=== PATIENT | male | born 1945 | race Caucasian/White ===

== ENCOUNTER 2020-09-01 10:14 | Inpatient (IN) | payer MEDICARE, OTHER, SELFPAY ==
[2020-09-01] VITALS (18 sets, daily range): BP systolic 103–155; BP diastolic 61–85; PULSE 65–103; RESP 16–32; TEMP 36.4–37; O2SAT 80–98; BMI 31.2
--- NOTE | 2020-09-01 10:26 | XR_ITS ---
WS: [id number] XR chest 1V portable [id number] REASON FOR EXAM: sob FINDINGS: In comparison to previous examination of 03/08/2019, the patient has a large mass density projected ov er the right hilum. There are diffuse interstitial and patchy alveolar infiltrative changes throughou t both lungs. No definite pleural fluid. Degenerative changes in the thoracic spine and previous right shoulder injury. XR/XR chest 1V portable [id number] IMPRESSION: Probable right central lung mass which is developed since the previous examinat ion of 03/08/2019. Unlikely that this represents consolidated lung overlapping t he right hilum. Diffuse infiltrative process throughout both lungs which is most compatible wit h acute/subacute pneumonitis. This is a patient that may benefit from a contras t-enhanced CT scan of the chest since there appear to be 2 processes occurring.
--- NOTE | 2020-09-01 10:26 | ECG_ITS ---
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 Measurements Intervals [place] Rate: 74 P: 18 TN: 195 QRS: -63 QRSD: 193 T: -6 QT: 434 QTc: 482 Interpretive Statements SINUS RHYTHM RIGHT BUNDLE BRANCH BLOCK LEFT ANTERIOR FASCICULAR BLOCK [QRS AXIS <= -45, QR IN I, RS IN II] MODERATE VOLTAGE CRITERIA FOR LVH, CONSIDER NORMAL VARIANT POSSIBLE SEPTAL MYOCARDIAL INFARCTION [30 ms Q WAVE IN V1/V2], PROBABLY OLD Compared to ECG 03/09/2019 02:44:39 Right bundle-branch block now present Left anterior fascicular block now present Myocardial infarct finding now present First degree AV block no longer present Intraventricular conduction delay no longer present T-wave abnormality no longer present Electronically Signed On 09-01-2020 21:22:57 OPERATIONAL ASSISTANT by Gissel Hussein M.D. [id number]
[2020-09-01] MEDS: albuterol 8 gm MDI 2 PUFF INHALATION (10:30)
--- NOTE | 2020-09-01 10:31 | W.ED.SOB ---
HPI - SOB/Dyspnea General: Chief Complaint: COVID symptoms Stated Complaint: SOB Time Seen by Provider: 09/01/20 10:21 Source: patient Mode of arrival: ambulatory Limitations: no limitations History of Present Illness: HPI Narrative: 75-year-old male states he has a history of COPD and has been a longtime smoker. He states that he has had increasing shortness of breath over the last 1 to 2 weeks with getting much worse over the last 2 days. He had increased wheezing as well. He has had a cough and denies any fever. Patient here is 82% on room air. He states he is not on oxygen at home. Denies any worsening or improving factors. Associated symptoms: Deny abdominal pain, chest pain, fever(s), nausea or vomiting Review of Systems Const: Denies: fever(s), chills, body aches or change in appetite Eyes: Denies: blurry vision or eye discomfort ENMT: Denies: throat pain or dental pain Card: Denies: chest pain Resp: Reports: dyspnea and wheezing GI: Denies: abdominal pain, nausea, vomiting or diarrhea : Denies: dysuria Musc: Denies: neck pain or back pain Skin/Breast: Denies: rash Neuro: Denies: headache(s) Psych: Denies: depression Luciano/Lymph: Denies: easy bruising All/Imm: Denies: urticaria Physical Exam Const: COMMON NORMALS: no acute distress, patient oriented x3 and healthy appearing HENMT: COMMON NORMALS: normocephalic and atraumatic HEAD & SCALP: normocephalic and atraumatic Eye: COMMON NORMALS: Equal, round and reactive pupils present and EOMs intact bilaterally PUPIL: Yes Equal, round and reactive pupils present Neck/C-Spine: COMMON NORMALS: full ROM and supple Chest: COMMONS NORMALS: normal inspection of the chest and normal palpation of entire chest wall Resp: COMMON NORMALS: No retractions and No use of accessory muscles EFFORT & INSPECTION: Yes tachypneic AUSCULTATION: wheezes and diminished lung sounds Cardio: COMMON NORMALS: regular rate, regular rhythm and No murmurs present (Cardio) RATE: regular rate RHYTHM: regular rhythm GI: COMMON NORMALS: Normal to inspection, nondistended, normoactive bowel sounds present, Soft to palpation, non-tender and no masses PALPATION: Yes Soft to palpation Extremity: COMMON NORMALS: normal to inspection and full ROM Neuro: COMMON NORMALS: patient oriented x3, moves all extremities and no focal motor deficits Psych: COMMON NORMALS: mental status grossly normal, Normal thought process present and cooperative THOUGHT PROCESS: Normal thought process present Skin: COMMON NORMALS: no rashes or lesions noted and no wounds GENERAL SKIN EXAM: no rashes or lesions noted Course Vital Signs: Vital signs: Vital Signs Temperature 97.6 F 09/01/20 10:21 Pulse Rate 65 09/01/20 12:00 Respiratory Rate 19 H 09/01/20 12:00 Blood Pressure 131/68 09/01/20 12:00 Pulse Oximetry 91 09/01/20 12:00 MDM - SOB/Dyspnea MDM Narrative: Medical decision making narrative: Preston presents here with bilateral pneumonia likely Covid. His rapid Covid here is negative I believe he likely does have Covid and we will send off a PCR. Patient started IV antibiotics as well. X-ray appeared to have a mass I spoke to hospitalist and will admit. Patient still under contact precautions. Lab Data: Labs: Lab Results 09/01/20 09/01/20 09/01/20 Range/Units 10:35 11:00 11:00 WBC Cancelled Corrected WBC Cancelled RBC Cancelled Hgb Cancelled Hct Cancelled MCV Cancelled MCH Cancelled MCHC Cancelled RDW Cancelled Plt Count Cancelled MPV Cancelled Gran % Cancelled Neut % (Auto) Cancelled Lymph % (Auto) Cancelled [place] % (Auto) Cancelled Eos % (Auto) Cancelled Baso % (Auto) Cancelled Neut # (Auto) Cancelled Lymph # (Auto) Cancelled [place] # (Auto) Cancelled Eos # (Auto) Cancelled Baso # (Auto) Cancelled Absolute Gran (aut o) Cancelled Nucleated RBC % (a uto) Cancelled Nucleated RBCs # Cancelled PT Cancelled INR Cancelled Specimen Type Arterial Sample Site Radial, left ABG pH 7.47 H (7.35-7.45) ABG pCO2 42.8 (35-45) mmHg ABG pO2 67.1 L (80.0-100.0) mmH g ABG HCO3 30.9 H (22-26) mmol/L ABG Base Excess 6.3 H (-2.0-2.0) mmol/ L Jose Test Pos Hematocrit 44.1 (42-52) % Hgb O2 Saturation 92.4 L (95-100) % Carboxyhemoglobin 1.3 (0.4-20.1) %THgb Methemoglobin 0.8 (0.4-1.5) % Total Hemoglobin 14.4 (14-18) g/dL O2 Delivery Device Nc O2 Liters/Min 2.0 % FiO2 28.0 % App[employer] Real [employer] ID Amh Sodium (136-145) mmol/L Potassium (3.5-5.1) mmol/L Chloride (98-107) mmol/L Carbon Dioxide (22-29) mmol/L Anion Gap (5-19) BUN (8-23) mg/dL Creatinine (0.7-1.2) mg/dL GFR Calculation Glucose (65-115) mg/dL Calculated Osmolal ity (285-295) mOsm/k g Lactate (0.5-2.2) mmol/L Calcium (8.5-10.5) mg/dL Total Bilirubin (0.15-1.2) mg/dL AST (0-40) U/L ALT (0-41) U/L Alkaline Phosphata se (40-130) IU/L NT-Pro-B Natriuret Pep (0-450) pg/mL Total Protein (6.6-8.7) g/dL Albumin (3.5-5.2) g/dL Globulin (1.3-4.6) g/dL SARS-CoV-2 Ag (Rap id) (Negative) 09/01/20 09/01/20 09/01/20 Range/Units 11:00 11:00 11:28 WBC 10.0 Corrected WBC RBC 5.09 Hgb 14.1 Hct 44.2 MCV 86.8 MCH 27.7 L MCHC 31.9 RDW 13.5 Plt Count 301 MPV 9.5 Gran % Neut % (Auto) 76.7 Lymph % (Auto) 12.3 [place] % (Auto) 8.7 Eos % (Auto) 1.3 Baso % (Auto) 0.7 Neut # (Auto) 7.63 Lymph # (Auto) 1.2 [place] # (Auto) 0.9 Eos # (Auto) 0.1 Baso # (Auto) 0.1 Absolute Gran (aut o) Nucleated RBC % (a uto) 0 Nucleated RBCs # 0.0 PT INR Specimen Type Sample Site ABG pH (7.35-7.45) ABG pCO2 (35-45) mmHg ABG pO2 (80.0-100.0) mmH g ABG HCO3 (22-26) mmol/L ABG Base Excess (-2.0-2.0) mmol/ L Jose Test Hematocrit (42-52) % Hgb O2 Saturation (95-100) % Carboxyhemoglobin (0.4-20.1) %THgb Methemoglobin (0.4-1.5) % Total Hemoglobin (14-18) g/dL O2 Delivery Device O2 Liters/Min % FiO2 % [employer] ID Sodium 146 H (136-145) mmol/L Potassium 3.4 L (3.5-5.1) mmol/L Chloride 108 H (98-107) mmol/L Carbon Dioxide 31 H (22-29) mmol/L Anion Gap 10.4 (5-19) BUN 15 (8-23) mg/dL Creatinine 1.0 (0.7-1.2) mg/dL GFR Calculation Not Reportable Glucose 65 (65-115) mg/dL Calculated Osmolal ity 301 H (285-295) mOsm/k g Lactate 1.3 (0.5-2.2) mmol/L Calcium 10.1 (8.5-10.5) mg/dL Total Bilirubin 0.5 (0.15-1.2) mg/dL AST 31 (0-40) U/L ALT 26 (0-41) U/L Alkaline Phosphata se 108 (40-130) IU/L NT-Pro-B Natriuret Pep 315 (0-450) pg/mL Total Protein 7.3 (6.6-8.7) g/dL Albumin 3.1 L (3.5-5.2) g/dL Globulin 4.2 (1.3-4.6) g/dL SARS-CoV-2 Ag (Rap id) (Negative) 09/01/20 09/01/20 Range/Units 11:28 11:30 WBC Corrected WBC RBC Hgb Hct MCV MCH MCHC RDW Plt Count MPV Gran % Neut % (Auto) Lymph % (Auto) [place] % (Auto) Eos % (Auto) Baso % (Auto) Neut # (Auto) Lymph # (Auto) [place] # (Auto) Eos # (Auto) Baso # (Auto) Absolute Gran (aut o) Nucleated RBC % (a uto) Nucleated RBCs # PT 14.90 INR 1.13 Specimen Type Sample Site ABG pH (7.35-7.45) ABG pCO2 (35-45) mmHg ABG pO2 (80.0-100.0) mmH g ABG HCO3 (22-26) mmol/L ABG Base Excess (-2.0-2.0) mmol/ L Jose Test Hematocrit (42-52) % Hgb O2 Saturation (95-100) % Carboxyhemoglobin (0.4-20.1) %THgb Methemoglobin (0.4-1.5) % Total Hemoglobin (14-18) g/dL O2 Delivery Device O2 Liters/Min % FiO2 % [employer] ID Sodium (136-145) mmol/L Potassium (3.5-5.1) mmol/L Chloride (98-107) mmol/L Carbon Dioxide (22-29) mmol/L Anion Gap (5-19) BUN (8-23) mg/dL Creatinine (0.7-1.2) mg/dL GFR Calculation Glucose (65-115) mg/dL Calculated Osmolal ity (285-295) mOsm/k g Lactate (0.5-2.2) mmol/L Calcium (8.5-10.5) mg/dL Total Bilirubin (0.15-1.2) mg/dL AST (0-40) U/L ALT (0-41) U/L Alkaline Phosphata se (40-130) IU/L NT-Pro-B Natriuret Pep (0-450) pg/mL Total Protein (6.6-8.7) g/dL Albumin (3.5-5.2) g/dL Globulin (1.3-4.6) g/dL SARS-CoV-2 Ag (Rap id) Negative (Negative) Imaging Data^: CXR: Radiologist's impression: [address] [address] XRay Report Signed Patient: Preston Knowles Unit #: [id number] : 1945 Age/Sex: 75 / M ADM Date: 09/01/20 Loc: ER Room/Bed: Attending Dr: Ordering Provider/Ordering MD: Brent Dalton MD Date of Service: 09/01/20 Procedure(s): XR chest 1V portable [id number] Accession Number(s): [id number] Report Number: [id number] WS: [id number] XR chest 1V portable [id number] REASON FOR EXAM: sob FINDINGS: In comparison to previous examination of 03/08/2019, the patient has a large mass density projected over the right hilum. There are diffuse interstitial and patchy alveolar infiltrative changes throughout both lungs. No definite pleural fluid. Degenerative changes in the thoracic spine and previous right shoulder injury. XR/XR chest 1V portable [id number] IMPRESSION: Probable right central lung mass which is developed since the previous examination of 03/08/2019. Unlikely that this represents consolidated lung overlapping the right hilum. Diffuse infiltrative process throughout both lungs which is most compatible with acute/subacute pneumonitis. This is a patient that may benefit from a contrast-enhanced CT scan of the chest since there appear to be [address] Chest: Radiologist's impression: [place] [address] CT Scan Report Signed Patient: Preston Knowles Unit #: [id number] : 1945 Age/Sex: 75 / M ADM Date: 09/01/20 Loc: ER Room/Bed: Attending Dr: Ordering Provider/Ordering MD: Brent Dalton MD Date of Service: 09/01/20 Procedure(s): CT angio chest PE protcl [id number] Accession Number(s): [id number] Report Number: [id number] WS: [id number] CT CHEST ANGIOGRAPHY WITH REFORMATS HISTORY: cp TECHNIQUE: Contiguous axial images are obtained through the chest during arterial injection of intravenous contrast. Images are reconstructed to evaluate the pulmonary arteries. MIP imaging also reviewed. All CT scans at [facility] use at least one of these dose optimization techniques: automated exposure control; mA and/or kV adjustment per patient size (includes targeted exams where dose is matched to clinical indication); or iterative reconstruction. CONTRAST: Omnipaque 350; 95 mL IV. DLP: 561.82 mGy.cm COMPARISON: None available. Adequate opacification of the pulmonary arteries. Through the segmental branches no pulmonary embolism. No RIGHT heart strain. No pericardial pleural effusions. Thoracic aorta is normal size with mild atherosclerosis. Extensive bilateral patchy areas of consolidation and groundglass in a peripheral and basilar distribution which can be seen with Covid 19. No adenopathy. Visualized upper abdominal structures are negative. Mild anterior wedging of T4. CT/CT angio chest PE protcl [id number] IMPRESSION: 1. No pulmonary embolism. 2. Extensive bilateral consolidations and groundglass attenuation. Typical distribution for Covid 19. Critical Care Time Critical Care Time: Critical Care Time: Yes Total Critical Care Time: 36 Attestation: This case had a high probability of a clinically significant, sudden, or life threatening deterioration of this patient's condition which required my full and direct attention, intervention and personal management. 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
[2020-09-01 10:47] LABS: ABG PCO2 42.8 mmHg (35-45); ABG PH Result 7.47 (7.35-7.45); Arterial Blood Gas Hematocrit 44.1 % (42-52); Base Excess ABG 6.3 mmol/L (-2.0-2.0); Blood Gas Allen Test Pos; Blood Gas Operator Identificat AMH; Blood Gas Sample Site Radial, left; Blood Gas Sample Type Arterial; Carboxyhemoglobin 1.3 %THgb (0.4-20.1); HCO3 ABG 30.9 mmol/L (22-26); HGB O2 Sat 92.4 % (95-100); Methemoglobin 0.8 % (0.4-1.5); Oxygen Device NC; PO2 ABG 67.1 mmHg (80.0-100.0); Total Hemoglobin 14.4 g/dL (14-18)
--- NOTE | 2020-09-01 10:58 | CT_ITS ---
WS: [id number] CT CHEST ANGIOGRAPHY WITH REFORMATS HISTORY: cp TECHNIQUE: Contiguous axial images are obtained through the chest during arterial injection of intrav enous contrast. Images are reconstructed to evaluate the pulmonary arteries. MIP imaging also reviewe d. All CT scans at [facility] use at least one of these dose optimization techniques: aut omated exposure control; mA and/or kV adjustment per patient size (includes targeted exams where dose is matched to clinical indication); or iterative reconstruction. CONTRAST: Omnipaque 350; 95 mL IV. DLP: 561.82 mGy.cm COMPARISON: None available. Adequate opacification of the pulmonary arteries. Through the segmental branches no pulmonary embolis m. No RIGHT heart strain. No pericardial pleural effusions. Thoracic aorta is normal size with mild a therosclerosis. Extensive bilateral patchy areas of consolidation and groundglass in a peripheral and basilar distrib ution which can be seen with Covid 19. No adenopathy. Visualized upper abdominal structures are negative. Mild anterior wedging of T4. CT/CT angio chest PE protcl [id number] IMPRESSION: 1. No pulmonary embolism. 2. Extensive bilateral consolidations and groundglass attenuation. Typical dis tribution for Covid 19.
--- NOTE | 2020-09-01 11:14 | PC.NURSE ---
Pt COVID status After triage/assessment, while informing patient the orders of a rapid COVID swab, patient then said he tested positive 1 week ago at a free clinic. Patient was asked 3x by 3 different staff, each time patient denied being tested.
[2020-09-01 11:44] LABS: Basophils # 0.1 10^3/uL (0.0-0.1); Basophils % 0.7 %; Eosinophils # 0.1 10^3/uL (0.0-0.8); Eosinophils % 1.3 %; Hematocrit 44.2 % (42.0-52.0); Hemoglobin 14.1 g/dL (11.7-16.6); Lymphocytes # 1.2 10^3/uL (0.8-4.8); Lymphocytes % 12.3 %; Mean Corpuscular HGB Conc 31.9 g/dL (30.0-36.0); Mean Corpuscular Hemoglobin 27.7 pg (28.0-34.0); Mean Corpuscular Volume 86.8 fL (80-94); Mean Platelet Volume 9.5 fL (7.4-10.4); Monocytes # 0.9 10^3/uL (0.2-0.9); Monocytes % 8.7 %; Neutrophils # 7.63 10^3/uL (1.8-7.7); Neutrophils % 76.7 %; Nucleated Red Blood Cells % 0 %; Platelet Count 301 10^3/cmm (130-400); Red Blood Count 5.09 10^6/uL (4.1-5.3); Red Cell Distribution Width 13.5 % (12.1-15.1)
[2020-09-01 11:49] LABS: INR 1.13 (0.8-1.2)
[2020-09-01 11:49] LABS: Alanine Aminotransferase 26 U/L (0-41); Albumin Level 3.1 g/dL (3.5-5.2); Alkaline Phosphatase 108 IU/L (40-130); Aspartate Amino Transferase 31 U/L (0-40); Blood Urea Nitrogen 15 mg/dL (8-23); Calcium 10.1 mg/dL (8.5-10.5); Carbon Dioxide 31 mmol/L (22-29); Chloride 108 mmol/L (98-107); Globulin 4.2 g/dL (1.3-4.6); Glucose 65 mg/dL (65-115); NT Pro B Type Natriuretic Pept 315 pg/mL (0-450); Osmolality Calculated 301 mOsm/kg (285-295); Sodium 146 mmol/L (136-145); Total Bilirubin 0.5 mg/dL (0.15-1.2); Total Protein 7.3 g/dL (6.6-8.7)
[2020-09-01 11:50] LABS: Anion Gap 10.4 (5-19); Potassium 3.4 mmol/L (3.5-5.1)
[2020-09-01 11:59] LABS: Lactate (Lactic Acid level) 1.3 mmol/L (0.5-2.2)
[2020-09-01 12:03] LABS: SARS Covid-2 Antigen Negative (Negative)
[2020-09-01] MEDS: iohexol 350 mg/mL 100 mL Btl IV (12:37)
[2020-09-01] MEDS: cefTRIAXone 1,000 MG in sodium chloride 0.9% (plus) 50 ML 100 MG IV (12:42)
[2020-09-01] MEDS: azithromycin 500 MG in sodium chloride 0.9% 250 ML 250 MG IV (12:42)
--- NOTE | 2020-09-01 14:36 | P.HP_ITS ---
Providers/Chief Complaint Primary Care Provider: Jero Juárez MD Chief Complaint: SOB History of Present Illness Preston Knowles is a 75 year old male presents to emergency department with gradually worsening shortness of breath over the last couple of weeks. Reports dry cough but denies fever or chills. Reports that he has good appetite and oral intake. He does not use oxygen at home and was saturating in the low 80s when he presented. Reports that approximately 1 week ago he had been tested and was positive for COVID-19. CT scan of the chest showed evidence of typical COVID-19 infiltrates. Patient otherwise denied any complaints including chest pain or abdominal pain. 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) Card: Denies: chest pain, edema or lightheadedness Resp: Reports: dyspnea; Denies: productive cough GI: Denies: abdominal pain, nausea, vomiting, dysphagia, diarrhea, co nstipation, hematochezia or melena Musc: Denies: joint pain or joint swelling Skin/Breast: Denies: rash or erythema Neuro: Reports: headache(s) (Frontal off-and-on for the last week); Denies: weakness in extremities Psych: Denies: depression Endo: Denies: excessive sweating Luciano/Lymph: Denies: easy bleeding or tender lymph nodes All/Imm: Denies: throat swelling Medications/Allergies Home Medications Medication Instructions Recorded Confirmed Last Taken Type Unable to Assess 09/01/20 09/01/20 Unknown History Allergies Allergy/AdvReac Type Severity Reaction Status Date / Time shellfish derived Allergy ADR-Gastrointestinal Verified 09/01/20 10:33 Upset PFSH Acute PFSH: Medical History (Updated 09/01/20 @ 14:44 by Tarun Cheng MD) COPD (chronic obstructive pulmonary disease) Diabetes mellitus type 2 in obese Surgical History (Updated 09/01/20 @ 14:44 by Tarun Cheng MD) H/O shoulder surgery Previous back surgery Family History (Updated 09/01/20 @ 14:48 by Tarun Cheng MD) Mother , Old age, at 94 No problems noted. Father , Old age in mid 80s No problems noted. Social History (Updated 09/01/20 @ 14:49 by Tarun Cheng MD) Smoking and tobacco status: former smoker Alcohol intake: former Substance/Drug Use: never Marital status: Vitals/I&O/Wt Last Vital Signs Temp 97.6 F 09/01/20 10:21 Pulse 65 09/01/20 12:00 Resp 19 H 09/01/20 12:00 BP 131/68 09/01/20 12:00 Pulse Ox 91 09/01/20 12:00 08/31/20 09/01/20 09/01/20 22:59 06:59 14:59 Intake Total 54.167 / 54.167 Balance 54.167 / 54.167 Weight last 48 hrs Weight 113.398 kg Physical Exam Const: COMMON NORMALS: no acute distress, patient oriented x3 and alert HENMT: COMMON NORMALS: normocephalic and atraumatic HEAD & SCALP: normocephalic and atraumatic OTHER: Mucous membranes dry Eye: COMMON NORMALS: EOMs intact bilaterally, conjunctivae normal and no scleral icterus CONJUNCTIVA: Yes conjunctivae normal Neck/C-Spine: COMMON NORMALS: no lymphadenopathy and no meningeal signs Lymph: LYMPHATIC: no lymphadenopathy noted Chest: COMMONS NORMALS: normal palpation of entire chest wall Resp: COMMON NORMALS: No use of accessory muscles AUSCULTATION: clear to auscultation bilaterally OTHER: Bilateral rails. Cardio: COMMON NORMALS: regular rate, regular rhythm and No murmurs present (Cardio) RATE: regular rate RHYTHM: regular rhythm OTHER: No lower extremity edema GI: COMMON NORMALS: Soft to palpation and non-tender PALPATION: Yes Soft to palpation RECTAL EXAM: Yes deferred : COMMON NORMALS: Yes no CVA tenderness BLADDER/KIDNEY EXAM: Yes no CVA tenderness Back/Pelvis: COMMON NORMALS: no CVA tenderness and thoracic and lumbar spine normal to inspection Extremity: COMMON NORMALS: normal to inspection and capillary refill normal Neuro: COMMON NORMALS: patient oriented x3 and no focal motor deficits SENSORIUM/ORIENTATION: Yes alert MENINGEAL SIGNS: Yes no meningeal signs Psych: COMMON NORMALS: mental status grossly normal, Normal thought process present and cooperative THOUGHT PROCESS: Normal thought process present Skin: COMMON NORMALS: no rashes or lesions noted GENERAL SKIN EXAM: no rashes or lesions noted Data : 09/01/20 11:28 09/01/20 11:00 Micro: Microbiology 09/01/20 11:27 Blood Culture - Preliminary Blood SPECIMEN COLLECTED 09/01/20 11:26 Blood Culture - Preliminary Blood SPECIMEN COLLECTED A&P Assessment and plan (1) Acute respiratory failure with hypoxia: Status: Acute (2) Pneumonia due to COVID-19 virus: Status: Acute (3) COPD (chronic obstructive pulmonary disease): Status: Acute (4) Diabetes mellitus type 2 in obese: Status: Acute (5) Hypokalemia: Status: Acute (6) Dehydration with hypernatremia: Status: Acute (7) Obesity (BMI 30.0-34.9): Status: Acute Additional A&P Information PLAN: Gentle IV hydration with half normal saline and potassium. Replete potassium and check magnesium. Start patient on dexamethasone and remdesivir. Reconcile medications. Patient could not recall medications he is taking. Sliding scale insulin for now. Protonix for GI protection. Attestations Medical Necessity Statement*: Patient with acute hypoxic respite failure due to COVID-19 pneumonia requires close inpatient monitoring and treatment. I expect patient will require more than 2 midnights. 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
--- NOTE | 2020-09-01 15:21 | PC.NURSE ---
Attempted to call report at 1500, was immediately placed on hold, waited 8 mins before calling back, rang for 2 mins with no answer, called south side line, nurse answered and placed on hold for 13+ mins
[2020-09-01] MEDS: remdesivir 200 MG in sodium chloride 0.9% (100 ml) 100 ML 100 MG IV (16:02)
[2020-09-01] MEDS: dexamethasone 4 mg/mL INJ 6 MG IVP (16:11)
[2020-09-01] MEDS: potassium chloride ER 20 mEq Tablet 40 MEQ PO (16:11)
[2020-09-01] MEDS: enoxaparin 40 mg/0.4 mL Syringe SUBCUT (16:11)
[2020-09-01] MEDS: sodium chlor 0.45% +KCl 20 mEq 20 MEQ/1,000 ML BAG 75 MEQ IV (16:11)
--- NOTE | 2020-09-01 16:35 | PC.PHAR ---
PATIENT WAS UNABLE TO VERIFY MEDICATIONS, [facility] WITH NO RESPONSE. [facility] AT 1530 WITH MEDICATION LIST. UPDATED MED LIST [facility] LIST FROM [facility].
[2020-09-01 16:54] LABS: Glucose Point of Care 251 mg/dL (70-110)
[2020-09-01 17:25] LABS: Magnesium 2.1 mg/dL (1.7-2.3)
[2020-09-01 18:16] LABS: Add Urine Microscopic? YES; Bilirubin Urine Neg (Negative); Blood Urine Neg (Negative); Glucose Urine UA 4+ (Normal); Ketones Urine Negative (Negative); Leukocyte Esterase Urine Negative (Negative); Nitrate Urine Negative (Negative); Protein Urine Trace (Negative); Urine Appearance Clear (CLEAR); Urine Color Yellow (Yellow); Urobilinogen Urine 1 mg/dL (Negative); pH Urine 5 (5-7)
[2020-09-01 18:25] LABS: Add Urine Culture? No; Bacteria Urine TRACE /hpf; Hyaline Casts Urine 0-4 /lpf; RBC Urine 0-4 /hpf (0-2); Squamous Epithelial Cell Urine 0-4 /hpf (0-5)
[2020-09-01 20:22] LABS: Glucose Point of Care 340 mg/dL (70-110)
[2020-09-02] VITALS (9 sets, daily range): BP systolic 115–161; BP diastolic 66–78; PULSE 52–61; RESP 17–19; TEMP 36.4–36.9; O2SAT 91–94
[2020-09-02 05:45] LABS: Basophils % 0.3 %; Hematocrit 40.6 % (42.0-52.0); Hemoglobin 12.7 g/dL (11.7-16.6); Lymphocytes % 10.6 %; Mean Corpuscular HGB Conc 31.3 g/dL (30.0-36.0); Mean Corpuscular Hemoglobin 27.8 pg (28.0-34.0); Mean Corpuscular Volume 88.8 fL (80-94); Mean Platelet Volume 9.5 fL (7.4-10.4); Monocytes # 0.7 10^3/uL (0.2-0.9); Monocytes % 7.1 %; Neutrophils # 7.81 10^3/uL (1.8-7.7); Neutrophils % 81.6 %; Nucleated Red Blood Cells % 0 %; Platelet Count 259 10^3/cmm (130-400); Red Blood Count 4.57 10^6/uL (4.1-5.3); Red Cell Distribution Width 13.7 % (12.1-15.1); White Blood Count 9.6 10^3/uL (4.0-10.0)
[2020-09-02 05:56] LABS: Alanine Aminotransferase 18 U/L (0-41); Albumin Level 2.8 g/dL (3.5-5.2); Alkaline Phosphatase 91 IU/L (40-130); Anion Gap 14.3 (5-19); Aspartate Amino Transferase 18 U/L (0-40); Blood Urea Nitrogen 27 mg/dL (8-23); Calcium 9.8 mg/dL (8.5-10.5); Carbon Dioxide 25 mmol/L (22-29); Chloride 107 mmol/L (98-107); Globulin 3.7 g/dL (1.3-4.6); Glucose 203 mg/dL (65-115); Magnesium 2.2 mg/dL (1.7-2.3); Osmolality Calculated 305 mOsm/kg (285-295); Phosphorus 4.1 mg/dL (2.5-4.5); Potassium 4.3 mmol/L (3.5-5.1); Sodium 142 mmol/L (136-145); Total Bilirubin 0.3 mg/dL (0.15-1.2); Total Protein 6.5 g/dL (6.6-8.7)
[2020-09-02 06:02] LABS: NT Pro B Type Natriuretic Pept 350 pg/mL (0-450)
[2020-09-02] MEDS: sodium chlor 0.45% +KCl 20 mEq 20 MEQ/1,000 ML BAG 75 MEQ IV (06:07)
[2020-09-02 06:17] LABS: Estmated Average Glucose 200; Hemoglobin A1C 8.6 % (4.0-6.0)
[2020-09-02 06:38] LABS: Glucose Point of Care 210 mg/dL (70-110)
[2020-09-02] MEDS: pantoprazole DR 40 mg Tablet PO (08:28)
[2020-09-02 11:49] LABS: Glucose Point of Care 310 mg/dL (70-110)
--- NOTE | 2020-09-02 13:37 | PM.PN ---
Subjective Subjective: Interval history: Patient reports feeling slightly better. Continues to have nonproductive cough. Denies chest pain or abdominal pain. Vitals/I&O/Wt Last Vital Signs Temp 98.4 F 09/02/20 12:00 Pulse 56 L 09/02/20 12:00 Resp 18 09/02/20 12:00 BP 119/69 09/02/20 12:00 Pulse Ox 91 09/02/20 12:00 09/01/20 09/02/20 09/02/20 22:59 06:59 14:59 Intake Total 645.833 / 562.470 3987 / 1800.000 480 / 480 Output Total 150 / 150 200 / 200 Balance 645.833 / 700.000 950 / 1650.000 280 / 280 Weight last 48 hrs Weight 113.398 kg Physical Exam Const: COMMON NORMALS: no acute distress and patient oriented x3 Resp: COMMON NORMALS: normal respiratory effort OTHER: Bilateral rails. Cardio: COMMON NORMALS: regular rate, regular rhythm and S2 normal heart sound present RATE: regular rate RHYTHM: regular rhythm HEART SOUNDS: S2 normal heart sound present OTHER: No lower extremity edema GI: COMMON NORMALS: Normal to inspection, nondistended, normoactive bowel sounds present, Soft to palpation and non-tender PALPATION: Yes Soft to palpation Neuro: COMMON NORMALS: patient oriented x3 and no focal motor deficits Data : 09/02/20 05:19 09/02/20 05:19 Micro: Microbiology 09/01/20 11:27 Blood Culture - Preliminary Blood NEGATIVE TO DATE 09/01/20 11:26 Blood Culture - Preliminary Blood NEGATIVE TO DATE A&P Assessment and plan (1) Acute respiratory failure with hypoxia: Status: Acute (2) Pneumonia due to COVID-19 virus: Status: Acute (3) COPD (chronic obstructive pulmonary disease): Not in exacerbation Status: Acute (4) Diabetes mellitus type 2 in obese: Status: Acute (5) Hypokalemia: Status: Acute (6) Dehydration with hypernatremia: Status: Acute (7) Obesity (BMI 30.0-34.9): Status: Acute Additional A&P Information PLAN: DC IV fluids. Continue dexamethasone and remdesivir. Encouraged oral intake. Restart home medications but Lantus only at 40 units at bedtime and continue sliding scale insulin. Physical therapy. Hold diuretics for now and reassess once patient's oral intake improves. Attestations Medical Necessity Statement*: Patient with acute respiratory failure and pneumonia requires close inpatient monitoring and treatment. 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
--- NOTE | 2020-09-02 13:43 | PC.RESP ---
Pulmonary Rehab information sent to patient.
[2020-09-02] MEDS: dexamethasone 4 mg/mL INJ 6 MG IVP (14:35)
[2020-09-02] MEDS: enoxaparin 40 mg/0.4 mL Syringe SUBCUT (14:35)
[2020-09-02 16:47] LABS: Glucose Point of Care 304 mg/dL (70-110)
[2020-09-02] MEDS: remdesivir 100 MG in sodium chloride 0.9% (100 ml) 100 ML IV (17:27)
[2020-09-02] MEDS: gemfibrozil 600 mg Tablet PO (17:27)
[2020-09-02] MEDS: insulin glargine 100 units/1 mL 40 UNIT SUBCUT (20:16)
[2020-09-02 20:26] LABS: Glucose Point of Care 356 mg/dL (70-110)
[2020-09-03] VITALS (8 sets, daily range): BP systolic 125–146; BP diastolic 52–81; PULSE 56–70; RESP 16–19; TEMP 36.4–36.7; O2SAT 90–94
[2020-09-03 06:22] LABS: Basophils # 0.1 10^3/uL (0.0-0.1); Basophils % 0.7 %; Eosinophils # 0.1 10^3/uL (0.0-0.8); Eosinophils % 0.7 %; Hemoglobin 12.4 g/dL (11.7-16.6); Lymphocytes # 1.3 10^3/uL (0.8-4.8); Lymphocytes % 13.8 %; Mean Corpuscular Hemoglobin 27.7 pg (28.0-34.0); Mean Corpuscular Volume 89.5 fL (80-94); Mean Platelet Volume 10.1 fL (7.4-10.4); Monocytes # 0.6 10^3/uL (0.2-0.9); Neutrophils # 7.57 10^3/uL (1.8-7.7); Neutrophils % 78.3 %; Nucleated Red Blood Cells % 0 %; Platelet Count 226 10^3/cmm (130-400); Red Blood Count 4.47 10^6/uL (4.1-5.3); Red Cell Distribution Width 13.7 % (12.1-15.1); White Blood Count 9.7 10^3/uL (4.0-10.0)
[2020-09-03 06:46] LABS: Glucose Point of Care 248 mg/dL (70-110)
[2020-09-03 06:52] LABS: Alanine Aminotransferase 22 U/L (0-41); Albumin Level 2.6 g/dL (3.5-5.2); Alkaline Phosphatase 89 IU/L (40-130); Anion Gap 12.5 (5-19); Aspartate Amino Transferase 25 U/L (0-40); Blood Urea Nitrogen 30 mg/dL (8-23); Calcium 9.5 mg/dL (8.5-10.5); Carbon Dioxide 26 mmol/L (22-29); Chloride 106 mmol/L (98-107); Globulin 3.8 g/dL (1.3-4.6); Glucose 304 mg/dL (65-115); Magnesium 2.1 mg/dL (1.7-2.3); Osmolality Calculated 308 mOsm/kg (285-295); Potassium 4.5 mmol/L (3.5-5.1); Sodium 140 mmol/L (136-145); Total Bilirubin 0.3 mg/dL (0.15-1.2); Total Protein 6.4 g/dL (6.6-8.7)
[2020-09-03] MEDS: tamsulosin 0.4 mg Capsule PO (08:34)
[2020-09-03] MEDS: gemfibrozil 600 mg Tablet PO ×2 (08:34→17:58)
[2020-09-03] MEDS: pantoprazole DR 40 mg Tablet PO (08:34)
[2020-09-03 10:50] LABS: Glucose Point of Care 298 mg/dL (70-110)
--- NOTE | 2020-09-03 12:07 | P.PN_ITS ---
Subjective Subjective: Interval history: Patient reports feeling slightly better but desaturates once oxygen is removed. Requires 2 L of oxygen to saturate in the low 90s. Reports that his appetite and oral intake much improved. Overall reports feeling weak. Vitals/I&O/Wt Last Vital Signs Temp 98.1 F 09/03/20 08:00 Pulse 58 L 09/03/20 09:41 Resp 16 09/03/20 08:00 BP 146/67 09/03/20 08:00 Pulse Ox 92 09/03/20 09:41 09/02/20 09/03/20 09/03/20 22:59 06:59 14:59 Intake Total 520 / 1000 360 / 360 Output Total 700 / 900 650 / 1550 Balance -180 / 100 -650 / -550 360 / 360 Physical Exam Const: COMMON NORMALS: no acute distress and patient oriented x3 Resp: COMMON NORMALS: normal respiratory effort OTHER: Minimal bibasilar Rales. Overall decreased air movement. Cardio: COMMON NORMALS: regular rate, regular rhythm and S2 normal heart sound present RATE: regular rate RHYTHM: regular rhythm HEART SOUNDS: S2 normal heart sound present OTHER: No lower extremity edema GI: COMMON NORMALS: Normal to inspection, nondistended, normoactive bowel sounds present, Soft to palpation and non-tender PALPATION: Yes Soft to palpation Neuro: COMMON NORMALS: patient oriented x3 and no focal motor deficits Data : 09/03/20 06:11 09/03/20 06:11 Micro: Microbiology 09/01/20 11:27 Blood Culture - Preliminary Blood NEGATIVE TO DATE 09/01/20 11:26 Blood Culture - Preliminary Blood NEGATIVE TO DATE A&P Assessment and plan (1) Acute respiratory failure with hypoxia: Status: Acute (2) Pneumonia due to COVID-19 virus: Status: Acute (3) COPD (chronic obstructive pulmonary disease): Not in exacerbation Status: Acute (4) Diabetes mellitus type 2 in obese: Status: Acute (5) Hypokalemia: Status: Acute (6) Dehydration with hypernatremia: Status: Acute (7) Obesity (BMI 30.0-34.9): Status: Acute Additional A&P Information PLAN: Restart patient's Lasix and otherwise continue current monitoring and treatment. Encouraged oral intake. Physical therapy. Attestations Medical Necessity Statement*: Patient with COVID-19 pneumonia and acute hypoxic respiratory failure requires close inpatient monitoring and treatment until deemed safe for discharge. Coding Level of Care Code Acute Computer Discovery Teacher for g Fwd Diagnoses Acute respiratory failure with hypoxia J96.01 Pneumonia due to COVID-19 virus U07.1; J12.89 COPD (chronic obstructive pulmonary disease) J44.9 Diabetes mellitus type 2 in obese E11.69; E66.9 Hypokalemia E87.6 Dehydration with hypernatremia E87.0 Obesity (BMI 30.0-34.9) E66.9
[2020-09-03] MEDS: FUROsemide 40 mg Tablet PO (12:26)
[2020-09-03] MEDS: enoxaparin 40 mg/0.4 mL Syringe SUBCUT (15:37)
[2020-09-03] MEDS: dexamethasone 4 mg/mL INJ 6 MG IVP (15:37)
[2020-09-03 16:48] LABS: Glucose Point of Care 275 mg/dL (70-110)
[2020-09-03] MEDS: guaiFENesin 600 mg Tablet PO (17:58)
[2020-09-03] MEDS: remdesivir 100 MG in sodium chloride 0.9% (100 ml) 100 ML IV (17:59)
[2020-09-03 20:31] LABS: Glucose Point of Care 432 mg/dL (70-110)
[2020-09-03] MEDS: insulin glargine 100 units/1 mL 40 UNIT SUBCUT (21:56)
[2020-09-04] VITALS (7 sets, daily range): BP systolic 107–140; BP diastolic 65–78; PULSE 52–82; RESP 16–19; TEMP 35.7–37.1; O2SAT 90–96
[2020-09-04 05:36] LABS: Alanine Aminotransferase 22 U/L (0-41); Alkaline Phosphatase 88 IU/L (40-130); Anion Gap 13.4 (5-19); Aspartate Amino Transferase 22 U/L (0-40); Blood Urea Nitrogen 28 mg/dL (8-23); Calcium 9.3 mg/dL (8.5-10.5); Carbon Dioxide 27 mmol/L (22-29); Chloride 100 mmol/L (98-107); Globulin 3.6 g/dL (1.3-4.6); Glucose 256 mg/dL (65-115); Magnesium 2.1 mg/dL (1.7-2.3); Osmolality Calculated 296 mOsm/kg (285-295); Potassium 4.4 mmol/L (3.5-5.1); Sodium 136 mmol/L (136-145); Total Bilirubin 0.3 mg/dL (0.15-1.2); Total Protein 6.6 g/dL (6.6-8.7)
[2020-09-04 07:01] LABS: Glucose Point of Care 223 mg/dL (70-110)
[2020-09-04 07:01] LABS: Glucose Point of Care 369 mg/dL (70-110)
[2020-09-04] MEDS: guaiFENesin 600 mg Tablet PO ×2 (08:15→17:44)
[2020-09-04] MEDS: tamsulosin 0.4 mg Capsule PO ×2 (08:16→17:44)
[2020-09-04] MEDS: FUROsemide 40 mg Tablet PO (08:16)
[2020-09-04] MEDS: gemfibrozil 600 mg Tablet PO ×2 (08:16→17:44)
[2020-09-04] MEDS: pantoprazole DR 40 mg Tablet PO (08:16)
[2020-09-04 08:21] LABS: Basophils % 0.3 %; Eosinophils # 0.1 10^3/uL (0.0-0.8); Eosinophils % 0.8 %; Hematocrit 45.1 % (42.0-52.0); Hemoglobin 13.8 g/dL (11.7-16.6); Lymphocytes # 1.3 10^3/uL (0.8-4.8); Lymphocytes % 17.5 %; Mean Corpuscular HGB Conc 30.6 g/dL (30.0-36.0); Mean Corpuscular Hemoglobin 27.7 pg (28.0-34.0); Mean Corpuscular Volume 90.4 fL (80-94); Mean Platelet Volume 9.4 fL (7.4-10.4); Monocytes # 0.6 10^3/uL (0.2-0.9); Monocytes % 7.8 %; Neutrophils # 5.56 10^3/uL (1.8-7.7); Neutrophils % 73.1 %; Nucleated Red Blood Cells % 0 %; Platelet Count 280 10^3/cmm (130-400); Red Blood Count 4.99 10^6/uL (4.1-5.3); Red Cell Distribution Width 13.6 % (12.1-15.1); White Blood Count 7.6 10^3/uL (4.0-10.0)
--- NOTE | 2020-09-04 10:52 | P.PN_ITS ---
Subjective Subjective: Interval history: Patient reports further improving. He requires 3 L this morning to saturate in the low 90s. Reports that he has trouble initiating urination for some time. Reports that he is dry cough is getting better. His energy level is improving and oral intake. Vitals/I&O/Wt Last Vital Signs Temp 97.9 F 09/04/20 08:00 Pulse 52 L 09/04/20 09:00 Resp 17 09/04/20 08:00 BP 139/76 09/04/20 08:00 Pulse Ox 90 09/04/20 09:00 09/03/20 09/04/20 09/04/20 22:59 06:59 14:59 Intake Total 340 / 1180 480 / 480 Output Total 1200 / 1200 600 / 1800 300 / 300 Balance -860 / -20 -600 / -620 180 / 180 Physical Exam Const: COMMON NORMALS: no acute distress and patient oriented x3 Resp: COMMON NORMALS: normal respiratory effort OTHER: Minimal bibasilar Rales. Cardio: COMMON NORMALS: regular rate, regular rhythm and S2 normal heart sound present RATE: regular rate RHYTHM: regular rhythm HEART SOUNDS: S2 normal heart sound present OTHER: No lower extremity edema GI: COMMON NORMALS: Normal to inspection, nondistended, normoactive bowel sounds present, Soft to palpation and non-tender PALPATION: Yes Soft to palpation Neuro: COMMON NORMALS: patient oriented x3 and no focal motor deficits Data : 09/04/20 07:45 09/04/20 05:05 A&P Assessment and plan (1) Acute respiratory failure with hypoxia: Status: Acute (2) Pneumonia due to COVID-19 virus: Status: Acute (3) COPD (chronic obstructive pulmonary disease): Not in exacerbation Status: Acute (4) Diabetes mellitus type 2 in obese: Status: Acute (5) Hypokalemia: Status: Acute (6) Dehydration with hypernatremia: Improved. Status: Acute (7) Obesity (BMI 30.0-34.9): Status: Acute (8) Benign prostatic hyperplasia: Status: Acute Additional A&P Information PLAN: We will increase Flomax to twice daily. Patient will require outpatient follow- up with urology. Continue dexamethasone and remdesivir. Continue physical therapy. Attestations Medical Necessity Statement*: Patient with hypoxic respiratory failure due to COVID-19 requires close inpatient monitoring and treatment until deemed safe for discharge. Time Spent in Patient Care: 16 - 35 minutes Coding Level of Care Code Acute Funeral Planning Counselor for Chg Fwd Diagnoses Acute respiratory failure with hypoxia J96.01 Pneumonia due to COVID-19 virus U07.1; J12.89 COPD (chronic obstructive pulmonary disease) J44.9 Diabetes mellitus type 2 in obese E11.69; E66.9 Hypokalemia E87.6 Dehydration with hypernatremia E87.0 Obesity (BMI 30.0-34.9) E66.9 Benign prostatic hyperplasia N40.0
[2020-09-04 10:54] LABS: Glucose Point of Care 292 mg/dL (70-110)
[2020-09-04] MEDS: enoxaparin 40 mg/0.4 mL Syringe SUBCUT (15:22)
[2020-09-04] MEDS: dexamethasone 4 mg/mL INJ 6 MG IVP (15:22)
[2020-09-04 17:18] LABS: Glucose Point of Care 237 mg/dL (70-110)
[2020-09-04] MEDS: remdesivir 100 MG in sodium chloride 0.9% (100 ml) 100 ML IV (17:44)
--- NOTE | 2020-09-04 19:00 | PC.NURSE ---
Report to Inga MILLER.
[2020-09-04 20:29] LABS: Glucose Point of Care 370 mg/dL (70-110)
[2020-09-04] MEDS: insulin glargine 100 units/1 mL 40 UNIT SUBCUT (21:29)
[2020-09-05] VITALS (8 sets, daily range): BP systolic 114–129; BP diastolic 69–74; PULSE 50–80; RESP 17–19; TEMP 35.8–36.8; O2SAT 87–94
[2020-09-05 03:16] LABS: Coronavirus Lab Test PTC Positive
[2020-09-05 06:38] LABS: Glucose Point of Care 214 mg/dL (70-110)
[2020-09-05] MEDS: pantoprazole DR 40 mg Tablet PO (08:26)
[2020-09-05] MEDS: tamsulosin 0.4 mg Capsule PO (08:26)
[2020-09-05] MEDS: guaiFENesin 600 mg Tablet PO (08:26)
[2020-09-05] MEDS: gemfibrozil 600 mg Tablet PO (08:26)
[2020-09-05] MEDS: FUROsemide 40 mg Tablet PO (08:27)
[2020-09-05 11:02] LABS: Glucose Point of Care 308 mg/dL (70-110)
--- NOTE | 2020-09-05 11:51 | XR_ITS ---
WS: [id number] XR chest 1V portable [id number] REASON FOR EXAM: Pneumonia FINDINGS: In comparison to 09/01/2020 there has been significant clearing of the infiltrative processes in both the right and left lung. Moderate residual remains. Suspicion for right central lung mass shown to be extensive lung consolidation in the hilar, perihila r region by CT scan 09/01/2020. This abnormality has shown significant resolution. There may be small bilateral pleural effusions. XR/XR chest 1V portable [id number] IMPRESSION: Resolving infiltrates bilaterally. Possible small bilateral pleural effusions.
--- NOTE | 2020-09-05 13:31 | P.DS_ITS ---
Discharge Providers Date of Admission: 09/01/20 12:42 Date of Discharge: September 05, 2020 Attending Provider at Admission: Tarun Cheng MD Attending Provider at Discharge: Tarun Cheng MD Primary Care Provider: Jero Juárez MD Diagnoses at Discharge Discharge Diagnosis (1) Acute respiratory failure with hypoxia: Status: Acute (2) Pneumonia due to COVID-19 virus: Status: Acute (3) COPD (chronic obstructive pulmonary disease): Status: Acute (4) Diabetes mellitus type 2 in obese: Status: Acute (5) Hypokalemia: Status: Acute (6) Dehydration with hypernatremia: Status: Acute (7) Obesity (BMI 30.0-34.9): Status: Acute (8) Benign prostatic hyperplasia: Status: Acute Reason for Visit Reason for Visit: SOB Hospital Course Hospital Course Patient presented with shortness of breath and diagnosed with COVID-19 pneumonia. Patient was treated with remdesivir and dexamethasone and gradually improved and this morning reports feeling much better and strong enough to be dismissed home. He does not want to consider alf facility placement and he thinks he will do well with home health. He continues to cough but now it is more dry. Overall patient showed much improvement. His chest x-ray showing resolving infiltrates. His oral intake is much improved. I will continue patient's home medications with addition of dexamethasone for 5 more days and Protonix for GI protection. Patient will receive his last remdesivir dose today earlier than scheduled after which he can go home once oxygen and home health arranged. He is now requiring 3 L of oxygen to saturate in the low 90s. He is vitals are stable. Patient reports that he has been having trouble initiating urination therefore Flomax was increased to twice daily. Patient will discuss with Dr. Juárez if his urinary symptoms do not improve further evaluation with urology should be considered. Since patient's oral intake is back to normal I will continue his home dose of insulin. Physical Exam Const: COMMON NORMALS: no acute distress and patient oriented x3 Resp: COMMON NORMALS: normal respiratory effort OTHER: Very minimal bibasilar Rales Cardio: COMMON NORMALS: regular rate, regular rhythm and S2 normal heart sound present RATE: regular rate RHYTHM: regular rhythm HEART SOUNDS: S2 normal heart sound present OTHER: No lower extremity edema GI: COMMON NORMALS: Normal to inspection, nondistended, normoactive bowel sounds present, Soft to palpation and non-tender PALPATION: Yes Soft to palpation Neuro: COMMON NORMALS: patient oriented x3 and no focal motor deficits Discharge Data Data Completed and Pending: Completed Studies During Hospitalization Category Date Time Status CT angio chest PE protcl [id number] Urge nt Cat Scan 09/01/20 10:58 Completed XR chest 1V ashleigh ble [id number] Routine Exams 09/05/20 11:51 Completed XR chest 1V ashleigh ble [id number] Urgent Exams 09/01/20 10:26 Completed Pending at discharge Category Date Time Status Blood Culture Sta t Lab 09/01/20 11:27 Results Labs from last 24 hours 09/05/20 09/05/20 09/04/20 10:51 06:34 20:24 POC Glucose 308 214 370 Nasal/Oral COVID-1 9 PCR 09/04/20 09/01/20 16:58 12:50 POC Glucose 237 Nasal/Oral COVID-1 9 PCR Positive Vitals: Last Vital Signs Temp 98.2 F 09/05/20 12:00 Pulse 80 09/05/20 12:00 Resp 18 09/05/20 12:00 BP 117/70 09/05/20 12:00 Pulse Ox 90 09/05/20 12:00 Discharge Plan Discharge Patient Disposition: Home Health Service Condition: Stable Prescriptions: New pantoprazole 40 mg Tablet,Delayed Release (Dr/Ec) 40 mg PO DAILY Qty: 30 RF: 0 dexamethasone [Decadron] 6 mg tablet 6 mg PO DAILY Qty: 5 RF: 0 Continued Lantus Solostar U-100 Insulin 100 unit/mL (3 mL) Insulin Pen 85 unit SUBCUT BID RF: 0 Lasix 40 mg Tablet 40 mg PO DAILY RF: 0 gemfibrozil 600 mg Tablet 600 mg PO BID RF: 0 hydrochlorothiazide 12.5 mg Tablet 12.5 mg PO DAILY RF: 0 Vitamin D3 50 mcg (2,000 unit) Capsule 50 mcg PO DAILY RF: 0 Multivitamin-Minerals Capsule 1 cap PO DAILY RF: 0 insulin aspart U-100 100 unit/mL (3 mL) Insulin Pen 30 unit SUBCUT TID RF: 0 Fish Oil 500 mg Capsule 1,000 mg PO BID RF: 0 Changed tamsulosin 0.4 mg Capsule 0.4 mg PO BID Qty: 60 RF: 0 Discharge Orders: Discharge Order (Routine); Ordered 09/05/20 Ordered By: Tarun Cheng Other Ambulatory Orders: DME: Oxygen (Order) Location: None Selected Ordered By: Tarun Cheng Referrals: [facility] [Outside] [facility] Home Care ([facility]) [Outside] Jero Juárez MD [Primary Care Provider] - 4-7 days Discharge Diet: Usual diet Discharge Activity: Increase activity as tolerated Activity Restrictions/Additional Instructions: Please call your doctor or present to emergency department if your condition worsens or you develop diarrhea, Lightheadedness, fatigue or see blood in your stool or black stool. Please keep your blood pressure and heart rate log 3 times daily to present to primary care physician next visit for medication adjustment. Please discuss with Dr. Juárez to consider arranging urology follow-up if your urination does not improve with increase of Flomax to twice daily. Discharge Attestations Time Spent in Discharge Care*: greater than 30 min Quality Metrics Clinical Quality Measures During this hospital stay, did patient experience: None Coding Level of Care Code Acute Acute Care Surgeon for [facility] Fwd Diagnoses Acute respiratory failure with hypoxia J96.01 Pneumonia due to COVID-19 virus U07.1; J12.89 COPD (chronic obstructive pulmonary disease) J44.9 Diabetes mellitus type 2 in obese E11.69; E66.9 Hypokalemia E87.6 Dehydration with hypernatremia E87.0 Obesity (BMI 30.0-34.9) E66.9 Benign prostatic hyperplasia N40.0
[2020-09-05] MEDS: remdesivir 100 MG in sodium chloride 0.9% (100 ml) 100 ML IV (14:59)
[2020-09-05] MEDS: enoxaparin 40 mg/0.4 mL Syringe SUBCUT (14:59)
[2020-09-05] MEDS: dexamethasone 4 mg/mL INJ 6 MG IVP (14:59)
[2020-09-05 16:40] LABS: Glucose Point of Care 257 mg/dL (70-110)
--- NOTE | 2020-09-08 16:37 | PC.SOCIAL ---
Follow up completed post discharge. Patient indicates he is still weak. He continues to have shortness of breath but has not worsened since return home. He is on 2L O2. He continues to have a dry cough. Discussed deep breathing exercises. Discussed adding activity as able and to take more breaks to improve strength. He is taking the two new medications. He was unaware that the Flomax was changed to twice a day. He wants me to send the med list to [place] so they can fill this. We discussed to start taking twice a day for now. We reviewed appt with Dr Valdes at 8am 09/12/2020 and advised him to call tomorrow to verify how the telehealth visit is conducted. We discussed wearing mask if out in public, maintaining social distancing of 6 feet, washing hands 20 seconds at a time, and disinfecting highly utilized surfaces regularly. He verbalized understanding. He indicates care while in hospital was excellent . Voiced no questions or concerns.
== END 2020-09-05 17:21 | disposition home health service (06) | DRG 177 ==
LOC: ER 13:16 → MEDSURG 14:57
PROVIDERS: Admitting Provider Internal Medicine; Emergency Provider Emergency Medicine; PCP Family Medicine; Visit Provider Internal Medicine
DX: U07.1 COVID-19 (principal); J12.89 Other viral pneumonia; J96.01 Acute respiratory failure with hypoxia; E87.0 Hyperosmolality and hypernatremia; J44.9 Chronic obstructive pulmonary disease, unspecified; E11.9 Type 2 diabetes mellitus without complications; Z87.891 Personal history of nicotine dependence; E87.6 Hypokalemia; E86.0 Dehydration; E66.9 Obesity, unspecified; Z68.31 Body mass index [BMI] 31.0-31.9, adult; N40.0 Benign prostatic hyperplasia without lower urinary tract symptoms; Z79.4 Long term (current) use of insulin
CPT/HCPCS: 12345; 36415; 36416; 36600; 71045; 71275; 80053; 81001; 82805; 82962; 83036; 83605; 83735; 83880; 84100; 85025; 85610; 87040; 87426; 87635; 93005; 94640; 96372; 96375; 99283; J0456; J0696; J1100; J1650; J1815 ×2; J2930; J3535; J7050; Q9967

== ENCOUNTER 2023-04-15 08:22 | Inpatient (IN) | payer OTHER, SELFPAY ==
[2023-04-15] VITALS (7 sets, daily range): BP systolic 122–171; BP diastolic 56–84; PULSE 72–76; RESP 17–24; TEMP 36.8–37; O2SAT 90–97; BMI 34.9
--- NOTE | 2023-04-15 08:29 | ECG_ITS ---
[facility] Test Date: 2023-04-15 Pat Name: Preston Knowles Department: Room: Gender: Male Photographer Portrait: : 1945 Requested By: Giovany Roman Order Number: [id number] Judy MD: Gissel Hussein M.D. Measurements Intervals [place] Rate: 72 P: 23 ID: [id number] QRS: -54 QRSD: 173 T: 17 QT: 432 QTc: 474 Interpretive Statements SINUS RHYTHM WITH FIRST DEGREE AV BLOCK RIGHT BUNDLE BRANCH BLOCK [120+ ms QRS DURATION, UPRIGHT V1, 40+ ms S IN I/aVL/V4/V5/V6] LEFT ANTERIOR FASCICULAR BLOCK [QRS AXIS <= -45, QR IN I, RS IN II] POSSIBLE LEFT VENTRICULAR HYPERTROPHY [VOLTAGE CRITERIA PLUS LAE OR QRS WIDENING] POSSIBLE SEPTAL MYOCARDIAL INFARCTION , OF INDETERMINATE AGE [30 ms Q WAVE IN V1/V2] Compared to ECG 09/01/2020 10:49:29 First degree AV block now present Myocardial infarct finding still present Electronically Signed On 04-15-2023 21:10:52 CDT by Gisesl Hussein M.D. [email or web address] Solutionsnorth mississippi medical centerProChon Biotechuniversity hospitals beach[facility].[employer]/store/NU/[email or web address]/[id number] raymon
--- NOTE | 2023-04-15 08:33 | XRR_ITS ---
PROCEDURE INFORMATION: Exam: XR Right Ribs with PA Chest Exam date and time: 04/15/2023 8:41 AM Age: 77 years old Clinical indication: Injury or trauma; Fall; Rib area; Blunt trauma (contusions or hematomas); Additional info: Fall - needs ap cxr too TECHNIQUE: Imaging protocol: Radiologic exam of the right ribs with PA chest. Views: 3 views COMPARISON: 1. CR XR chest 2V* [id number] 09/26/2020 12:07 PM 2. CR XR chest 1V portable [id number] 09/05/2020 12:56 PM 3. CR XR chest 1V portable [id number] 09/01/2020 10:27 AM FINDINGS: Lungs: Asymmetric right upper lung patchy opacification. Minimal linear atelectasis versus scarring of the left lower lung. Pleural spaces: Unremarkable. No pleural effusion. No pneumothorax. Heart/Mediastinum: Stable. No cardiomegaly. Bones/joints: Mildly displaced posterolateral left 7th rib fracture. Mildly displaced lateral right 7th rib fracture. Degenerative changes along the spine and acromioclavicular joints. XR/XR ribs RT mn 3V w CXR1V [id number] IMPRESSION: 1. Mildly displaced bilateral 7th rib fractures. 2. Asymmetric right upper lung patchy opacification is nonspecific but may represent contusion in the setting of trauma.
--- NOTE | 2023-04-15 08:38 | ED_ITS ---
HPI - Weakness General: Chief complaint: Weakness Stated complaint: fall, rib pain Time Seen by Provider: 04/15/23 08:25 Source: patient Mode of arrival: ambulatory History of Present Illness: 77-year-old male presents emergency room complaining of rib pain. Patient fell last night. He slid out of his chair he is got some bruising on the right ribs and on his back. He is diabetic he is unsure what his blood sugar was. He s tates he did strike his head and he has a small abrasion on the right upper forehead but he denies loss of consciousness. He has bilateral chronic lower extremity edema. He states he just cannot get up and stand and walk he usually uses a cane at home when asked him specifically why he cannot walk if it is a balance issue or a strength issue he states he just feels like he does not have the strength to stand and walk. He is chronically on 2 L by nasal cannula and he is maintained that. He denies any chest pain. No history of previous coronary artery disease or stroke. Complaint: generalized weakness Onset (ago): day(s) Duration: constant Location: generalized Relieving factors: none Exacerbating factors: none Associated symptoms: Denies chest pain, chills, confusion, melena, decreased appetite, diaphoresis, dysuria, easy bruising, fever(s), headache(s), myalgias, nausea, rash, short of breath, syncope or vomiting Review of Systems Const: Reports: fatigue and malaise; Denies: fever(s), chills or diaphoresis ENMT: Denies: throat pain, ear or mastoid pain, nasal discharge or nasal congestion Card: Denies: chest pain, palpitations, irregular heart rhythm or syncope Resp: Denies: dyspnea, productive cough or non-productive cough GI: Denies: abdominal pain, nausea, vomiting or melena : Denies: dysuria, urinary frequency or urinary urgency Musc: Denies: neck pain or back pain Skin/Breast: Denies: rash or pruritus Neuro: Denies: headache(s) or confusion Luciano/Lymph: Denies: easy bruising PFS ED PFSH: Medical History Bifascicular block CKD stage 3 due to type 2 diabetes mellitus COPD (chronic obstructive pulmonary disease) Diabetes mellitus type 2 in obese Dyspnea on exertion HTN (hypertension) Surgical History H/O shoulder surgery Previous back surgery Family History Mother , Old age, at 94 No problems noted. Father , Old age in mid 80s No problems noted. Social History Smoking and tobacco status: former smoker Alcohol intake: former Substance/Drug Use: never Marital status: Physical Exam Const: GENERAL APPEARANCE: cooperative and comfortable ORIENTATION/CONSCIOUSNESS: Yes awake, Yes oriented to person, Yes oriented to place and Yes oriented to time HENMT: COMMON NORMALS: normocephalic, atraumatic and hearing grossly normal bilaterally HEAD & SCALP: normocephalic and atraumatic Resp: COMMON NORMALS: normal respiratory effort, No retractions, No use of accessory muscles and clear to auscultation bilaterally AUSCULTATION: clear to auscultation bilaterally Cardio: COMMON NORMALS: regular rate, regular rhythm and No murmurs present (Cardio) RATE: regular rate RHYTHM: regular rhythm GI: COMMON NORMALS: Soft to palpation and No hepatosplenomegaly present AUSCULTATION: Yes normoactive bowel sounds PALPATION: Yes Soft to palpation, No Tenderness to palpation present (GI), No Guarding due to palpation present (GI) and Yes No hepatosplenomegaly present Extremity: OTHER: Chronic venous stasis edema with skin changes and plaque-like rash. Involves the lower two thirds of the lower extremities. There is no significant edema and for the fact there is actually a fair amount of skin laxity at this time. No redness no erythema no drainage. Left foot diabetic ulcer wiht semipurulent base, no active drainage. Neuro: SENSORIUM/ORIENTATION: Yes oriented to person, Yes oriented to place and Yes oriented to time Course Vital Signs: Vital signs: Vital Signs Temperature 97.5 F L 04/17/23 14:02 Pulse Rate 63 04/17/23 14:02 Respiratory Rate 19 H 04/17/23 14:02 Blood Pressure 149/65 04/17/23 14:02 Pulse Oximetry 96 04/17/23 14:02 Oxygen Delivery Me thod Nasal Cannula 04/17/23 11:50 Oxygen Flow Rate 3 04/17/23 07:58 MDM - Weakness Medical Decision Making Labs and imaging reviewed. Patient unable to ambulate or even sit up at the bedside. He did have a syncopal episode prior to arrival. We will admit disc ussed with hospitalist. Further evaluation and monitoring of diabetic foot ulcer. Also noted to have seventh rib fractures bilaterally pain control as needed. Medical Records I reviewed the patient's medical records. Lab Data I reviewed the patient's lab results. 04/17/23 07:40 04/17/23 07:40 Radiology Impressions Ribs X-Ray 04/15/23 08:33 IMPRESSION: 1. Mildly displaced bilateral 7th rib fractures. 2. Asymmetric right upper lung patchy opacification is nonspecific but may represent contusion in the setting of trauma. Head CT 04/15/23 10:02 IMPRESSION: 1. No evidence of intracranial hemorrhage or mass effect. 2. Mild small vessel changes. Moderate parenchymal volume loss. 3. Intracranial vascular calcification. 4. No acute intracranial findings. Laboratory Results WBC 10.5 10^3/uL (4.0-10.0) H 04/15/23 08:55 RBC 4.82 10^6/uL (4.1-5.3) 04/15/23 08:55 Hgb 12.3 g/dL (11.7-16.6) 04/15/23 08:55 Hct 39.9 % (42.0-52.0) L 04/15/23 08:55 MCV 82.8 fl (80-94) 04/15/23 08:55 MCH 25.5 pg (28.0-34.0) L 04/15/23 08:55 MCHC 30.8 g/dL (30.0-36.0) 04/15/23 08:55 RDW 15.0 % (12.1-15.1) 04/15/23 08:55 Plt Count 365 10^3/cmm (130-400) 04/15/23 08:55 MPV 9.2 fL (7.4-10.4) 04/15/23 08:55 Neut % (Auto) 89.9 % 04/15/23 08:55 Lymph % (Auto) 5.4 % 04/15/23 08:55 [place] % (Auto) 3.8 % 04/15/23 08:55 Eos % (Auto) 0.1 % 04/15/23 08:55 Baso % (Auto) 0.3 % 04/15/23 08:55 Neut # (Auto) 9.48 10^3/uL (1.8-7.7) H 04/15/23 08:55 Lymph # (Auto) 0.6 10^3/uL (0.8-4.8) L 04/15/23 08:55 [place] # (Auto) 0.4 10^3/uL (0.2-0.9) 04/15/23 08:55 Eos # (Auto) 0.0 10^3/uL (0.0-0.8) 04/15/23 08:55 Baso # (Auto) 0.0 10^3/uL (0.0-0.1) 04/15/23 08:55 Nucleated RBC % (auto) 0 % 04/15/23 08:55 Nucleated RBCs # 0.0 /100WBC 04/15/23 08:55 D-Dimer >= 20.00 ug/mIFEU (0-0.59) H 04/15/23 08:55 Sodium 141 mmol/L (136-145) 04/15/23 08:55 Potassium 4.4 mmol/L (3.5-5.1) 04/15/23 08:55 Chloride 102 mmol/L (98-107) 04/15/23 08:55 Carbon Dioxide 25 mmol/L (22-29) 04/15/23 08:55 Anion Gap 18.4 (5-19) 04/15/23 08:55 BUN 33 mg/dL (8-23) H 04/15/23 08:55 Creatinine 1.6 mg/dL (0.7-1.2) H 04/15/23 08:55 GFR Calculation Not Reportable 04/15/23 08:55 Glucose 167 mg/dL (65-115) H 04/15/23 08:55 Estimat Average Glucose 189 04/15/23 08:55 Hemoglobin A1c 8.2 % (4.0-6.0) H 04/15/23 08:55 Calculated Osmolality 303 mOsm/kg (285-295) H 04/15/23 08:55 Lactic Acid 1.6 mmol/L (0.5-2.2) 04/15/23 08:55 Calcium 10.1 mg/dL (8.5-10.5) 04/15/23 08:55 Total Bilirubin 0.7 mg/dL (0.15-1.2) 04/15/23 08:55 AST 298 U/L (0-40) H 04/15/23 08:55 ALT 49 U/L (0-41) H 04/15/23 08:55 Alkaline Phosphatase 102 U/L (40-130) 04/15/23 08:55 Creatine Kinase 89246 U/L (39-308) H* 04/15/23 08:55 Troponin T Baseline 188 ng/L (0-15) H* 04/15/23 08:55 Troponin T 120 Minute 149.2 ng/L (0-15) H 04/15/23 11:10 Delta Troponin T -38.8 ABS# (0-10) L 04/15/23 11:10 Total Protein 7.0 g/dL (6.6-8.7) 04/15/23 08:55 Albumin 3.7 g/dL (3.5-5.2) 04/15/23 08:55 Globulin 3.3 g/dL (1.3-4.6) 04/15/23 08:55 Procalcitonin 1.52 ng/mL (0-0.5) H 04/15/23 08:55 TSH 2.60 uIU/mL (0.27-4.20) 04/15/23 08:55 Discharge Plan Discharge Patient Disposition: Admitted As Inpatient Admit Provider: Marybeth Jameson Clinical Impression: Syncope, Closed rib fracture, Diabetic foot ulcer Condition: Stable Coding Level of Care Code ED Service Writer Advisor for [facility]
[2023-04-15 09:09] LABS: Basophils % 0.3 %; Eosinophils % 0.1 %; Hematocrit 39.9 % (42.0-52.0); Hemoglobin 12.3 g/dL (11.7-16.6); Lymphocytes # 0.6 10^3/uL (0.8-4.8); Lymphocytes % 5.4 %; Mean Corpuscular HGB Conc 30.8 g/dL (30.0-36.0); Mean Corpuscular Hemoglobin 25.5 pg (28.0-34.0); Mean Corpuscular Volume 82.8 fl (80-94); Mean Platelet Volume 9.2 fL (7.4-10.4); Monocytes # 0.4 10^3/uL (0.2-0.9); Monocytes % 3.8 %; Neutrophils # 9.48 10^3/uL (1.8-7.7); Neutrophils % 89.9 %; Nucleated Red Blood Cells % 0 %; Platelet Count 365 10^3/cmm (130-400); Red Blood Count 4.82 10^6/uL (4.1-5.3); White Blood Count 10.5 10^3/uL (4.0-10.0)
[2023-04-15 09:27] LABS: Alanine Aminotransferase 49 U/L (0-41); Albumin Level 3.7 g/dL (3.5-5.2); Alkaline Phosphatase 102 U/L (40-130); Aspartate Amino Transferase 298 U/L (0-40); Blood Urea Nitrogen 33 mg/dL (8-23); Calcium 10.1 mg/dL (8.5-10.5); Carbon Dioxide 25 mmol/L (22-29); Chloride 102 mmol/L (98-107); Globulin 3.3 g/dL (1.3-4.6); Glucose 167 mg/dL (65-115); Osmolality Calculated 303 mOsm/kg (285-295); Sodium 141 mmol/L (136-145); Total Bilirubin 0.7 mg/dL (0.15-1.2)
[2023-04-15 09:28] LABS: Anion Gap 18.4 (5-19); Potassium 4.4 mmol/L (3.5-5.1)
[2023-04-15 09:41] LABS: Troponin(5th) Baseline 188 ng/L (0-15)
[2023-04-15 09:42] LABS: Creatine Phosphokinase 18225 U/L (39-308)
--- NOTE | 2023-04-15 10:02 | CT_ITS ---
WS: [id number] CT HEAD TECHNIQUE: Noncontrast CT of the head obtained from the skullbase to the vertex. CLINICAL INFORMATION: frequent falls, weakness, closed head inj COMPARISON: CT 2019 DLP: 1124.[address] scans at [facility] use at least one of these dose optimization techniques: automated e xposure control; mA and/or kV adjustment per patient size (includes targeted exams where dose is matc hed to clinical indication); or iterative reconstruction. FINDINGS: No evidence of intracranial hemorrhage or mass effect. Ventricular system and basal cisterns are connell nt. Mild small vessel changes with moderate parenchymal volume loss. No extra-axial fluid collections . No evidence of mass or mass effect. Paranasal sinuses and mastoid air cells are well aerated. Small retention cyst or polyp RIGHT maxilla ry sinus. Normal visualized soft tissues. Normal posterior nasopharynx. Intracranial vascular calcifi cation. CT/CT head wo con* [id number] IMPRESSION: 1. No evidence of intracranial hemorrhage or mass effect. 2. Mild small vessel changes. Moderate parenchymal volume loss. 3. Intracranial vascular calcification. 4. No acute intracranial findings.
[2023-04-15 10:03] LABS: Lactic Sepsis W/Reflex 1.6 mmol/L (0.5-2.2)
[2023-04-15] MEDS: piperacillin-tazobactam 3.375 GM in sodium chloride 0.9% (plus) 50 ML IV ×2 (10:20→22:19)
--- NOTE | 2023-04-15 10:37 | ECG_ITS ---
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 Measurements Intervals [place] Rate: 74 P: 25 AL: 202 QRS: -62 QRSD: 173 T: 27 QT: 435 QTc: 485 Interpretive Statements SINUS RHYTHM RIGHT BUNDLE BRANCH BLOCK [120+ ms QRS DURATION, UPRIGHT V1, 40+ ms S IN I/aVL/V4/V5/V6] LEFT ANTERIOR FASCICULAR BLOCK [QRS AXIS <= -45, QR IN I, RS IN II] VOLTAGE CRITERIA FOR LVH [MEETS CRITERIA IN ONE OF: R(aVL), S(V1), R(V5), R(V5/V6)+S(V1)] POSSIBLE SEPTAL MYOCARDIAL INFARCTION , OF INDETERMINATE AGE [30 ms Q WAVE IN V1/V2] Compared to ECG 04/15/2023 08:29:35 First degree AV block no longer present Myocardial infarct finding still present Electronically Signed On 04-15-2023 21:28:11 CDT by Gissel Hussein M.D. [id number]
[2023-04-15] MEDS: amlodipine 10 mg Tablet PO (11:17)
[2023-04-15] MEDS: hyDRALAzine 20 mg/mL INJ 1 mL 10 MG IVP (11:18)
[2023-04-15 11:39] LABS: Troponin 5 2HR 149.2 ng/L (0-15)
--- NOTE | 2023-04-15 12:15 | P.HP_ITS ---
Providers/Chief Complaint Admitting Physician: Marybeth Jameson MD Primary Care Provider: Jero Juárez MD Chief Complaint: fall, rib pain History of Present Illness Preston Knowles is a 77 year old male presented to hospital with chief complaint of generalized weakness and fatigue. Patient is stating that he lives alone he manages himself and drives, he normally cooks for himself as well. Yesterday patient experienced 1 syncopal event in the bathroom and since then he has not been able to bear weight on his legs, he is feeling his legs are giving up on him, he has not noted stroke related changes, today he decided to come to the hospital for further evaluation. In the ER patient was diagnosed with rhabdomyolysis, IV fluids IMHS restarted, left foot heel ulcer noted on admission, Dr. Wright was consulted who did bedside debridement. Patient is not showing any signs of sepsis. Requested ESR CRP inflammatory markers and antibiotics. Review of Systems Narrative: Generalized fatigue headache Generalized weakness No urine incontinence No diarrhea No abdominal pain No chest pain No shortness of breath Nonfocal neuro exam No seizures No allergies Positive skin rash Low energy positive Medications/Allergies Home Medications Medication Instructions Recorded Confirmed Last Taken Type cholecalciferol (vitamin D3) 50 50 mcg PO DAILY 09/01/20 04/15/23 Unknown History mcg (2,000 unit) capsule (Vitamin D3) furosemide 40 mg tablet (Lasix) 40 mg PO DAILY 09/01/20 04/15/23 Unknown History gemfibrozil 600 mg tablet 600 mg PO BID 09/01/20 04/15/23 Unknown History insulin glargine 100 unit/mL (3 85 unit SUBCUT BID 09/01/20 04/15/23 Unknown History mL) subcutaneous pen (Lantus Solostar U-100 Insulin) insulin aspart U-100 100 unit/mL 30 unit SUBCUT TID 09/02/20 04/15/23 Unknown History (3 mL) subcutaneous pen omega-3 fatty acids 500 mg capsule 1,000 mg PO BID 09/02/20 04/15/23 Unknown History tamsulosin 0.4 mg capsule 0.4 mg PO BID #60 caps 09/05/20 04/15/23 Unknown Rx aspirin 81 mg tablet,delayed 81 mg PO DAILY 05/23/21 04/15/23 Unknown History release (Adult Low Dose Aspirin) finasteride 5 mg tablet 5 mg PO DAILY 04/15/23 04/15/23 Unknown History formoterol fumarate 20 mcg/2 mL 2 ml inhalation BID 04/15/23 04/15/23 Unknown History solution for nebulization hydrochlorothiazide 25 mg tablet 25 mg PO DAILY 04/15/23 04/15/23 Unknown History lisinopril 40 mg tablet 20 mg PO DAILY 04/15/23 04/15/23 Unknown History pantoprazole 40 mg tablet,delayed 40 mg PO DAILY 04/15/23 04/15/23 Unknown History release Allergies Allergy/AdvReac Type Severity Reaction Status Date / Time shellfish derived Allergy ADR-Gastrointestinal Verified 04/15/23 08:36 Upset PFSH Acute PFSH: Medical History Bifascicular block CKD stage 3 due to type 2 diabetes mellitus COPD (chronic obstructive pulmonary disease) Diabetes mellitus type 2 in obese Dyspnea on exertion HTN (hypertension) Surgical History H/O shoulder surgery Previous back surgery Family History Mother , Old age, at 94 No problems noted. Father , Old age in mid 80s No problems noted. Social History Smoking and tobacco status: former smoker Alcohol intake: former Substance/Drug Use: never Marital status: Vitals/I&O/Wt Last Vital Signs Temp 98.2 F 04/15/23 08:25 Pulse 75 04/15/23 11:26 Resp 21 H 04/15/23 11:26 BP 146/68 04/15/23 11:26 Pulse Ox 96 04/15/23 11:26 O2 Del Method Nasal Cannula 04/15/23 11:26 O2 Flow Rate 2 04/15/23 11:26 Weight last 48 hrs Weight 127.006 kg Physical Exam Narrative: Morbidly obese male Laying supine No active complaints NIH 0 Left foot diabetic ulcer with mild purulent base Venous stasis dermatitis 1+ edema of legs bilaterally S1, S2 Currently room Awake and alert Unkept appearance No audible stridor or wheezing Data 04/15/23 08:55 04/15/23 08:55 Micro: Microbiology 04/15/23 10:00 Blood Culture - Preliminary Blood SPECIMEN COLLECTED 04/15/23 10:10 Blood Culture - Preliminary Blood SPECIMEN COLLECTED A&P Assessment and plan (1) Diabetic ulcer of foot associated with diabetes mellitus due to underlying condition, with fat layer exposed: (2) HTN (hypertension): Qualifiers: Hypertension type: essential hypertension Qualified Code(s): I10 - Essential (primary) hypertension (3) Dyspnea on exertion: (4) CKD stage 3 due to type 2 diabetes mellitus: (5) Bifascicular block: (6) Benign prostatic hyperplasia: (7) Obesity (BMI 30.0-34.9): (8) Diabetes mellitus type 2 in obese: (9) Rhabdomyolysis: Plan Rhabdomyolysis Continue IV fluid at high rate Monitor output Generalized weakness and fatigue I do not appreciate any focal deficits NIH 0 Check TSH and B12 Diabetic foot ulcer Appreciate podiatry recommendations Continue antibiotics No symptoms of sepsis Check CRP and ESR Syncopal event 24 hours before arrival Check echo, check orthostatics Check A1c level Check carotid Doppler Requested PT Daily dressing change of diabetic foot ulcer CODE STATUS: Full code, Patient lives alone, Spoke with the ER physician and Dr. 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
--- NOTE | 2023-04-15 14:37 | ECG_ITS ---
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 Measurements Intervals [place] Rate: 77 P: 24 [place]: 199 QRS: -64 QRSD: 178 T: 36 QT: 413 QTc: 467 Interpretive Statements SINUS RHYTHM RIGHT BUNDLE BRANCH BLOCK [120+ ms QRS DURATION, UPRIGHT V1, 40+ ms S IN I/aVL/V4/V5/V6] LEFT ANTERIOR FASCICULAR BLOCK [QRS AXIS <= -45, QR IN I, RS IN II] VOLTAGE CRITERIA FOR LVH [MEETS CRITERIA IN ONE OF: R(aVL), S(V1), R(V5), R(V5/V6)+S(V1)] POSSIBLE SEPTAL MYOCARDIAL INFARCTION , OF INDETERMINATE AGE [30 ms Q WAVE IN V1/V2] Compared to ECG 04/15/2023 10:36:24 No significant changes Electronically Signed On 04-15-2023 21:24:37 CDT by Gissel Hussein M.D. [id number]
[2023-04-15] MEDS: sodium chloride 0.9% 1,000 ML 150 ML IV ×2 (15:01→22:20)
--- NOTE | 2023-04-15 15:28 | P.CONIM_ITS ---
Providers/Reason For Consult Consulting Physician/Specialty*: Coleman Rodriguez.P.M./podiatry Reason for Consult*: Left heel full-thickness ulceration Attending Physician: Marybeth Jameson MD Primary Care Provider: Jero Juárez MD History of Present Illness History of Present Illness Preston Knowles is a 77 year old male who presented to the emergency department today with chief complaint of rib pain. Patient lives at home alone and fell out of his chair causing the injury. He does have a history of diabetes that is uncontrolled. Patient was admitted for further work-up and evaluation. Upon evaluation patient was found to have full-thickness ulceration to the plantar aspect of the left heel. Patient is not established with any providers at this time for the heel. Podiatry was consulted to evaluate patient and provide further recommendations. Review of Systems General: Reports: 10 or more systems reviewed and unremarkable except in HPI and below Const: Denies: fever(s), chills, body aches or change in appetite Eyes: Denies: change in vision or blurry vision Card: Denies: chest pain, palpitations or irregular heart rhythm Resp: Denies: dyspnea GI: Denies: abdominal pain, nausea, vomiting or diarrhea Musc: Reports: joint stiffness Skin/Breast: Reports: non-healing lesions and lesions Neuro: Reports: numbness in extremities Medications/Allergies Home Medications Medication Instructions Recorded Confirmed Last Taken Type cholecalciferol (vitamin D3) 50 50 mcg PO DAILY 09/01/20 04/15/23 Unknown History mcg (2,000 unit) capsule (Vitamin D3) furosemide 40 mg tablet (Lasix) 40 mg PO DAILY 09/01/20 04/15/23 Unknown History gemfibrozil 600 mg tablet 600 mg PO BID 09/01/20 04/15/23 Unknown History insulin glargine 100 unit/mL (3 85 unit SUBCUT BID 09/01/20 04/15/23 Unknown History mL) subcutaneous pen (Lantus Solostar U-100 Insulin) insulin aspart U-100 100 unit/mL 30 unit SUBCUT TID 09/02/20 04/15/23 Unknown History (3 mL) subcutaneous pen omega-3 fatty acids 500 mg capsule 1,000 mg PO BID 09/02/20 04/15/23 Unknown History tamsulosin 0.4 mg capsule 0.4 mg PO BID #60 caps 09/05/20 04/15/23 Unknown Rx aspirin 81 mg tablet,delayed 81 mg PO DAILY 05/23/21 04/15/23 Unknown History release (Adult Low Dose Aspirin) finasteride 5 mg tablet 5 mg PO DAILY 04/15/23 04/15/23 Unknown History formoterol fumarate 20 mcg/2 mL 2 ml inhalation BID 04/15/23 04/15/23 Unknown History solution for nebulization hydrochlorothiazide 25 mg tablet 25 mg PO DAILY 04/15/23 04/15/23 Unknown History lisinopril 40 mg tablet 20 mg PO DAILY 04/15/23 04/15/23 Unknown History pantoprazole 40 mg tablet,delayed 40 mg PO DAILY 04/15/23 04/15/23 Unknown History release Allergies Allergy/AdvReac Type Severity Reaction Status Date / Time shellfish derived Allergy ADR-Gastrointestinal Verified 04/15/23 08:36 Upset Current Medications Generic Name Dose Route Start Last Admin Trade Name Freq PRN Reason Stop Dose Admin Sodium Chloride 1,000 mls @ 150 mls/hr 04/15/23 12:35 04/15/23 15:01 Sodium Chloride 0.9% IV 150 mls/hr .Q6H40M LESLIE Administration PFSH Acute 2 PFSH: Medical History Bifascicular block CKD stage 3 due to type 2 diabetes mellitus COPD (chronic obstructive pulmonary disease) Diabetes mellitus type 2 in obese Dyspnea on exertion HTN (hypertension) Surgical History H/O shoulder surgery Previous back surgery Family History Mother , Old age, at 94 No problems noted. Father , Old age in mid 80s No problems noted. Social History Smoking and tobacco status: former smoker Alcohol intake: former Substance/Drug Use: never Marital status: Vitals/I&O/Wt Last Vital Signs Temp 98.2 F 04/15/23 08:25 Pulse 75 04/15/23 11:26 Resp 21 H 04/15/23 11:26 BP 146/68 04/15/23 11:26 Pulse Ox 96 04/15/23 11:26 O2 Del Method Nasal Cannula 04/15/23 12:35 O2 Flow Rate 2 04/15/23 11:26 04/15/23 04/15/23 04/15/23 06:59 14:59 22:59 Intake Total 50 / 50 Balance 50 / 50 Weight last 48 hrs Weight 280 lb Physical Exam Narrative: BELOW IS A FOCUSED LOWER EXTREMITY EXAM GENERAL: A&O x 3 VASCULAR: DP/PT pulses palpable 2/4 with CFT intact, <3seconds to distal digits DERMATOLOGICAL: Full-thickness ulceration plantar aspect of left heel Wound #1 Location: Plantar lateral left heel Size: 2.8 x 0.8 x 0.5 cm Undermining: Negative Tracking: Negative Probe to bone: Negative Borders: Hyperkeratotic Base: 100% fibrotic Drainage: Scant purulence Malodor: Negative MUSCULOSKELETAL: Tenderness with palpation of periwound area and probing of wound base NEUROLOGICAL: Neurological sensation to the affected foot and ankle is present through L4-S1 dermatomes with no hyper/hypoesthesias, negative Tinel or Valleix's sign Data 04/15/23 08:55 04/15/23 08:55 Micro: Microbiology 04/15/23 10:00 Blood Culture - Preliminary Blood SPECIMEN COLLECTED 04/15/23 10:10 Blood Culture - Preliminary Blood SPECIMEN COLLECTED A&P Assessment and plan (1) Diabetic ulcer of foot associated with diabetes mellitus due to underlying condition, with fat layer exposed: (2) Diabetes mellitus type 2 in obese: Plan LABS AND CLINICAL INFO: WBC 10.5 T 98.2 RR 24 HR 74 BP 162/77 Wound culture: Pending PLAN: -Okay for diet from podiatry standpoint -Patient underwent excisional debridement of left foot wound at bedside after consent was obtained. See procedure note for details -Start broad-spectrum oral antibiotics. Recommend Augmentin 875-125 mg x 10 days -Daily wound care dressing change consisting of Aquacel Ag, 4 x 4 gauze, Kerlix and Jamie bandage. Order placed for daily dressing changes by nursing staff -Monitor cultures and adjust antibiotics accordingly -No surgical intervention per podiatry during this admission -PT consult placed to evaluate and dispensed cam boot to left lower extremity. Patient is able to be full weightbearing to left foot in cam boot. Cam boot is also to help elevate foot and keep it off of the bed -Patient will be okay to discharge from podiatry standpoint -Podiatry will round on patient tomorrow morning and provide further aurelia mmendations as needed. Coding Level of Care Code Acute Code for Chg Fwd Diagnoses Diabetic ulcer of foot associated with diabetes mellitus due to underlying condition, with fat layer exposed E08.621; L97.502 Diabetes mellitus type 2 in obese E11.69; E66.9
[2023-04-15 15:37] LABS: Troponin 5 6HR Delta -21.8 ng/L (0-12)
[2023-04-15 15:40] LABS: Troponin 5 6HR 166.2 ng/L (0-15)
[2023-04-15 15:52] LABS: Add Urine Microscopic? YES; Bilirubin Urine Neg (Negative); Blood Urine 3+ (Negative); Glucose Urine UA Norm (Normal); Ketones Urine Negative (Negative); Leukocyte Esterase Urine Trace (Negative); Nitrate Urine Negative (Negative); Protein Urine 3+ (Negative); Specific Gravity, Urine 1.025 (1.005-1.030); Urine Appearance Cloudy (CLEAR); Urine Color Yellow (Yellow); Urobilinogen Urine Norm (Negative); pH Urine 5 (5-7)
[2023-04-15 15:54] LABS: Bacteria Urine 1+ /hpf; WBC Urine 0-4 /hpf (0-5)
[2023-04-15 15:55] LABS: Mucus Urine TRACE /hpf
[2023-04-15 15:55] LABS: Estmated Average Glucose 189; Hemoglobin A1C 8.2 % (4.0-6.0)
[2023-04-15 15:56] LABS: Add Urine Culture? Yes; Amorphous Sediment Urine 2+ /hpf
[2023-04-15 16:11] LABS: D Dimer >= 20.00 ug/mIFEU (0-0.59)
--- NOTE | 2023-04-15 16:53 | PM.ACPR ---
Procedure/Consent Procedure Narrative: PROCEDURE: Left heel excisional wound debridement Location: Plantar lateral left heel Local Anesthesia: None needed due to diabetic peripheral neuropathy Consent: Left heel excisional wound debridement Sterile Prep: Alcohol Details: Excisional debridement was carried down to the level of subcutaneous tissue with dermal curette removing fibrotic tissue and leaving a healthy granular base. Hyperkeratotic borders of wound were also pared down using a dermal curette. Predebridement measurements: 2.8 x 0.8 x 0.5 cm Postdebridement measurements: 3.0 x 1.0 x 0.6 cm Hemostasis: Achieved via manual compression Dressing: Maxorb AG, 4 x 4 gauze, Kerlix, Jamie Estimated Blood Loss: Less than 2 cc Offloading: Cam boot Wound culture taken and sent to micro
[2023-04-15 16:58] LABS: Glucose Point of Care 222 mg/dL (70-110)
[2023-04-15] MEDS: gemfibrozil 600 mg Tablet PO (17:56)
[2023-04-15] MEDS: tamsulosin 0.4 mg Capsule PO (17:56)
--- NOTE | 2023-04-15 19:02 | USCV_ITS ---
Preston Knowles Age: 77 Gender: M : 1945 Exam Date: 04/15/2023 19:58 Ordering Phys: Marybeth Jameson MD Technologist: KEERTHI [place] [facility] [place]ication: Chronic BLE edema and erythema. O2 dependent 2L. No history of DVT per patient. HISTORY: Chronic BLE edema and erythema. O2 dependent 2L. No history of DVT per patient. PROCEDURES: Venous duplex imaging was performed in bilateral lower extremities. The following venous structures were evaluated: common femoral vein, profunda vein, proximal portion of the greater saphenous vein, superficial femoral vein, and the popliteal vein. In addition, the posterior tibial and peroneal trunk were evaluated. FINDINGS: Normal 2-D Doppler and augmentation and compressibility throughout the lower extremity venous structures. Additional imaging through the proximal calf veins also reveals no thrombus. Limited evaluation of the greater saphenous vein is patent with no thrombus. CONCLUSIONS No DVT bilateral lower extremities. Dr. Tonya Martinez DO (Electronically Signed) Final Date: 16 April 2023 12:27 S
--- NOTE | 2023-04-15 19:05 | USCV_ITS ---
Preston Knowles Age: 77 Gender: M : 1945 Exam Date: 04/15/2023 20:38 Ordering Phys: Marybeth Jameson MD Technologist: KEERTHI Exam Location: [facility] – [place] Indication: rib pain c/o GLF last night, DM, chronic BILAT LE edema, O2 dependent 2L. BP: 135 / 56 HR: 75 Rhythm: Sinus Technical Quality: Adequate with [employer] MEASUREMENTS (Male / Female) Normal Values 2D ECHO LV Diastolic Diameter PLAX 4.8 cm 4.2 - 5.9 / 3.9 - 5.3 cm LV Systolic Diameter PLAX 3.1 cm IVS Diastolic Thickness 1.6 cm 0.6 - 1.0 / 0.6 - 0.9 cm IVS Systolic Thickness 2.2 cm LVPW Diastolic Thickness 1.7 cm 0.6 - 1.0 / 0.6 - 0.9 cm LVPW Systolic Thickness 1.4 cm LVOT Diameter 1.9 cm LV Ejection Fraction 2D Teich 65.9 % LV Ejection Fraction MOD 2C 59.2 % LV Ejection Fraction 2C AL 60.9 % LA Diameter 4.3 cm LA Width 5.5 cm LA Height 7.7 cm RA Width 3.5 cm RA Height 4.1 cm Aorta at Sinotubular Diameter 3.0 cm IVC Diameter 2.0 cm M-MODE Aortic Annulus Diameter 3.9 cm LA Ao Ratio MM 1.1 MV E Point Septal Separation 0.7 cm DOPPLER AV Peak Velocity 289.3 cm/s LVOT Peak Velocity 102.0 cm/s AV Area Cont Eq vti 1.1 cm squared AV Area Cont Eq pk 1.0 cm squared MV Area PHT 2.9 cm squared Mitral E to A Ratio 0.7 MV E' Velocity 41.0 cm/s Mitral E to MV E' Ratio 8.2 Mitral E to LV E' Lateral Ratio 7.9 Mitral E to LV E' Septal Ratio 8.6 TV Peak E Velocity 54.0 cm/s PV Peak Velocity 134.0 cm/s RV Acceleration Time 0.1 s RV Ejection Time 0.4 s RV AcT/ET 0.3 FINDINGS Left Ventricle Left ventricle is normal in size. LV systolic function is normal with EF 55 to 60%. No regional wall motion abnormalities are seen. Grade 1 diastolic dysfunction. Right Ventricle Normal in size and function Right Atrium Normal in size Left Atrium Dilated Mitral Valve Mild mitral annular calcification is seen. Mild mitral regurgitation. Aortic Valve Aortic valve is thickened and calcified. Mild to moderate aortic stenosis with JAIRO of 1.12cm2 and mean gradient across aortic valve of 15mmHg. Tricuspid Valve Mild tricuspid regurgitation. Insufficient TR jet to calculate RVSP Pulmonic Valve Not well-visualized. Pericardium Normal Aorta Normal in size IVC Appears to be normal CONCLUSIONS LV systolic function is normal with EF 55 to 60%. Grade 1 diastolic dysfunction. Left atrial dilation Mild mitral regurgitation Mild to moderate aortic stenosis Mild tricuspid regurgitation Angel Beatty MD (Electronically Signed) Final Date: 16 April 2023 09:44 S
[2023-04-15 19:57] LABS: Procalcitonin 1.52 ng/mL (0-0.5)
[2023-04-15] MEDS: insulin glargine 100 units/1 mL 30 UNIT SUBCUT (22:19)
[2023-04-15] MEDS: enoxaparin 150 mg/mL Syringe 130 MG SUBCUT (22:20)
[2023-04-15 22:31] LABS: Glucose Point of Care 241 mg/dL (70-110)
[2023-04-16] VITALS (9 sets, daily range): BP systolic 114–158; BP diastolic 58–86; PULSE 66–74; RESP 17–21; TEMP 36.6–37; O2SAT 95–97
[2023-04-16] MEDS: sodium chloride 0.9% 1,000 ML 150 ML IV ×2 (03:42→11:44)
[2023-04-16] MEDS: piperacillin-tazobactam 3.375 GM in sodium chloride 0.9% (plus) 50 ML IV ×3 (03:42→20:14)
[2023-04-16] MEDS: perflutren protein-a microsphr 0.22 mg/mL SDV 3 mL IV (05:36)
[2023-04-16 06:47] LABS: Basophils # 0.1 10^3/uL (0.0-0.1); Basophils % 0.6 %; Eosinophils # 0.2 10^3/uL (0.0-0.8); Eosinophils % 2.5 %; Hematocrit 33.1 % (42.0-52.0); Hemoglobin 9.9 g/dL (11.7-16.6); Lymphocytes # 0.9 10^3/uL (0.8-4.8); Lymphocytes % 9.4 %; Mean Corpuscular HGB Conc 29.9 g/dL (30.0-36.0); Mean Corpuscular Hemoglobin 26.1 pg (28.0-34.0); Mean Corpuscular Volume 87.1 fl (80-94); Mean Platelet Volume 8.7 fL (7.4-10.4); Monocytes # 0.3 10^3/uL (0.2-0.9); Monocytes % 3.5 %; Neutrophils # 7.55 10^3/uL (1.8-7.7); Neutrophils % 83.4 %; Nucleated Red Blood Cells % 0 %; Platelet Count 247 10^3/cmm (130-400); Red Cell Distribution Width 15.6 % (12.1-15.1); White Blood Count 9.1 10^3/uL (4.0-10.0)
[2023-04-16 07:50] LABS: Anion Gap 14.3 (5-19); Blood Urea Nitrogen 40 mg/dL (8-23); C Reactive Protein 183.4 mg/L (0.0-4.9); Calcium 8.6 mg/dL (8.5-10.5); Carbon Dioxide 26 mmol/L (22-29); Chloride 104 mmol/L (98-107); Glucose 195 mg/dL (65-115); Magnesium 2.2 mg/dL (1.7-2.3); Osmolality Calculated 305 mOsm/kg (285-295); Potassium 4.3 mmol/L (3.5-5.1); Sodium 140 mmol/L (136-145)
[2023-04-16 08:29] LABS: Creatine Phosphokinase 6560 U/L (39-308)
[2023-04-16] MEDS: pantoprazole DR 40 mg Tablet PO (10:14)
[2023-04-16] MEDS: doxycycline 100 mg Tablet PO ×2 (10:14→17:07)
[2023-04-16] MEDS: enoxaparin 150 mg/mL Syringe 130 MG SUBCUT ×2 (10:14→20:15)
[2023-04-16] MEDS: gemfibrozil 600 mg Tablet PO (10:14)
[2023-04-16] MEDS: finasteride 5 mg Tablet PO (10:14)
[2023-04-16] MEDS: aspirin 81 mg EC Tablet PO (10:14)
[2023-04-16] MEDS: clopidogrel 300 mg Tablet PO (10:14)
[2023-04-16] MEDS: tamsulosin 0.4 mg Capsule PO ×2 (10:14→17:07)
--- NOTE | 2023-04-16 10:54 | PM.PN ---
Subjective Subjective: Patient seen at bedside this morning. Resting comfortably. Denies any overnight events. Denies any constitutional symptoms. Vitals/I&O/Wt Last Vital Signs Temp 98.6 F 04/16/23 07:26 Pulse 66 04/16/23 08:03 Resp 18 04/16/23 08:03 BP 119/62 04/16/23 07:26 Pulse Ox 96 04/16/23 08:03 O2 Del Method Nasal Cannula 04/16/23 08:03 O2 Flow Rate 3 04/16/23 08:03 04/15/23 04/16/23 04/16/23 22:59 06:59 14:59 Intake Total 1650 / 1650 855 / 2505 1410 / 1410 Output Total 200 / 200 200 / 400 Balance 1450 / 1450 655 / 2105 1410 / 1410 Weight last 48 hrs Weight 280 lb Physical Exam Narrative: BELOW IS A FOCUSED LOWER EXTREMITY EXAM GENERAL: A&O x 3 VASCULAR: DP/PT pulses palpable 2/4 with CFT intact, <3seconds to distal digits DERMATOLOGICAL: Left foot dressing clean, dry, intact with no strikethrough noted. MUSCULOSKELETAL: Tenderness with palpation of periwound area and probing of wound base NEUROLOGICAL: Neurological sensation to the affected foot and ankle is present through L4-S1 dermatomes with no hyper/hypoesthesias, negative Tinel or Valleix's sign Data 04/16/23 06:37 04/16/23 06:37 Micro: Microbiology 04/15/23 10:10 Blood Culture - Preliminary Blood NEGATIVE TO DATE 04/15/23 10:00 Blood Culture - Preliminary Blood NEGATIVE TO DATE A&P Assessment and plan (1) Diabetic ulcer of foot associated with diabetes mellitus due to underlying condition, with fat layer exposed: (2) Diabetes mellitus type 2 in obese: Plan LABS AND CLINICAL INFO: WBC 9.1 VSS Wound culture: Pending PLAN: -Okay for diet from podiatry standpoint -Start broad-spectrum oral antibiotics. Recommend Augmentin 875-125 mg x 10 days -Daily wound care dressing change consisting of Aquacel Ag, 4 x 4 gauze, Kerlix and Jamie bandage. Order placed for daily dressing changes by nursing staff -Monitor cultures and adjust antibiotics accordingly -No surgical intervention per podiatry during this admission -Weightbearing as tolerated to left foot in cam boot. -Patient okay to discharge from podiatry standpoint with follow-up in outpatient setting within 1 week of discharge from hospital -Podiatry will sign off. Please reconsult if needed. Attestations Medical Necessity Statement*: See above Coding Level of Care Code Acute Code for Chg Fwd Diagnoses Diabetic ulcer of foot associated with diabetes mellitus due to underlying condition, with fat layer exposed E08.621; L97.502 Diabetes mellitus type 2 in obese E11.69; E66.9
[2023-04-16 12:16] LABS: Glucose Point of Care 275 mg/dL (70-110)
--- NOTE | 2023-04-16 13:22 | PM.PN ---
Subjective Subjective: No fever, no worsening leukocytosis Secondary to bump in troponin he was started on ACS protocol No active chest pain or shortness of breath D-dimer significantly high requested venous Doppler and CTA chest to rule out PE Echo shows moderate aortic stenosis other than grade 1 diastolic dysfunction Vitals/I&O/Wt Last Vital Signs Temp 98.6 F 04/16/23 11:22 Pulse 74 04/16/23 11:22 Resp 20 H 04/16/23 11:22 BP 143/63 04/16/23 11:22 Pulse Ox 96 04/16/23 11:22 O2 Del Method Nasal Cannula 04/16/23 11:22 O2 Flow Rate 3 04/16/23 08:03 04/15/23 04/16/23 04/16/23 22:59 06:59 14:59 Intake Total 1650 / 1650 855 / 2505 1770 / 1770 Output Total 200 / 200 200 / 400 Balance 1450 / 1450 655 / 2105 1770 / 1770 Weight last 48 hrs Weight 127.006 kg Physical Exam Narrative: Patient clinically does not look fluid overloaded Awake and alert Currently on 2 L nasal cannula, patient sitting at home he uses 2 to 3 L Abdomen soft Lower extremity no significant edema Nonfocal neuro exam GCS 15 Pleasant and cooperative Hemodynamically stable S1, S2 Data 04/16/23 06:37 04/16/23 06:37 Micro: Microbiology 04/15/23 15:18 Urine Culture - Preliminary Urine,Clean Catch 04/15/23 10:10 Blood Culture - Preliminary Blood NEGATIVE TO DATE 04/15/23 10:00 Blood Culture - Preliminary Blood NEGATIVE TO DATE A&P Assessment and plan (1) Pneumonia: (2) Rhabdomyolysis: (3) Diabetic ulcer of foot associated with diabetes mellitus due to underlying condition, with fat layer exposed: (4) HTN (hypertension): Qualifiers: Hypertension type: essential hypertension Qualified Code(s): I10 - Essential (primary) hypertension (5) Dyspnea on exertion: (6) CKD stage 3 due to type 2 diabetes mellitus: (7) Bifascicular block: (8) Benign prostatic hyperplasia: (9) Obesity (BMI 30.0-34.9): (10) Acute respiratory failure with hypoxia: (11) COPD (chronic obstructive pulmonary disease): (12) Diabetes mellitus type 2 in obese: (13) Syncope: Plan Syncope Noted aortic stenosis Grade 1 diastolic function Rhabdomyolysis Decrease IV fluids to 75 mill per hour CPK trending down Acute on chronic kidney disease: Creatinine trending down Non-STEMI: Patient is not ischemic chest pain, EKG unremarkable we will request Lexiscan stress test tomorrow morning Started ACS protocol Type II MA? High D-dimer: Patient is hypoxic Patient uses 2 to 3 L of oxygen at baseline at home Requested CTA chest rule out PE Venous Doppler did not show any signs of DVT Right foot ulcer status post bedside debridement by Dr. Wright Continue doxycycline and Zosyn Community-acquired pneumonia Continue doxycycline and Zosyn at this point Cytosis trending down, afebrile Generalized weakness: We will need SNF placement Lives alone Full code Cardiac consistent carb diet Attestations Medical Necessity Statement*: Will need SNF placement Diagnoses Pneumonia J18.9 Rhabdomyolysis M62.82 Diabetic ulcer of foot associated with diabetes mellitus due to underlying condition, with fat layer exposed E08.621; L97.502 HTN (hypertension) I10 Hypertension type: essential hypertension Dyspnea on exertion R06.00 CKD stage 3 due to type 2 diabetes mellitus E11.22; N18.30 Bifascicular block I45.2 Benign prostatic hyperplasia N40.0 Obesity (BMI 30.0-34.9) E66.9 Acute respiratory failure with hypoxia J96.01 COPD (chronic obstructive pulmonary disease) J44.9 Diabetes mellitus type 2 in obese E11.69; E66.9 Syncope R55
[2023-04-16 16:31] LABS: Glucose Point of Care 332 mg/dL (70-110)
[2023-04-16] MEDS: sodium chloride 0.9% 1,000 ML 75 ML IV (20:15)
[2023-04-16 20:21] LABS: Glucose Point of Care 420 mg/dL (70-110)
[2023-04-16] MEDS: insulin lispro 100 unit/1 mL SUBCUT (20:54)
[2023-04-16] MEDS: insulin glargine 100 units/1 mL 30 UNIT SUBCUT (20:54)
[2023-04-17] MEDS: piperacillin-tazobactam 3.375 GM in sodium chloride 0.9% (plus) 50 ML IV (04:00)
[2023-04-17 04:57] VITALS: BP 129/67; PULSE 67; RESP 17; TEMP 36.4; O2SAT 92
--- NOTE | 2023-04-17 07:27 | SUR.PREOP ---
STRESS NOTE/CANCEL Patient refused stress testing this morning. Floor aware. Test cancelled at patient request.
[2023-04-17 07:53] LABS: Glucose Point of Care 193 mg/dL (70-110)
[2023-04-17 07:56] VITALS: BP 137/61; PULSE 67; RESP 19; TEMP 36.3; O2SAT 95
[2023-04-17 07:58] VITALS: PULSE 63; RESP 16; O2SAT 97
[2023-04-17 08:04] LABS: Basophils % 0.6 %; Eosinophils # 0.2 10^3/uL (0.0-0.8); Eosinophils % 3.6 %; Hematocrit 32.4 % (42.0-52.0); Hemoglobin 9.3 g/dL (11.7-16.6); Lymphocytes # 0.6 10^3/uL (0.8-4.8); Lymphocytes % 9.5 %; Mean Corpuscular HGB Conc 28.7 g/dL (30.0-36.0); Mean Corpuscular Hemoglobin 25.1 pg (28.0-34.0); Mean Corpuscular Volume 87.6 fl (80-94); Mean Platelet Volume 8.7 fL (7.4-10.4); Monocytes # 0.2 10^3/uL (0.2-0.9); Monocytes % 3.4 %; Neutrophils # 5.58 10^3/uL (1.8-7.7); Neutrophils % 82.5 %; Nucleated Red Blood Cells % 0 %; Platelet Count 236 10^3/cmm (130-400); Red Cell Distribution Width 15.6 % (12.1-15.1); White Blood Count 6.8 10^3/uL (4.0-10.0)
[2023-04-17 08:49] LABS: Blood Urea Nitrogen 43 mg/dL (8-23); Calcium 8.8 mg/dL (8.5-10.5); Carbon Dioxide 24 mmol/L (22-29); Chloride 107 mmol/L (98-107); Glucose 175 mg/dL (65-115); Osmolality Calculated 307 mOsm/kg (285-295); Sodium 141 mmol/L (136-145)
[2023-04-17 08:52] LABS: Anion Gap 14.7 (5-19); Potassium 4.7 mmol/L (3.5-5.1)
[2023-04-17] MEDS: enoxaparin 150 mg/mL Syringe 130 MG SUBCUT (08:53)
[2023-04-17] MEDS: insulin lispro 100 unit/1 mL SUBCUT ×2 (08:53→12:37)
[2023-04-17] MEDS: doxycycline 100 mg Tablet PO (08:54)
[2023-04-17] MEDS: pantoprazole DR 40 mg Tablet PO (08:54)
[2023-04-17] MEDS: tamsulosin 0.4 mg Capsule PO (08:55)
[2023-04-17] MEDS: aspirin 81 mg EC Tablet PO (08:55)
[2023-04-17] MEDS: clopidogrel 75 mg Tablet PO (08:55)
[2023-04-17] MEDS: finasteride 5 mg Tablet PO (08:55)
[2023-04-17 09:35] LABS: Creatine Phosphokinase 2344 U/L (39-308)
--- NOTE | 2023-04-17 10:36 | P.DS_ITS ---
Discharge Providers Date of Admission: 04/15/23 12:35 Date of Discharge: April 17, 2023 Attending Provider at Admission: Marybeth Jameson MD Attending Provider at Discharge: Marybeth Jameson MD Primary Care Provider: Jero Juárez MD Diagnoses at Discharge Discharge Diagnosis (1) Pneumonia: Status: Acute (2) Rhabdomyolysis: Status: Acute (3) Diabetic ulcer of foot associated with diabetes mellitus due to underlying condition, with fat layer exposed: Status: Acute (4) HTN (hypertension): Status: Acute Qualifiers: Hypertension type: essential hypertension Qualified Code(s): I10 - Essential (primary) hypertension (5) Dyspnea on exertion: Status: Acute (6) CKD stage 3 due to type 2 diabetes mellitus: Status: Acute (7) Bifascicular block: Status: Acute (8) Benign prostatic hyperplasia: Status: Acute (9) Obesity (BMI 30.0-34.9): Status: Acute (10) Acute respiratory failure with hypoxia: Status: Acute (11) COPD (chronic obstructive pulmonary disease): Status: Acute (12) Diabetes mellitus type 2 in obese: Status: Acute (13) Syncope: Status: Acute Reason for Visit Reason for Visit: fall, rib pain Hospital Course Hospital Course 77-year-old male who has history of diabetes, chronic hypoxia uses 3 L of oxygen, hypertension, BPH, presented to hospital with generalized weakness and fatigue, he lives alone, patient has diabetes, questionable compliance with his medications, patient presented after sustaining a fall at home stating that he has no strength in his legs, no signs of cauda equina, no signs of stroke, CT head unremarkable, his baseline troponin was about 100 he was started on ACS protocol however echo did not show any wall motion abnormality, stress test was requested because patient never complained of chest pain EKG was unremarkable, D-dimer was extremely high he was put on therapeutic Lovenox, patient refused stress test and CTA chest rule out PE attributing anxiety to claustrophobia, he is unsafe to return home, prison has been arranged, I will discharge him on Eliquis 5 mg twice daily regimen, patient also has LYNDSEY creatinine 1.4 which has improved from 1.6. He suffered from rhabdomyolysis from a fall at home his CPK is trending down adequate urine output, CPK 2300 down from 18,000 Please note at the time of admission left heel diabetic ulcer was noted which was debrided by Dr. Wright at the bedside gram-negative fazal noted from the culture, he was discharged to the prison with Augmentin and doxycycline 10-day regimen Daily wound care dressing change consisting of Aquacel Ag, 4 x 4 gauze, Kerlix and Jamie bandage.? 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 Physical Exam Narrative: Patient clinical ly does not look f luid overloaded Aw yaneth and alert Curr ently on 2 L nasal cannula, Abdomen soft Lower extremi ty no significant edema Nonfocal aldo ro exam GCS 15 Ple asant and cooperat tiffany Hemodynamicall y stable S1, S2 Discharge Data Studies Completed and Pending Completed Studies During Hospitalization Category Date Time Status CT head wo con* [id number] Stat Cat Scan 04/15/23 10:02 Completed XR ribs RT mn 3V w CXR1V [id number] Stat Exams 04/15/23 08:33 [place] [id number] Routine Ultrasound 04/15/23 19:02 Completed CV. echo wo/w contrast [id number] Routine Ultrasound 04/15/23 19:05 Completed Pending at discharge Category Date Time Status CT angio chest PE protcl [id number] Routine Cat Scan 04/17/23 08:00 Ordered Sestamibi Stress Test Request Routine Exams 04/16/23 13:28 Ordered Blood Culture Stat Lab 04/15/23 10:00 Results SARS Covid-2 Antigen Routine Lab 04/17/23 10:17 Uncollected Sputum Culture and Gram Stain Stat Lab 04/15/23 10:15 Uncollected Wound Culture Routine Lab 04/15/23 16:27 Results Radiology Impressions Ribs X-Ray 04/15/23 08:33 IMPRESSION: 1. Mildly displaced bilateral 7th rib fractures. 2. Asymmetric right upper lung patchy opacification is nonspecific but may represent contusion in the setting of trauma. Head CT 04/15/23 10:02 IMPRESSION: 1. No evidence of intracranial hemorrhage or mass effect. 2. Mild small vessel changes. Moderate parenchymal volume loss. 3. Intracranial vascular calcification. 4. No acute intracranial findings. Laboratory Results WBC 6.8 10^3/uL (4.0-10.0) 04/17/23 07:40 RBC 3.70 10^6/uL (4.1-5.3) L 04/17/23 07:40 Hgb 9.3 g/dL (11.7-16.6) L 04/17/23 07:40 Hct 32.4 % (42.0-52.0) L 04/17/23 07:40 MCV 87.6 fl (80-94) 04/17/23 07:40 MCH 25.1 pg (28.0-34.0) L 04/17/23 07:40 MCHC 28.7 g/dL (30.0-36.0) L 04/17/23 07:40 RDW 15.6 % (12.1-15.1) H 04/17/23 07:40 Plt Count 236 10^3/cmm (130-400) 04/17/23 07:40 MPV 8.7 fL (7.4-10.4) 04/17/23 07:40 Neut % (Auto) 82.5 % 04/17/23 07:40 Lymph % (Auto) 9.5 % 04/17/23 07:40 [place] % (Auto) 3.4 % 04/17/23 07:40 Eos % (Auto) 3.6 % 04/17/23 07:40 Baso % (Auto) 0.6 % 04/17/23 07:40 Neut # (Auto) 5.58 10^3/uL (1.8-7.7) 04/17/23 07:40 Lymph # (Auto) 0.6 10^3/uL (0.8-4.8) L 04/17/23 07:40 [place] # (Auto) 0.2 10^3/uL (0.2-0.9) 04/17/23 07:40 Eos # (Auto) 0.2 10^3/uL (0.0-0.8) 04/17/23 07:40 Baso # (Auto) 0.0 10^3/uL (0.0-0.1) 04/17/23 07:40 Nucleated RBC % (auto) 0 % 04/17/23 07:40 Nucleated RBCs # 0.0 /100WBC 04/17/23 07:40 D-Dimer >= 20.00 ug/mIFEU (0-0.59) H 04/15/23 08:55 Sodium 141 mmol/L (136-145) 04/17/23 07:40 Potassium 4.7 mmol/L (3.5-5.1) 04/17/23 07:40 Chloride 107 mmol/L (98-107) 04/17/23 07:40 Carbon Dioxide 24 mmol/L (22-29) 04/17/23 07:40 Anion Gap 14.7 (5-19) 04/17/23 07:40 BUN 43 mg/dL (8-23) H 04/17/23 07:40 Creatinine 1.4 mg/dL (0.7-1.2) H 04/17/23 07:40 GFR Calculation Not Reportable 04/17/23 07:40 Glucose 175 mg/dL (65-115) H 04/17/23 07:40 POC Glucose 193 mg/dL (70-110) H 04/17/23 07:49 Estimat Average Glucose 189 04/15/23 08:55 Hemoglobin A1c 8.2 % (4.0-6.0) H 04/15/23 08:55 Calculated Osmolality 307 mOsm/kg (285-295) H 04/17/23 07:40 Lactic Acid 1.6 mmol/L (0.5-2.2) 04/15/23 08:55 Calcium 8.8 mg/dL (8.5-10.5) 04/17/23 07:40 Magnesium 2.2 mg/dL (1.7-2.3) 04/16/23 06:37 Total Bilirubin 0.7 mg/dL (0.15-1.2) 04/15/23 08:55 AST 298 U/L (0-40) H 04/15/23 08:55 ALT 49 U/L (0-41) H 04/15/23 08:55 Alkaline Phosphatase 102 U/L (40-130) 04/15/23 08:55 Creatine Kinase 2344 U/L (39-308) H* 04/17/23 07:40 Troponin T Baseline 188 ng/L (0-15) H* 04/15/23 08:55 Troponin T 120 Minute 149.2 ng/L (0-15) H 04/15/23 11:10 Delta Troponin T -38.8 ABS# (0-10) L 04/15/23 11:10 Troponin T Hi Sens 6Hr 166.2 ng/L (0-15) H 04/15/23 14:58 Troponin T Hi Sens 6Hr Delta -21.8 ng/L (0-12) L 04/15/23 14:58 C-Reactive Protein 183.4 mg/L (0.0-4.9) H 04/16/23 06:37 Total Protein 7.0 g/dL (6.6-8.7) 04/15/23 08:55 Albumin 3.7 g/dL (3.5-5.2) 04/15/23 08:55 Globulin 3.3 g/dL (1.3-4.6) 04/15/23 08:55 Procalcitonin 1.52 ng/mL (0-0.5) H 04/15/23 08:55 TSH 2.60 uIU/mL (0.27-4.20) 04/15/23 08:55 Urine Color Yellow (Yellow) 04/15/23 15:18 Urine Appearance Cloudy (CLEAR) A 04/15/23 15:18 Urine pH 5 (5-7) 04/15/23 15:18 Ur Specific [place] 1.025 (1.005-1.030) 04/15/23 15:18 Urine Protein 3+ (Negative) H 04/15/23 15:18 Urine Glucose (UA) Norm (Normal) 04/15/23 15:18 Urine Ketones Negative (Negative) 04/15/23 15:18 Urine Blood 3+ (Negative) H 04/15/23 15:18 Urine Nitrate Negative (Negative) 04/15/23 15:18 Urine Bilirubin Neg (Negative) 04/15/23 15:18 Urine Urobilinogen Norm mg/dL (Negative) 04/15/23 15:18 Ur Leukocyte Esterase Trace (Negative) H 04/15/23 15:18 Urine RBC 5-10 /hpf (0-2) H 04/15/23 15:18 Urine WBC 0-4 /hpf (0-5) H 04/15/23 15:18 Ur Squamous Epith Cells 5-10 /hpf (0-5) H 04/15/23 15:18 Amorphous Sediment 2+ /hpf 04/15/23 15:18 Urine Bacteria 1+ /hpf (NONE) H 04/15/23 15:18 Coarse Granular Casts 10-15 /lpf H 04/15/23 15:18 Urine Mucus Trace /hpf 04/15/23 15:18 Vitals Last Vital Signs Temp 97.3 F L 04/17/23 07:56 Pulse 63 04/17/23 07:58 Resp 16 04/17/23 07:58 BP 137/61 04/17/23 07:56 Pulse Ox 97 04/17/23 07:58 O2 Del Method Nasal Cannula 04/17/23 07:58 O2 Flow Rate 3 04/17/23 07:58 Discharge Plan Discharge Patient Disposition: Xfer SNF Condition: Stable Prescriptions: New Eliquis 5 mg tablet 5 mg PO BID Qty: 120 0RF insulin glargine [Lantus Solostar U-100 Insulin] 100 unit/mL (3 mL) insulin pen 60 unit SUBCUT QPM Qty: 15 0RF doxycycline monohydrate 100 mg Tablet 100 mg PO BID Qty: 20 0RF clopidogrel 75 mg Tablet 75 mg PO DAILY Qty: 90 0RF amoxicillin-pot clavulanate 875-125 mg tablet 1 tab PO BID Qty: 20 0RF potassium chloride 10 mEq tablet extended release 10 meq PO DAILY Qty: 20 0RF Rx Instructions: Only take when you are taking Lasix Continued aspirin [Adult Low Dose Aspirin] 81 mg tablet,delayed release (DR/EC) 81 mg PO DAILY cholecalciferol (vitamin D3) [Vitamin D3] 50 mcg (2,000 unit) Capsule 50 mcg PO DAILY insulin aspart U-100 100 unit/mL (3 mL) Insulin Pen 30 unit SUBCUT TID Rx Instructions: states it is omega-3 fatty acids 500 mg Capsule 1,000 mg PO BID tamsulosin 0.4 mg Capsule 0.4 mg PO BID Qty: 60 0RF pantoprazole 40 mg Tablet,Delayed Release (Dr/Ec) 40 mg PO DAILY lisinopril 40 mg Tablet 20 mg PO DAILY finasteride 5 mg Tablet 5 mg PO DAILY formoterol fumarate 20 mcg/2 mL Solution For Nebulization 2 ml INHALATION BID Lasix 40 mg Tablet 40 mg PO DAILY Qty: 60 0RF Discontinued insulin glargine [Lantus Solostar U-100 Insulin] 100 unit/mL (3 mL) Insulin Pen 85 unit SUBCUT BID gemfibrozil 600 mg Tablet 600 mg PO BID hydrochlorothiazide 25 mg Tablet 25 mg PO DAILY Discharge Orders: Discharge Order (Routine); Ordered 04/17/23 Ordered By: Marybeth Jameson Referrals: [facility] [Outside] Jero Juárez MD [Primary Care Provider] - Patient Instructions: Opioid Safety Discharge Attestations Time Spent in Discharge Care*: greater than 30 min Quality Metrics Clinical Quality Measures [ No reported AMI, CVA or VTE this stay] Coding Level of Care Code Acute Code for Chg Fwd Diagnoses Pneumonia J18.9 Rhabdomyolysis M62.82 Diabetic ulcer of foot associated with diabetes mellitus due to underlying condition, with fat layer exposed E08.621; L97.502 HTN (hypertension) I10 Hypertension type: essential hypertension Dyspnea on exertion R06.00 CKD stage 3 due to type 2 diabetes mellitus E11.22; N18.30 Bifascicular block I45.2 Benign prostatic hyperplasia N40.0 Obesity (BMI 30.0-34.9) E66.9 Acute respiratory failure with hypoxia J96.01 COPD (chronic obstructive pulmonary disease) J44.9 Diabetes mellitus type 2 in obese E11.69; E66.9 Syncope R55
[2023-04-17 11:34] LABS: Glucose Point of Care 180 mg/dL (70-110)
[2023-04-17 11:50] VITALS: BP 149/65; PULSE 63; RESP 19; TEMP 36.4; O2SAT 96
[2023-04-17 11:53] LABS: SARS Covid-2 Antigen negative (Negative)
[2023-04-17 14:02] VITALS: BP 149/65; PULSE 63; RESP 19; TEMP 36.4; O2SAT 96
== END 2023-04-17 13:50 | disposition skilled nursing facility (03) | DRG 463 ==
LOC: ER 10:00 → MEDSURG 13:51
PROVIDERS: Admitting Provider Internal Medicine; Emergency Provider Family Medicine; PCP Family Medicine; Visit Provider Internal Medicine
DX: M62.82 Rhabdomyolysis (principal); J18.9 Pneumonia, unspecified organism; I45.2 Bifascicular block; S22.32XA Fracture of one rib, left side, initial encounter for closed fracture; S22.31XA Fracture of one rib, right side, initial encounter for closed fracture; L97.422 Non-pressure chronic ulcer of left heel and midfoot with fat layer exposed; N17.9 Acute kidney failure, unspecified; E11.42 Type 2 diabetes mellitus with diabetic polyneuropathy; E11.65 Type 2 diabetes mellitus with hyperglycemia; E11.22 Type 2 diabetes mellitus with diabetic chronic kidney disease; I12.9 Hypertensive chronic kidney disease with stage 1 through stage 4 chronic kidney disease, or unspecified chronic kidney disease; N18.30 Chronic kidney disease, stage 3 unspecified; W18.30XA Fall on same level, unspecified, initial encounter; Z99.81 Dependence on supplemental oxygen; N40.0 Benign prostatic hyperplasia without lower urinary tract symptoms; E11.621 Type 2 diabetes mellitus with foot ulcer; Z79.82 Long term (current) use of aspirin; Z79.4 Long term (current) use of insulin; E66.01 Morbid (severe) obesity due to excess calories; Z68.35 Body mass index [BMI] 35.0-35.9, adult; Z87.891 Personal history of nicotine dependence; I35.0 Nonrheumatic aortic (valve) stenosis; F40.240 Claustrophobia; J44.9 Chronic obstructive pulmonary disease, unspecified; R77.8 Other specified abnormalities of plasma proteins; R55 Syncope and collapse
CPT/HCPCS: 36415; 36416; 70450; 71101; 80048; 80053; 81001; 82550; 82962; 83036; 83605; 83735; 84145; 84443; 84484; 85025; 85378; 86140; 87040; 87070; 87077; 87086; 87186; 87426; 93005; 93306; 93970; 96365; 96372; 97110; 97116; 97162; 97530; 99285; C8929; J0360; J1650; J1815; J2543; J7030; L4361; Q9956

== ENCOUNTER 2023-05-16 09:55 | Outpatient (CLI) | payer MEDICARE, SELFPAY ==
--- NOTE | 2023-05-16 10:01 | CT_ITS ---
WS: [id number] CTA OF THE CHEST WITH PULMONARY EMBOLISM PROTOCOL TECHNIQUE: High-resolution contrast enhanced CTA of the chest with coronal and sagittal reformatted i mages with pulmonary embolism protocol. MIP images are also reviewed. 3 contrast injections performed due to missed bolus. 190 cc injected total. CLINICAL INFORMATION: ELEVATED D-DIMER, HYPOXIA AND R/O PE COMPARISON: None. DLP: 1430.[address] scans at [facility] use at least one of these dose optimization techniques: automated e xposure control; mA and/or kV adjustment per patient size (includes targeted exams where dose is matc hed to clinical indication); or iterative reconstruction. FINDINGS: Proximal main pulmonary arteries are normal. Normal segmental and subsegmental pulmonary ar teries. No evidence of pulmonary embolus. Shallow inspiration. Cardiomegaly. Normal caliber thoracic aorta. Aortic calcification. Coronary calc ification. Enlarged LEFT ventricle. Hepatomegaly partially visualized. Normal GE junction. Adrenal glands are normal. Fatty atrophy of th e pancreas. Splenic artery calcifications. No mediastinal or hilar lymphadenopathy. No axillary lymph adenopathy. Chronic interstitial changes in both lungs with mild chronic emphysema. Slight bibasilar Pau RIGHT greater than LEFT. No focal consolidation or pleural fluid. Chronic LEFT rib fractures with callus fo rmation. Chronic compression fracture in the mid to upper thoracic spine approximately T6 with anterior wedgin g and loss of approximately 75% vertebral body height centrally and anteriorly. Posterior cortex rela tively well-preserved. Associated sclerosis. This has a chronic appearance. Erosive changes involving the mid and anterior vertebral body. Recommend correlation with clinical history. This is new since 09/01/2020 CTA. IMPRESSION: 1. No evidence of pulmonary embolus. 2. Shallow inspiration with chronic interstitial changes in both lungs. Slight RIGHT greater than LE FT bibasilar atelectasis. 3. Cardiomegaly. 4. Chronic appearing compression fracture with anterior wedging approximately T6 with sclerosis and erosive changes. Recommend correlation with clinical history. 5. Chronic LEFT rib fractures with callus formation.
[2023-05-16] MEDS: iohexol 350 mg/mL 500 mL Btl (per mL) IV (11:03)
== END 2023-05-16 09:56 | disposition home or self-care (01) ==
LOC: RAD 09:57
PROVIDERS: PCP Family Medicine; Visit Provider Family Medicine
DX: R79.1 Abnormal coagulation profile (principal); R09.02 Hypoxemia; J98.11 Atelectasis; I51.7 Cardiomegaly; M48.54XA Collapsed vertebra, not elsewhere classified, thoracic region, initial encounter for fracture
CPT/HCPCS: 71275; Q9967

== ENCOUNTER 2023-07-26 16:36 | Emergency (ER) | payer OTHER, SELFPAY ==
[2023-07-26 16:45] VITALS: BP 143/70; PULSE 66; RESP 18; O2SAT 94
[2023-07-26 16:48] VITALS: TEMP 36.4
--- NOTE | 2023-07-26 16:53 | W.ED.GENADLT ---
Documented by User: Giovany Hollingsworth DO 07/29/23 07:06 HPI - General Adult General: Chief complaint: General Medical Stated complaint: diabetic Time Seen by Provider: 07/26/23 16:39 Source: patient and EMS Mode of arrival: EMS Limitations: no limitations History of Present Illness: Patient is a 77-year-old male with history of type 2 diabetes, CKD, and COPD who presents the emergency department via EMS due to hypoglycemia onset 2-3 days. EMS was called by patient's home health nurse, as the patient called her today and reported that his glucometer had multiple readings of high. However, he does not report any symptoms aside from a mild increase in urinary frequency. He states he last saw his primary care provider 2-3 months ago where he had an A1c of 10. He says he had his insulin dosage increased at that time and says he currently takes a long-acting basal insulin as well as a short acting. As far as he knows, he has not missed any doses of his insulin. He also states he recently stayed for a month in a nursing rehab facility due to a head injury, where he says his blood glucose was controlled. He states his blood sugar normally runs 100?160. He denies any visual changes, chest pain, breathing difficulties, nausea vomiting or diarrhea. Onset (ago): day(s) (2-3) Associated symptoms: Deny chest pain, dyspnea, malaise, nausea, rash or vomiting Review of Systems Const: Denies: fever(s), chills, body aches, change in appetite, fatigue or malaise Eyes: Denies: change in vision or blurry vision ENMT: Denies: throat pain, ear or mastoid pain, nasal discharge or nasal congestion Card: Denies: chest pain, edema, dyspnea on exertion or orthopnea Resp: Denies: dyspnea, productive cough or non-productive cough GI: Denies: abdominal pain, nausea, vomiting, hematemesis, coffee ground emesis, diarrhea, constipation, bloating, hematochezia or melena : Reports: urinary frequency; Denies: flank pain, dysuria or urinary urgency Skin/Breast: Denies: rash or pruritus Endo: Reports: other (Hyperglycemia) [facility] ED PFSH: Medical History Acute respiratory failure with hypoxia Benign prostatic hyperplasia Bifascicular block CKD stage 3 due to type 2 diabetes mellitus COPD (chronic obstructive pulmonary disease) Diabetes mellitus type 2 in obese Diabetic ulcer of foot associated with diabetes mellitus due to underlying condition, with fat layer exposed Dyspnea on exertion HTN (hypertension) Obesity (BMI 30.0-34.9) Pneumonia Rhabdomyolysis Syncope Surgical History H/O shoulder surgery Previous back surgery Family History Mother , Old age, at 94 No problems noted. Father , Old age in mid 80s No problems noted. Social History Smoking and tobacco/nicotine status: former use of tobacco/nicotine Alcohol intake: former Substance/Drug Use: never Marital status: Physical Exam Const: COMMON NORMALS: no acute distress GENERAL APPEARANCE: cooperative and comfortable NUTRITIONAL APPEARANCE: obese ORIENTATION/CONSCIOUSNESS: Yes awake, Yes oriented to person, Yes oriented to place and Yes oriented to time OTHER: Mildly disheveled appearance HENMT: COMMON NORMALS: normocephalic, atraumatic, hearing grossly normal bilaterally, external ears normal, EAC's normal, TM's normal bilaterally, Normal nasal mucous membranes and turbinates present, moist oral mucous membranes and oropharynx normal HEAD & SCALP: normocephalic and atraumatic NOSE: Normal nasal mucous membranes and turbinates present EXTERNAL EAR: Yes external ears normal EXTERNAL AUDITORY CANAL: EAC's normal TYMPANIC MEMBRANE: TM's normal bilaterally Eye: COMMON NORMALS: Equal, round and reactive pupils present, EOMs intact bilaterally, conjunctivae normal and no scleral icterus CONJUNCTIVA: Yes conjunctivae normal PUPIL: Yes Equal, round and reactive pupils present Neck/C-Spine: COMMON NORMALS: full ROM, no lymphadenopathy, supple and no JVD Lymph: LYMPHATIC: no lymphadenopathy noted and no lymphedema noted Resp: COMMON NORMALS: normal respiratory effort, No retractions, No use of accessory muscles and clear to auscultation bilaterally AUSCULTATION: clear to auscultation bilaterally Cardio: COMMON NORMALS: no JVD, regular rate, regular rhythm and No murmurs present (Cardio) RATE: regular rate RHYTHM: regular rhythm HEART SOUNDS: Murmur heart sound present systolic Intensity: I/ GI: COMMON NORMALS: Soft to palpation and No hepatosplenomegaly present AUSCULTATION: Yes normoactive bowel sounds PALPATION: Yes Soft to palpation, No Tenderness to palpation present (GI), No Guarding due to palpation present (GI) and Yes No hepatosplenomegaly present Extremity: COMMON NORMALS: normal to inspection, capillary refill normal, no clubbing, cyanosis or edema, no calf tenderness and no pedal edema OTHER: Bilateral lower extremities are wrapped in [place]. Evaluation of the lower extremities reveals bilateral erythema and scaling extending proximally from the toes to just below the knee. There is a stage I ulcer to the inferior portion of the left heel without any evidence of purulent drainage or central ulceration. Lower extremities exhibit 2+ edema bilaterally. Neuro: SENSORIUM/ORIENTATION: Yes oriented to person, Yes oriented to place and Yes oriented to time Skin: COMMON NORMALS: no rashes or lesions noted GENERAL SKIN EXAM: no rashes or lesions noted Course Vital Signs: Vital signs: Vital Signs Temperature 97.6 F 07/26/23 16:48 Pulse Rate 64 07/26/23 22:29 Respiratory Rate 20 H 07/26/23 22:29 Blood Pressure 126/84 07/26/23 22:29 Pulse Oximetry 95 07/26/23 22:29 Oxygen Delivery Ca thod Room Air 07/26/23 17:38 MDM - General Adult Medical Decision Making Care signed out to Dr. Oleary at change of shift. See final notes for diagnosis and disposition. 77-year-old gentleman checked out to me at shift change by Dr. Hollingsworth. This patient had hyperglycemia. His sugar was 542 on serum testing. After 2 doses of IV insulin, it is trending down now. He received IV fluid as well which helped. He is nonketotic, not acidotic. His anion gap is only 16. He is essentially asymptomatic. He will be discharged on his home dose of Lantus insulin at night with a sliding scale during the day. He was given a sliding scale and instructed on how to use it. Close outpatient follow-up. Lab Data 07/26/23 17:10 07/26/23 17:10 Laboratory Results WBC 11.70 10^3/uL (3.29-11.43) H 07/26/23 17:10 RBC 4.79 10^6/uL (3.85-5.65) 07/26/23 17:10 Hgb 12.30 g/dL (11.27-16.99) 07/26/23 17:10 Hct 39.1 % (37-53) 07/26/23 17:10 MCV 81.6 fl (82-101) L 07/26/23 17:10 MCH 25.7 pg (27-33) L 07/26/23 17:10 MCHC 31.5 g/dL (30-55) 07/26/23 17:10 RDW 15.0 % (12.1-15.1) 07/26/23 17:10 Plt Count 304 10^3/cmm (157-399) 07/26/23 17:10 MPV 9.6 fL (7.4-10.4) 07/26/23 17:10 Neut % (Auto) 79.1 % 07/26/23 17:10 Lymph % (Auto) 9.3 % 07/26/23 17:10 [place] % (Auto) 7.3 % 07/26/23 17:10 Eos % (Auto) 2.8 % 07/26/23 17:10 Baso % (Auto) 0.9 % 07/26/23 17:10 Neut # (Auto) 9.25 10^3/uL (1.8-7.7) H 07/26/23 17:10 Lymph # (Auto) 1.1 10^3/uL (0.8-4.8) 07/26/23 17:10 [place] # (Auto) 0.9 10^3/uL (0.2-0.9) 07/26/23 17:10 Eos # (Auto) 0.3 10^3/uL (0.0-0.8) 07/26/23 17:10 Baso # (Auto) 0.1 10^3/uL (0.0-0.1) 07/26/23 17:10 Nucleated RBC % (auto) 0 % 07/26/23 17:10 Nucleated RBCs # 0.0 /100WBC 07/26/23 17:10 Sodium 133 mmol/L (136-145) L 07/26/23 17:10 Potassium 5.0 mmol/L (3.5-5.1) 07/26/23 17:10 Chloride 95 mmol/L (98-107) L 07/26/23 17:10 Carbon Dioxide 27 mmol/L (22-29) 07/26/23 17:10 Anion Gap 16.0 (5-19) 07/26/23 17:10 BUN 58 mg/dL (8-23) H 07/26/23 17:10 Creatinine 1.8 mg/dL (0.7-1.2) H 07/26/23 17:10 GFR Calculation Not Reportable 07/26/23 17:10 Glucose 542 mg/dL (65-115) H* 07/26/23 17:10 POC Glucose 432 mg/dL (70-110) H 07/26/23 21:24 Calculated Osmolality 317 mOsm/kg (285-295) H 07/26/23 17:10 Calcium 11.4 mg/dL (8.5-10.5) H 07/26/23 17:10 Urine Color Yellow (Yellow) 07/26/23 18:07 Urine Appearance Clear (CLEAR) 07/26/23 18:07 Urine pH 5 (5-7) 07/26/23 18:07 Ur Specific [place] 1.020 (1.005-1.030) 07/26/23 18:07 Urine Protein Trace (Negative) 07/26/23 18:07 Urine Glucose (UA) 4+ (Normal) H 07/26/23 18:07 Urine Ketones 1+ (Negative) H 07/26/23 18:07 Urine Blood 2+ (Negative) H 07/26/23 18:07 Urine Nitrate Negative (Negative) 07/26/23 18:07 Urine Bilirubin Neg (Negative) 07/26/23 18:07 Urine Urobilinogen Neg mg/dL (Negative) 07/26/23 18:07 Ur Leukocyte Esterase Trace (Negative) H 07/26/23 18:07 Urine RBC Rare /hpf (0-2) 07/26/23 18:07 Urine WBC Rare /hpf (0-5) 07/26/23 18:07 Ur Squamous Epith Cells Rare /hpf (0-5) 07/26/23 18:07 Amorphous Sediment 1+ /hpf 07/26/23 18:07 Urine Bacteria Trace /hpf (NONE) 07/26/23 18:07 Urine Mucus 1+ /hpf 07/26/23 18:07 Serum Ketones Negative (Negative) 07/26/23 17:10 Discharge Plan Discharge Patient Disposition: Home Clinical Impression: Acute hyperglycemia Condition: Stable Prescriptions: No Action aspirin [Adult Low Dose Aspirin] 81 mg tablet,delayed release (DR/EC) 81 mg PO DAILY cholecalciferol (vitamin D3) [Vitamin D3] 50 mcg (2,000 unit) Capsule 50 mcg PO DAILY insulin aspart U-100 100 unit/mL (3 mL) Insulin Pen 30 unit SUBCUT TID Rx Instructions: states it is omega-3 fatty acids 500 mg Capsule 1,000 mg PO BID tamsulosin 0.4 mg Capsule 0.4 mg PO BID Qty: 60 0RF pantoprazole 40 mg Tablet,Delayed Release (Dr/Ec) 40 mg PO DAILY lisinopril 40 mg Tablet 20 mg PO DAILY finasteride 5 mg Tablet 5 mg PO DAILY formoterol fumarate 20 mcg/2 mL Solution For Nebulization 2 ml INHALATION BID clopidogrel 75 mg Tablet 75 mg PO DAILY Qty: 90 0RF doxycycline monohydrate 100 mg Tablet 100 mg PO BID Qty: 20 0RF amoxicillin-pot clavulanate 875-125 mg tablet 1 tab PO BID Qty: 20 0RF potassium chloride 10 mEq tablet extended release 10 meq PO DAILY Qty: 20 0RF Rx Instructions: Only take when you are taking Lasix Lasix 40 mg Tablet 40 mg PO DAILY Qty: 60 0RF Eliquis 5 mg tablet 5 mg PO BID Qty: 120 0RF Lantus Solostar U-100 Insulin 100 unit/mL (3 mL) insulin pen 60 unit SUBCUT QPM Qty: 15 0RF Discharge Orders: Discharge ED (Routine); Ordered 07/26/23 Ordered By: Patel Oleary Referrals: Jero Juárez MD [Primary Care Provider] - 1-3 days Patient Instructions: Hyperglycemia, Opioid Safety, Pain Management Activity Restrictions/Additional Instructions: Use your long-acting insulin nightly. Check your sugar often.Starting when you wake and then 3 times daily before meals. You will need to use your NovoLog insulin during the day. A sliding scale has been sent home with you. Use the blood sugar reading to correlate how much insulin you should be using with those checks. Return for problems. See your doctor next week. Coding Level of Care Code ED Portable Irrigation Operator for Chg Fwd Documented by User: Patel Oleary DO 07/27/23 20:06 HPI - General Adult General: Chief complaint: General Medical Stated complaint: diabetic Time Seen by Provider: 07/26/23 16:39 History of Present Illness: Patient is a 77-year-old male with history of type 2 diabetes, CKD, and COPD who presents the emergency department via EMS due to hyperlycemia onset 2-3 days. EMS was called by patient's home health nurse, as the patient called her today and reported that his glucometer had multiple readings of high. However, he does not report any symptoms aside from a mild increase in urinary frequency. He states he last saw his primary care provider 2-3 months ago where he had an A1c of 10. He says he had his insulin dosage increased at that time and says he currently takes a long-acting basal insulin as well as a short acting. As far as he knows, he has not missed any doses of his insulin. He also states he recently stayed for a month in a nursing rehab facility due to a head injury, where he says his blood glucose was controlled. He states his blood sugar normally runs 100?160. He denies any visual changes, chest pain, breathing difficulties, nausea vomiting or diarrhea. [facility] ED PFSH: Medical History Acute respiratory failure with hypoxia Benign prostatic hyperplasia Bifascicular block CKD stage 3 due to type 2 diabetes mellitus COPD (chronic obstructive pulmonary disease) Diabetes mellitus type 2 in obese Diabetic ulcer of foot associated with diabetes mellitus due to underlying condition, with fat layer exposed Dyspnea on exertion HTN (hypertension) Obesity (BMI 30.0-34.9) Pneumonia Rhabdomyolysis Syncope Surgical History H/O shoulder surgery Previous back surgery Family History Mother , Old age, at 94 No problems noted. Father , Old age in mid 80s No problems noted. Social History Smoking and tobacco/nicotine status: former use of tobacco/nicotine Alcohol intake: former Substance/Drug Use: never Marital status: Course Vital Signs: Vital signs: Vital Signs Temperature 97.6 F 07/26/23 16:48 Pulse Rate 64 07/26/23 22:29 Respiratory Rate 20 H 07/26/23 22:29 Blood Pressure 126/84 07/26/23 22:29 Pulse Oximetry 95 07/26/23 22:29 Oxygen Delivery Me thod Room Air 07/26/23 17:38 MDM - General Adult Medical Decision Making 77-year-old gentleman checked out to me at shift change by Dr. Hollingsworth. This patient had hyperglycemia. His sugar was 542 on serum testing. After 2 doses of IV insulin, it is trending down now. He received IV fluid as well which helped. He is nonketotic, not acidotic. His anion gap is only 16. He is essentially asymptomatic. He will be discharged on his home dose of Lantus insulin at night with a sliding scale during the day. He was given a sliding scale and instructed on how to use it. Close outpatient follow-up. Lab Data 07/26/23 17:10 07/26/23 17:10 Laboratory Results WBC 11.70 10^3/uL (3.29-11.43) H 07/26/23 17:10 RBC 4.79 10^6/uL (3.85-5.65) 07/26/23 17:10 Hgb 12.30 g/dL (11.27-16.99) 07/26/23 17:10 Hct 39.1 % (37-53) 07/26/23 17:10 MCV 81.6 fl (82-101) L 07/26/23 17:10 MCH 25.7 pg (27-33) L 07/26/23 17:10 MCHC 31.5 g/dL (30-55) 07/26/23 17:10 RDW 15.0 % (12.1-15.1) 07/26/23 17:10 Plt Count 304 10^3/cmm (157-399) 07/26/23 17:10 MPV 9.6 fL (7.4-10.4) 07/26/23 17:10 Neut % (Auto) 79.1 % 07/26/23 17:10 Lymph % (Auto) 9.3 % 07/26/23 17:10 [place] % (Auto) 7.3 % 07/26/23 17:10 Eos % (Auto) 2.8 % 07/26/23 17:10 Baso % (Auto) 0.9 % 07/26/23 17:10 Neut # (Auto) 9.25 10^3/uL (1.8-7.7) H 07/26/23 17:10 Lymph # (Auto) 1.1 10^3/uL (0.8-4.8) 07/26/23 17:10 [place] # (Auto) 0.9 10^3/uL (0.2-0.9) 07/26/23 17:10 Eos # (Auto) 0.3 10^3/uL (0.0-0.8) 07/26/23 17:10 Baso # (Auto) 0.1 10^3/uL (0.0-0.1) 07/26/23 17:10 Nucleated RBC % (auto) 0 % 07/26/23 17:10 Nucleated RBCs # 0.0 /100WBC 07/26/23 17:10 Sodium 133 mmol/L (136-145) L 07/26/23 17:10 Potassium 5.0 mmol/L (3.5-5.1) 07/26/23 17:10 Chloride 95 mmol/L (98-107) L 07/26/23 17:10 Carbon Dioxide 27 mmol/L (22-29) 07/26/23 17:10 Anion Gap 16.0 (5-19) 07/26/23 17:10 BUN 58 mg/dL (8-23) H 07/26/23 17:10 Creatinine 1.8 mg/dL (0.7-1.2) H 07/26/23 17:10 GFR Calculation Not Reportable 07/26/23 17:10 Glucose 542 mg/dL (65-115) H* 07/26/23 17:10 POC Glucose 432 mg/dL (70-110) H 07/26/23 21:24 Calculated Osmolality 317 mOsm/kg (285-295) H 07/26/23 17:10 Calcium 11.4 mg/dL (8.5-10.5) H 07/26/23 17:10 Urine Color Yellow (Yellow) 07/26/23 18:07 Urine Appearance Clear (CLEAR) 07/26/23 18:07 Urine pH 5 (5-7) 07/26/23 18:07 Ur Specific [place] 1.020 (1.005-1.030) 07/26/23 18:07 Urine Protein Trace (Negative) 07/26/23 18:07 Urine Glucose (UA) 4+ (Normal) H 07/26/23 18:07 Urine Ketones 1+ (Negative) H 07/26/23 18:07 Urine Blood 2+ (Negative) H 07/26/23 18:07 Urine Nitrate Negative (Negative) 07/26/23 18:07 Urine Bilirubin Neg (Negative) 07/26/23 18:07 Urine Urobilinogen Neg mg/dL (Negative) 07/26/23 18:07 Ur Leukocyte Esterase Trace (Negative) H 07/26/23 18:07 Urine RBC Rare /hpf (0-2) 07/26/23 18:07 Urine WBC Rare /hpf (0-5) 07/26/23 18:07 Ur Squamous Epith Cells Rare /hpf (0-5) 07/26/23 18:07 Amorphous Sediment 1+ /hpf 07/26/23 18:07 Urine Bacteria Trace /hpf (NONE) 07/26/23 18:07 Urine Mucus 1+ /hpf 07/26/23 18:07 Serum Ketones Negative (Negative) 07/26/23 17:10 No radiology studies performed this visit Discharge Plan Discharge Patient Disposition: Home Clinical Impression: Acute hyperglycemia Condition: Stable Prescriptions: No Action aspirin [Adult Low Dose Aspirin] 81 mg tablet,delayed release (DR/EC) 81 mg PO DAILY cholecalciferol (vitamin D3) [Vitamin D3] 50 mcg (2,000 unit) Capsule 50 mcg PO DAILY insulin aspart U-100 100 unit/mL (3 mL) Insulin Pen 30 unit SUBCUT TID Rx Instructions: states it is omega-3 fatty acids 500 mg Capsule 1,000 mg PO BID tamsulosin 0.4 mg Capsule 0.4 mg PO BID Qty: 60 0RF pantoprazole 40 mg Tablet,Delayed Release (Dr/Ec) 40 mg PO DAILY lisinopril 40 mg Tablet 20 mg PO DAILY finasteride 5 mg Tablet 5 mg PO DAILY formoterol fumarate 20 mcg/2 mL Solution For Nebulization 2 ml INHALATION BID clopidogrel 75 mg Tablet 75 mg PO DAILY Qty: 90 0RF doxycycline monohydrate 100 mg Tablet 100 mg PO BID Qty: 20 0RF amoxicillin-pot clavulanate 875-125 mg tablet 1 tab PO BID Qty: 20 0RF potassium chloride 10 mEq tablet extended release 10 meq PO DAILY Qty: 20 0RF Rx Instructions: Only take when you are taking Lasix Lasix 40 mg Tablet 40 mg PO DAILY Qty: 60 0RF Eliquis 5 mg tablet 5 mg PO BID Qty: 120 0RF Lantus Solostar U-100 Insulin 100 unit/mL (3 mL) insulin pen 60 unit SUBCUT QPM Qty: 15 0RF Discharge Orders: Discharge ED (Routine); Ordered 07/26/23 Ordered By: Patel Oleary Referrals: Jero Juárez MD [Primary Care Provider] - 1-3 days Patient Instructions: Hyperglycemia, Opioid Safety, Pain Management Activity Restrictions/Additional Instructions: Use your long-acting insulin nightly. Check your sugar often.Starting when you wake and then 3 times daily before meals. You will need to use your NovoLog insulin during the day. A sliding scale has been sent home with you. Use the blood sugar reading to correlate how much insulin you should be using with those checks. Return for problems. See your doctor next week. Coding Level of Care Code ED Portable Irrigation Operator for [place]
[2023-07-26 17:14] LABS: Glucose Point of Care 527 mg/dL (70-110)
[2023-07-26 17:28] LABS: Basophils # 0.1 10^3/uL (0.0-0.1); Basophils % 0.9 %; Eosinophils # 0.3 10^3/uL (0.0-0.8); Eosinophils % 2.8 %; Hematocrit 39.1 % (37-53); Lymphocytes # 1.1 10^3/uL (0.8-4.8); Lymphocytes % 9.3 %; Mean Corpuscular HGB Conc 31.5 g/dL (30-55); Mean Corpuscular Hemoglobin 25.7 pg (27-33); Mean Corpuscular Volume 81.6 fl (82-101); Mean Platelet Volume 9.6 fL (7.4-10.4); Monocytes # 0.9 10^3/uL (0.2-0.9); Monocytes % 7.3 %; Neutrophils # 9.25 10^3/uL (1.8-7.7); Neutrophils % 79.1 %; Nucleated Red Blood Cells % 0 %; Platelet Count 304 10^3/cmm (157-399); Red Blood Count 4.79 10^6/uL (3.85-5.65)
[2023-07-26 17:38] VITALS: BP 159/91; PULSE 64; RESP 16; O2SAT 95
[2023-07-26 17:45] LABS: Ketone (Acetest) Serum Negative (Negative)
[2023-07-26 17:47] LABS: Blood Urea Nitrogen 58 mg/dL (8-23); Calcium 11.4 mg/dL (8.5-10.5); Carbon Dioxide 27 mmol/L (22-29); Chloride 95 mmol/L (98-107); Osmolality Calculated 317 mOsm/kg (285-295); Sodium 133 mmol/L (136-145)
[2023-07-26 17:50] LABS: Glucose 542 mg/dL (65-115)
[2023-07-26] MEDS: insulin regular-human 100 units/1 mL 10 UNIT IVP (18:22)
[2023-07-26] MEDS: sodium chloride 0.9% 500 ML 999 ML IV (18:22)
[2023-07-26 18:30] VITALS: BP 145/73; O2SAT 91
--- NOTE | 2023-07-26 18:38 | PC.NURSE ---
POC BLOOD GLUCOSE AT 1815 536.
[2023-07-26 19:07] LABS: Add Urine Culture? No; Add Urine Microscopic? YES; Amorphous Sediment Urine 1+ /hpf; Bacteria Urine TRACE /hpf; Bilirubin Urine Neg (Negative); Blood Urine 2+ (Negative); Glucose Urine UA 4+ (Normal); Ketones Urine 1+ (Negative); Leukocyte Esterase Urine Trace (Negative); Mucus Urine 1+ /hpf; Nitrate Urine Negative (Negative); Protein Urine Trace (Negative); RBC Urine RARE /hpf (0-2); Squamous Epithelial Cell Urine RARE /hpf (0-5); Urine Appearance Clear (CLEAR); Urine Color Yellow (Yellow); Urobilinogen Urine Neg (Negative); WBC Urine RARE /hpf (0-5); pH Urine 5 (5-7)
[2023-07-26 20:31] LABS: Glucose Point of Care 459 mg/dL (70-110)
[2023-07-26] MEDS: insulin regular-human 100 units/1 mL 12 UNIT IVP (20:53)
[2023-07-26] MEDS: insulin glargine 100 units/1 mL 60 UNIT SUBCUT (22:23)
[2023-07-26 22:29] VITALS: BP 126/84; PULSE 64; RESP 20; O2SAT 95
[2023-07-26 23:05] LABS: Glucose Point of Care 432 mg/dL (70-110)
== END 2023-07-26 22:49 | disposition home or self-care (01) ==
PROVIDERS: Family Medicine; Emergency Provider Emergency Medicine; PCP Family Medicine
DX: E11.65 Type 2 diabetes mellitus with hyperglycemia (principal); Z79.82 Long term (current) use of aspirin; Z79.4 Long term (current) use of insulin; Z79.02 Long term (current) use of antithrombotics/antiplatelets; Z79.01 Long term (current) use of anticoagulants; E11.22 Type 2 diabetes mellitus with diabetic chronic kidney disease; I12.9 Hypertensive chronic kidney disease with stage 1 through stage 4 chronic kidney disease, or unspecified chronic kidney disease; N18.30 Chronic kidney disease, stage 3 unspecified; Z87.891 Personal history of nicotine dependence
CPT/HCPCS: 36416; 80048; 81001; 82009; 82962; 85025; 96372; 96374; 96376; 99284; J1815; J7040

== ENCOUNTER 2023-07-31 11:51 | Inpatient (IN) | payer OTHER, SELFPAY ==
[2023-07-31] VITALS (24 sets, daily range): BP systolic 70–115; BP diastolic 40–63; PULSE 62–71; RESP 16–24; TEMP 36.4–36.8; O2SAT 92–97; BMI 26.9
--- NOTE | 2023-07-31 12:05 | ECG_ITS ---
[facility] Test Date: 2023-07-31 Pat Name: Preston Knowles Department: Room: Gender: Male Hiv/Aids Care Nurse: : 1945 Requested By: Giovany Roman Order Number: [id number] Judy MD: Anali Johnston M.D. Measurements Intervals [place] Rate: 64 P: -15 WI: 174 QRS: -57 QRSD: 185 T: 33 QT: 421 QTc: 436 Interpretive Statements SINUS RHYTHM LEFT AXIS DEVIATION [QRS AXIS < -30] RIGHT BUNDLE BRANCH BLOCK [120+ ms QRS DURATION, UPRIGHT V1, 40+ ms S IN I/aVL/V4/V5/V6] MODERATE VOLTAGE CRITERIA FOR LVH, CONSIDER NORMAL VARIANT [MEETS CRITERIA IN ONE OF: R(aVL), S(V1), R(V5), R(V5/V6)+S(V1)] POSSIBLE SEPTAL MYOCARDIAL INFARCTION , PROBABLY OLD [30 ms Q WAVE IN V1/V2] Compared to ECG 04/15/2023 14:46:32 Left-axis deviation now present Left anterior fascicular block no longer present Myocardial infarct finding still present Electronically Signed On 08-01-2023 0:42:09 NETWORK SYSTEMS ANALYST by Anali Johnston M.D. [email or web address]
[2023-07-31] MEDS: sodium chloride 0.9% 500 ML 999 ML IV ×2 (12:10→14:18)
[2023-07-31 12:19] LABS: Basophils % 0.4 %; Eosinophils # 0.1 10^3/uL (0.0-0.8); Eosinophils % 1.2 %; Hematocrit 33.6 % (37-53); Lymphocytes # 0.5 10^3/uL (0.8-4.8); Lymphocytes % 5.3 %; Mean Corpuscular HGB Conc 31.3 g/dL (30-55); Mean Corpuscular Hemoglobin 25.6 pg (27-33); Mean Platelet Volume 9.9 fL (7.4-10.4); Monocytes # 1.2 10^3/uL (0.2-0.9); Monocytes % 12.9 %; Neutrophils # 7.35 10^3/uL (1.8-7.7); Neutrophils % 79.3 %; Nucleated Red Blood Cells % 0 %; Platelet Count 245 10^3/cmm (157-399); Red Cell Distribution Width 15.2 % (12.1-15.1); White Blood Count 9.27 10^3/uL (3.29-11.43)
[2023-07-31] MEDS: ipratropium-albuterol 3 mL Neb INHALATION (12:28)
[2023-07-31 12:40] LABS: Alanine Aminotransferase 7 U/L (0-41); Albumin Level 2.7 g/dL (3.5-5.2); Alkaline Phosphatase 111 U/L (40-130); Anion Gap 14.6 (5-19); Aspartate Amino Transferase 9 U/L (0-40); Blood Urea Nitrogen 60 mg/dL (8-23); Calcium 9.9 mg/dL (8.5-10.5); Carbon Dioxide 24 mmol/L (22-29); Chloride 98 mmol/L (98-107); Globulin 3.5 g/dL (1.3-4.6); Glucose 399 mg/dL (65-115); Osmolality Calculated 308 mOsm/kg (285-295); Potassium 4.6 mmol/L (3.5-5.1); Sodium 132 mmol/L (136-145); Total Bilirubin 0.4 mg/dL (0.15-1.2); Total Protein 6.2 g/dL (6.6-8.7)
--- NOTE | 2023-07-31 12:40 | XR_ITS ---
WS: [id number] Portable AP semiupright chest, 07/31/2023 Clinical Data: dyspnea/cough Comparison: Portable chest, 04/15/2023 Findings: There is a patchy right upper lobe opacity unchanged. This may represent scarring or a enamel applier arlene interstitial infiltrate. There are bilateral patchy lower lobe opacities which may represent atel ectasis and/or minimal pneumonia. No nodules, masses or effusions are seen. The heart is enlarged. Th e pulmonary vascularity is not increased. No pneumothorax is seen. Monitor leads are on the chest wal l. There are orthopedic anchors in the right humeral head. Impression: 1. No change in patchy right upper lobe opacity. 2. Bilateral patchy lower lobe opacities which may represent atelectasis and/or pneumonia.. 3. Cardiomegaly.
--- NOTE | 2023-07-31 12:47 | W.ED.GENADLT ---
HPI - General Adult General: Chief complaint: General Medical Stated complaint: Hypotension Time Seen by Provider: 07/31/23 11:52 Source: patient Mode of arrival: ambulatory History of Present Illness: 69-year-old male withPresents emergency room with complaint of shortness of breath and low blood pressure. Denies any chest pain. He did did recently change his insulin due to hypoglycemia. Reviewing his med list he is on hydrochlorothiazide Lasix and spironolactone as well as an SANDRA inhibitor and an ARB. In addition to this he is on allopurinol. Onset (ago): minute(s) Severity: mild Quality: burning Pain Consistency: constant Relieving factors: none Exacerbating factors: none Associated symptoms: Reports cough; Deny chest pain, confusion, diaphoresis, decreased appetite, dyspnea, fevers/chills, headache(s), malaise, nausea, rash, palpitations, seizures, short of breath, syncope, vomiting or weakness Treatments prior to arrival: none Review of Systems Const: Denies: fever(s), chills, malaise or diaphoresis Card: Denies: chest pain, palpitations or syncope Resp: Denies: dyspnea GI: Denies: abdominal pain, nausea or vomiting : Denies: dysuria, urinary frequency or urinary urgency Musc: Denies: neck pain or back pain Skin/Breast: Denies: rash Neuro: Denies: headache(s) or confusion PFS ED PFSH: Medical History (Updated 08/03/23 @ 00:03 by SUJIT Carbajal) Acute respiratory failure with hypoxia Benign prostatic hyperplasia Bifascicular block CKD stage 3 due to type 2 diabetes mellitus COPD (chronic obstructive pulmonary disease) Diabetes mellitus type 2 in obese Diabetic ulcer of foot associated with diabetes mellitus due to underlying condition, with fat layer exposed Dyspnea on exertion HTN (hypertension) Obesity (BMI 30.0-34.9) Pneumonia Rhabdomyolysis Syncope Surgical History H/O shoulder surgery Previous back surgery Family History Mother , Old age, at 94 No problems noted. Father , Old age in mid 80s No problems noted. Social History Smoking and tobacco/nicotine status: former use of tobacco/nicotine Alcohol intake: former Substance/Drug Use: never Marital status: Physical Exam Const: COMMON NORMALS: no acute distress GENERAL APPEARANCE: cooperative and comfortable ORIENTATION/CONSCIOUSNESS: Yes awake, Yes oriented to person, Yes oriented to place and Yes oriented to time HENMT: COMMON NORMALS: normocephalic, atraumatic and hearing grossly normal bilaterally HEAD & SCALP: normocephalic and atraumatic Resp: COMMON NORMALS: normal respiratory effort, No retractions, No use of accessory muscles and clear to auscultation bilaterally AUSCULTATION: clear to auscultation bilaterally Cardio: COMMON NORMALS: regular rate, regular rhythm and No murmurs present (Cardio) RATE: regular rate RHYTHM: regular rhythm GI: COMMON NORMALS: Soft to palpation and No hepatosplenomegaly present AUSCULTATION: Yes normoactive bowel sounds PALPATION: Yes Soft to palpation, No Tenderness to palpation present (GI), No Guarding due to palpation present (GI) and Yes No hepatosplenomegaly present Extremity: COMMON NORMALS: normal to inspection, capillary refill normal, no clubbing, cyanosis or edema, no calf tenderness and no pedal edema Neuro: SENSORIUM/ORIENTATION: Yes oriented to person, Yes oriented to place and Yes oriented to time Skin: COMMON NORMALS: no rashes or lesions noted GENERAL SKIN EXAM: no rashes or lesions noted Course Vital Signs: Vital signs: Vital Signs Temperature 101.1 F H 08/02/23 12:00 Pulse Rate 104 H 08/02/23 16:14 Respiratory Rate 28 H 08/02/23 16:14 Blood Pressure 109/62 08/02/23 12:00 Pulse Oximetry 94 08/02/23 16:14 Oxygen Delivery Me thod Nasal Cannula 08/02/23 14:23 Oxygen Flow Rate 4 08/02/23 14:23 Fraction of Inspir ed Oxygen 30 08/02/23 01:21 MDM - General Adult Medical Decision Making Pneumonia with acute kidney injury respiratory failure. Started on IV antibiotics hold medications IV fluids given discussed with hospitalist orders written Medical Records I reviewed the patient's medical records. Lab Data I reviewed the patient's lab results. 08/02/23 04:43 08/02/23 04:[address] 07/31/23 17:03 IMPRESSION: No acute intracranial abnormality. Chest X-Ray 08/01/23 16:43 IMPRESSION: There is increasing vascular prominence with probable bilateral superimposed small patchy areas of infiltrate or atelectasis. Chest CT 08/01/23 17:25 IMPRESSION: 1. New, superimposed area of consolidation in the right lower lobe and right upper lobe. This is favored to represent pneumonia. 2. Severe, chronic, wedge fracture of T6. 3. Additional non emergent findings are described in the body of the report. Laboratory Results WBC 7.82 10^3/uL (3.29-11.43) 08/01/23 02:34 RBC 3.95 10^6/uL (3.85-5.65) 08/01/23 02:34 Hgb 10.00 g/dL (11.27-16.99) L 08/01/23 02:34 Hct 33.5 % (37-53) L 08/01/23 02:34 MCV 84.8 fl (82-101) 08/01/23 02:34 MCH 25.3 pg (27-33) L 08/01/23 02:34 MCHC 29.9 g/dL (30-55) L 08/01/23 02:34 RDW 15.3 % (12.1-15.1) H 08/01/23 02:34 Plt Count 233 10^3/cmm (157-399) 08/01/23 02:34 MPV 9.8 fL (7.4-10.4) 08/01/23 02:34 Neut % (Auto) 78.7 % 08/01/23 02:34 Lymph % (Auto) 6.0 % 08/01/23 02:34 [place] % (Auto) 12.0 % 08/01/23 02:34 Eos % (Auto) 1.8 % 08/01/23 02:34 Baso % (Auto) 0.6 % 08/01/23 02:34 Neut # (Auto) 6.15 10^3/uL (1.8-7.7) 08/01/23 02:34 Lymph # (Auto) 0.5 10^3/uL (0.8-4.8) L 08/01/23 02:34 [place] # (Auto) 0.9 10^3/uL (0.2-0.9) 08/01/23 02:34 Eos # (Auto) 0.1 10^3/uL (0.0-0.8) 08/01/23 02:34 Baso # (Auto) 0.1 10^3/uL (0.0-0.1) 08/01/23 02:34 Nucleated RBC % (auto) 0 % 08/01/23 02:34 Nucleated RBCs # 0.0 /100WBC 08/01/23 02:34 Sodium 136 mmol/L (136-145) 08/01/23 02:34 Potassium 5.1 mmol/L (3.5-5.1) 08/01/23 02:34 Chloride 104 mmol/L (98-107) 08/01/23 02:34 Carbon Dioxide 20 mmol/L (22-29) L 08/01/23 02:34 Anion Gap 17.1 (5-19) 08/01/23 02:34 BUN 59 mg/dL (8-23) H 08/01/23 02:34 Creatinine 2.0 mg/dL (0.7-1.2) H 08/01/23 02:34 GFR Calculation Not Reportable 08/01/23 02:34 Glucose 365 mg/dL (65-115) H 08/01/23 02:34 POC Glucose 356 mg/dL (70-110) H 08/01/23 10:43 Estimat Average Glucose 266 07/31/23 12:12 Hemoglobin A1c 10.9 % (4.0-6.0) H 07/31/23 12:12 Calculated Osmolality 313 mOsm/kg (285-295) H 08/01/23 02:34 Lactic Acid 1.6 mmol/L (0.5-2.2) 07/31/23 12:08 Calcium 9.6 mg/dL (8.5-10.5) 08/01/23 02:34 Phosphorus 3.1 mg/dL (2.5-4.5) 07/31/23 12:12 Magnesium 2.2 mg/dL (1.7-2.3) 08/01/23 02:34 Total Bilirubin 0.4 mg/dL (0.15-1.2) 07/31/23 12:12 AST 9 U/L (0-40) 07/31/23 12:12 ALT 7 U/L (0-41) 07/31/23 12:12 Alkaline Phosphatase 111 U/L (40-130) 07/31/23 12:12 Creatine Kinase 48 U/L (39-308) 07/31/23 12:12 NT-Pro-B Natriuret Pep 1263 pg/mL (0-450) H 07/31/23 12:12 Total Protein 6.2 g/dL (6.6-8.7) L 07/31/23 12:12 Albumin 2.7 g/dL (3.5-5.2) L 07/31/23 12:12 Globulin 3.5 g/dL (1.3-4.6) 07/31/23 12:12 Vitamin B12 547 pg/mL (232-1245) 08/01/23 02:34 Procalcitonin 0.91 ng/mL (0-0.5) H 07/31/23 12:12 Urine Color Yellow (Yellow) 07/31/23 13:45 Urine Appearance Clear (CLEAR) 07/31/23 13:45 Urine pH 5 (5-7) 07/31/23 13:45 Ur Specific [place] 1.020 (1.005-1.030) 07/31/23 13:45 Urine Protein Neg (Negative) 07/31/23 13:45 Urine Glucose (UA) 4+ (Normal) H 07/31/23 13:45 Urine Ketones 1+ (Negative) H 07/31/23 13:45 Urine Blood Neg (Negative) 07/31/23 13:45 Urine Nitrate Negative (Negative) 07/31/23 13:45 Urine Bilirubin Neg (Negative) 07/31/23 13:45 Urine Urobilinogen Norm mg/dL (Negative) 07/31/23 13:45 Ur Leukocyte Esterase Negative (Negative) 07/31/23 13:45 Urine Opiates Screen Positive ng/mL (Negative) H 07/31/23 13:45 Ur Barbiturates Screen Negative ng/mL (Negative) 07/31/23 13:45 Ur Phencyclidine Scrn Negative ng/mL (Negative) 07/31/23 13:45 Ur Amphetamines Screen Negative ng/mL (Negative) 07/31/23 13:45 U Benzodiazepines Scrn Negative ng/mL (Negative) 07/31/23 13:45 Urine Cocaine Screen Negative ng/mL (Negative) 07/31/23 13:45 U Marijuana (THC) Screen Negative ng/mL (Negative) 07/31/23 13:45 All radiology interpretation(s) finalized by discharge Discharge Plan Discharge Patient Disposition: Admitted As Inpatient Admit Provider: Марина Ochoa Clinical Impression: Pneumonia, Acute hyperglycemia, Acute renal insufficiency, Medication side effects, Hypotension Condition: Fair Discharge Diet: Usual diet Discharge Activity: Resume usual activity Coding Level of Care Code ED Balance Staff Staker for Carlos Branch
[2023-07-31 13:48] LABS: Add Urine Microscopic? NO; Charge for UA Resulting for Rev
[2023-07-31 14:00] LABS: Bilirubin Urine Neg (Negative); Blood Urine Neg (Negative); Glucose Urine UA 4+ (Normal); Ketones Urine 1+ (Negative); Leukocyte Esterase Urine Negative (Negative); Nitrate Urine Negative (Negative); Protein Urine Neg (Negative); Urine Appearance Clear (CLEAR); Urine Color Yellow (Yellow); Urobilinogen Urine Norm (Negative); pH Urine 5 (5-7)
[2023-07-31] MEDS: sodium chloride 0.9% 1,000 ML 999 ML IV (15:55)
--- NOTE | 2023-07-31 16:10 | P.HP_ITS ---
Providers/Chief Complaint Primary Care Provider: Jero Juárez MD Chief Complaint: Hypotension History of Present Illness Preston Knowles is a 77 year old male With past medical history of diabetes insulin-dependent, chronic hypoxia uses 3 L of oxygen, hypertension, BPH, COPD presented to the hospital today weakness fatigue, cough. Patient is currently altered does not know where he is, who the president is or what year it is. He was also unable to tell me his birthday. He only knows his name. He lives alone at home. History mostly obtained from brother and [id number]. Brother states that patient has been trying to take his medications however he is unsure if he is compliant. Patient states he sometimes takes them. He was admitted to the intermediate yesterday by family for therapy due to weakness. Additionally they state that he has had multiple falls in the last few months. Unsure if he hit his head or not. Today he was sent to the hospital from the intermediate for low blood pressure and shortness of breath. Not sure of the specifics however patient also had a vomiting episode a few days ago. Family is unsure if he aspirated at that time. He has been afebrile at home as far as they are aware. They state that he has been having labile blood sugars. He had adjustments done at the intermediate recently. He was at the intermediate for 1 month then got discharged and was home for 1 month and yesterday got readmitted there. His blood sugars have been reading quite high at home with a meter would not read and just report reported high. Family is unsure if he has been taking his insulin. He had an ER visit about a week ago for hypoglycemia where his medications were adjusted. He also states that his legs have been chronically erythematous with flaky skin and are usually wrapped every day. Patient did have a hospital stay in March and was discharged on Augmentin for a diabetic foot ulcer. He was also seen by podiatry at that admission. His last echo showed diastolic dysfunction with a normal EF. On arrival patient's blood pressure was systolic 80s and with fluids did increase to 109. He has been fluid responsive so far. Blood pressure however trended down again down to 70s to 80s range. He received another liter bolus. Currently patient blood pressure 96/47. He is on 3 L nasal cannula as per his chronic home use. Creatinine baseline is 1.4-1.5 range however today is 1.9. WBC normal, hemoglobin 10.5, sodium 132, BUN 60, glucose 400. Urinalysis shows 4+ glucose. He has presented from a intermediate today. Chest x-ray shows bilateral patchy lower lobe opacities which may represent atelectasis or pneumonia. Cardiomegaly. It was also noted in the ER that patient is on spironolactone, Lasix, hydrochlorothiazide, SANDRA inhibitor along with allopurinol. Medications/Allergies Home Medications Medication Instructions Recorded Confirmed Last Taken Type cholecalciferol (vitamin D3) 50 50 mcg PO DAILY 09/01/20 07/31/23 07/31/23 History mcg (2,000 unit) capsule (Vitamin D3) insulin aspart U-100 100 unit/mL 25 unit SUBCUT TID 09/02/20 07/31/23 07/31/23 History (3 mL) subcutaneous pen omega-3 fatty acids 500 mg capsule 1,000 mg PO BID 09/02/20 07/31/23 07/31/23 History tamsulosin 0.4 mg capsule 0.4 mg PO BID #60 caps 09/05/20 07/31/23 07/31/23 Rx aspirin 81 mg tablet,delayed 81 mg PO DAILY 05/23/21 07/31/23 07/31/23 History release (Adult Low Dose Aspirin) finasteride 5 mg tablet 5 mg PO DAILY 04/15/23 07/31/23 07/31/23 History formoterol fumarate 20 mcg/2 mL 2 ml inhalation BID 04/15/23 07/31/23 07/31/23 History solution for nebulization pantoprazole 40 mg tablet,delayed 40 mg PO DAILY 04/15/23 07/31/23 07/31/23 History release allopurinol 100 mg tablet 100 mg PO DAILY 07/31/23 07/31/23 07/31/23 History betamethasone dipropionate 0.05 % 1 applic topical BID 07/31/23 07/31/23 07/31/23 History topical cream bisacodyl 10 mg rectal suppository 10 mg AL DAILY PRN Constipation 07/31/23 07/31/23 Unknown History (Dulcolax (bisacodyl)) bisacodyl 5 mg tablet,delayed 10 mg PO DAILY PRN Constipation 07/31/23 07/31/23 Unknown History release (Dulcolax (bisacodyl)) cyanocobalamin (vitamin B-12) 1,000 mcg PO DAILY 07/31/23 07/31/23 07/31/23 History 1,000 mcg capsule ferrous sulfate 325 mg (65 mg 325 mg PO DAILY 07/31/23 07/31/23 07/31/23 History iron) tablet folic acid 1 mg tablet 1 mg PO DAILY 07/31/23 07/31/23 07/31/23 History furosemide 80 mg tablet 80 mg PO DAILY 07/31/23 07/31/23 07/31/23 History insulin detemir U-100 100 unit/mL 45 unit (0.45 mL) SUBCUT BEDTIME 07/31/23 07/31/23 07/30/23 Rx subcutaneous solution (Levemir #10 mL U-100 Insulin) levofloxacin 750 mg tablet 750 mg PO DAILY 7 days #7 tabs 07/31/23 Unknown Rx lisinopril 20 mg tablet 20 mg PO DAILY 07/31/23 07/31/23 07/31/23 History magnesium hydroxide 400 mg/5 mL 30 ml PO Q72H PRN Constipation 07/31/23 07/31/23 Unknown History oral suspension (Milk of Magnesia) methotrexate sodium 2.5 mg tablet 2.5 mg PO Q7D 07/31/23 07/31/23 07/29/23 History paraben-cetyl alcohol-stearyl 1 applic topical .TWICE A WEEK 07/31/23 07/31/23 07/30/23 History alcohol-propy glycol-sls topical auto cleaner sodium phosphates 19 gram-7 118 ml AL DAILY PRN Constipation 07/31/23 07/31/23 Unknown History gram/118 mL enema (Fleet Enema) tramadol 50 mg tablet 50 mg PO Q6H PRN Pain 07/31/23 07/31/23 Unknown History Allergies Allergy/AdvReac Type Severity Reaction Status Date / Time shellfish derived Allergy ADR-Gastrointestinal Verified 04/15/23 08:36 Upset PFSH Acute PFSH: Medical History (Updated 07/31/23 @ 17:03 by Марина Ochoa MD) Acute respiratory failure with hypoxia Benign prostatic hyperplasia Bifascicular block CKD stage 3 due to type 2 diabetes mellitus COPD (chronic obstructive pulmonary disease) Diabetes mellitus type 2 in obese Diabetic ulcer of foot associated with diabetes mellitus due to underlying condition, with fat layer exposed Dyspnea on exertion HTN (hypertension) Obesity (BMI 30.0-34.9) Pneumonia Rhabdomyolysis Syncope Surgical History H/O shoulder surgery Previous back surgery Family History Mother , Old age, at 94 No problems noted. Father , Old age in mid 80s No problems noted. Social History Smoking and tobacco/nicotine status: former use of tobacco/nicotine Alcohol intake: former Substance/Drug Use: never Marital status: Vitals/I&O/Wt Last Vital Signs Temp 98.2 F 07/31/23 11:53 Pulse 62 07/31/23 15:56 Resp 20 H 07/31/23 15:56 BP 96/47 07/31/23 15:56 Pulse Ox 96 07/31/23 15:56 O2 Del Method Nasal Cannula 07/31/23 12:25 O2 Flow Rate 3 07/31/23 12:25 07/31/23 07/31/23 07/31/23 06:59 14:59 22:59 Intake Total 1000 / 1000 Balance 1000 / 1000 Weight last 48 hrs Weight 97.522 kg Physical Exam Narrative: General: Alert however only oriented to self. Does not know history of birthday either., patient seen laying in bed at this time on 3 L nasal cannula. HEENT: Normocephalic, atraumatic, EOMI, Cardio: Regular rate rhythm, normal S1-S2, Respiratory: No wheezes, there are bilateral rhonchi present with decreased air entry. Mild crackles at right base. GI: Abdomen soft, nontender, bowel sounds + Extremities: Generalized edema 1+ bilateral lower extremities with erythema up to knees flaky skin with calluses on feet. Also has a foot ulcer by left heel without any purulence at this time. Data 07/31/23 12:12 07/31/23 12:12 A&P Assessment and plan (1) Pneumonia: (2) Acute renal insufficiency: (3) Medication side effects: (4) Hypotension: (5) Obesity (BMI 30.0-34.9): (6) Benign prostatic hyperplasia: (7) Diabetes mellitus type 2 in obese: (8) HTN (hypertension): Qualifiers: Hypertension type: essential hypertension Qualified Code(s): I10 - Essential (primary) hypertension (9) COPD (chronic obstructive pulmonary disease): (10) Failure to thrive: (11) Weakness: (12) Fall: Plan #Hypotension, possibly due to polypharmacy #LYNDSEY, on CKD #Diabetes mellitus, insulin-dependent #GERD #History of hypertension #Obesity #COPD chronically on 3 L oxygen #Possible pneumonia versus atelectasis? #Weakness #Diastolic heart failure Failure to Thrive ? Baseline creatinine 1.4-1.5 range. Creatinine 1.9 today possibly pre-renal cause ? Patient is status post 2 L normal saline bolus in the ER. Placed on normal saline 125 cc/h ? Place Lai catheter for accurate output ? Moderate dose intensity sliding scale insulin ACHS ? Levemir 45 units bedtime ? Levofloxacin 750 IV daily empirically cover for pneumonia ? Check blood cultures, urine culture, sputum culture Gram stain ? Oxygen therapy protocol. ? Continue aspirin, folic acid, pantoprazole, tramadol ? Hold lisinopril ? Hold Lasix for today ? DuoNeb every 6 hours as needed ? Monitor in cardiac stepdown unit ? Place on telemetry ? Check CPK. Patient does have a history of rhabdomyolysis - Check procalcitonin - Hold nephrotoxic agents -Check PT OT ? Patient does have failure to thrive and has been weak at home. He was recently admitted to intermediate yesterday for therapy. He also had a vomiting episode last few days and may have aspirated but family is unsure about it. He uses a walker to ambulate however has been unable to use that as he is very weak. Check B12, phosphorus, magnesium -Check head CT due to multiple falls recently. Diet: Cardiac diet Electrolytes: Replete as needed DNR/DNI Brother has DPOA. He states patient is DNR/DNI Attestations Medical Necessity Statement*: observation for low bp possibly secondary to polypharmacy. does have a chance of getting converted to inpatient pending clinical course. Diagnoses Pneumonia J18.9 Acute renal insufficiency N28.9 Medication side effects T88.7XXA Hypotension I95.9 Obesity (BMI 30.0-34.9) E66.9 Benign prostatic hyperplasia N40.0 Diabetes mellitus type 2 in obese E11.69; E66.9 HTN (hypertension) I10 Hypertension type: essential hypertension COPD (chronic obstructive pulmonary disease) J44.9 Failure to thrive Weakness R53.1 Fall W19.XXXA
[2023-07-31 16:22] LABS: Lactic Sepsis W/Reflex 1.6 mmol/L (0.5-2.2)
--- NOTE | 2023-07-31 16:24 | ECG_ITS ---
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 Measurements Intervals [place] Rate: 64 P: 37 MN: 223 QRS: -59 QRSD: 190 T: 33 QT: 437 QTc: 452 Interpretive Statements SINUS RHYTHM WITH SINUS ARRHYTHMIA WITH FIRST DEGREE AV BLOCK RIGHT BUNDLE BRANCH BLOCK [120+ ms QRS DURATION, UPRIGHT V1, 40+ ms S IN I/aVL/V4/V5/V6] LEFT ANTERIOR FASCICULAR BLOCK [QRS AXIS <= -45, QR IN I, RS IN II] MINIMAL VOLTAGE CRITERIA FOR LVH, CONSIDER NORMAL VARIANT [MEETS CRITERIA IN ONE OF: R(aVL), S(V1), R(V5), R(V5/V6)+S(V1)] SEPTAL MYOCARDIAL INFARCTION , PROBABLY OLD [40+ ms Q WAVE IN V1/V2] Compared to ECG 07/31/2023 12:05:20 First degree AV block now present Left anterior fascicular block now present Left-axis deviation no longer present Myocardial infarct finding still present Electronically Signed On 08-01-2023 0:47:52 DEWER by Anali Johnston M.D. [email or web address]
--- NOTE | 2023-07-31 17:03 | CTR_ITS ---
PROCEDURE INFORMATION: Exam: CT Head Without Contrast Exam date and time: 07/31/2023 10:44 PM Age: 77 years old Clinical indication: Injury or trauma; Fall; Blunt trauma (contusions or hematomas) TECHNIQUE: Imaging protocol: Computed tomography of the head without contrast. Radiation optimization: All CT scans at this facility use at least one of these dose optimization techniques: automated exposure control; mA and/or kV adjustment per patient size (includes targeted exams where dose is matched to clinical indication); or iterative reconstruction. REPORTING DATA: Count of CT and Cardiac NM exams in prior 12 months: This patient has received 2 known CTs and 0 known cardiac nuclear medicine studies in the 12 months prior to the current study. COMPARISON: CT head wo con* 04/15/2023 10:45 AM RADIATION DOSE METRICS: Total DLP (mGy-cm): 1121.08 FINDINGS: Brain: No acute intracranial hemorrhage, acute large territory infarct, or obvious mass lesion. Age appropriate diffuse cerebral volume loss. Chronic white matter changes, likely to be chronic small vessel ischemic changes. Cerebral ventricles: No ventriculomegaly. Paranasal sinuses: Visualized sinuses are unremarkable. No fluid levels. Mastoid air cells: Visualized mastoid air cells are well aerated. Bones/joints: Unremarkable. No acute fracture. Soft tissues: Unremarkable. CT/CT head wo con* [id number] IMPRESSION: No acute intracranial abnormality.
[2023-07-31] MEDS: levofloxacin-dextrose 5 % 500 MG/100 ML PREMIX 100 MG IV (17:11)
[2023-07-31 17:12] LABS: NT Pro B Type Natriuretic Pept 1263 pg/mL (0-450); Procalcitonin 0.91 ng/mL (0-0.5)
[2023-07-31 17:55] LABS: Glucose Point of Care 365 mg/dL (70-110)
[2023-07-31 18:02] LABS: Creatine Phosphokinase 48 U/L (39-308); Phosphorus 3.1 mg/dL (2.5-4.5)
[2023-07-31 18:29] LABS: Estmated Average Glucose 266; Hemoglobin A1C 10.9 % (4.0-6.0)
[2023-07-31] MEDS: heparin 5,000 unit/mL INJ 1 mL 5000 UNIT SUBCUT (18:30)
[2023-07-31] MEDS: sodium chloride 0.9% 1,000 ML 150 ML IV (18:30)
[2023-07-31] MEDS: insulin lispro 100 unit/1 mL SUBCUT ×2 (18:37→21:52)
[2023-07-31 21:53] LABS: Glucose Point of Care 381 mg/dL (70-110)
[2023-08-01] VITALS (67 sets, daily range): BP systolic 92–112; BP diastolic 42–54; PULSE 67–93; RESP 11–36; TEMP 36.7–38.8; O2SAT 92–97
[2023-08-01] MEDS: sodium chloride 0.9% 1,000 ML 100 ML IV (03:18)
[2023-08-01 04:04] LABS: Basophils # 0.1 10^3/uL (0.0-0.1); Basophils % 0.6 %; Eosinophils # 0.1 10^3/uL (0.0-0.8); Eosinophils % 1.8 %; Hematocrit 33.5 % (37-53); Lymphocytes # 0.5 10^3/uL (0.8-4.8); Mean Corpuscular HGB Conc 29.9 g/dL (30-55); Mean Corpuscular Hemoglobin 25.3 pg (27-33); Mean Corpuscular Volume 84.8 fl (82-101); Mean Platelet Volume 9.8 fL (7.4-10.4); Monocytes # 0.9 10^3/uL (0.2-0.9); Neutrophils # 6.15 10^3/uL (1.8-7.7); Neutrophils % 78.7 %; Nucleated Red Blood Cells % 0 %; Platelet Count 233 10^3/cmm (157-399); Red Blood Count 3.95 10^6/uL (3.85-5.65); Red Cell Distribution Width 15.3 % (12.1-15.1); White Blood Count 7.82 10^3/uL (3.29-11.43)
[2023-08-01 04:37] LABS: Anion Gap 17.1 (5-19); Blood Urea Nitrogen 59 mg/dL (8-23); Calcium 9.6 mg/dL (8.5-10.5); Carbon Dioxide 20 mmol/L (22-29); Chloride 104 mmol/L (98-107); Glucose 365 mg/dL (65-115); Magnesium 2.2 mg/dL (1.7-2.3); Osmolality Calculated 313 mOsm/kg (285-295); Potassium 5.1 mmol/L (3.5-5.1); Sodium 136 mmol/L (136-145)
[2023-08-01] MEDS: heparin 5,000 unit/mL INJ 1 mL 5000 UNIT SUBCUT ×2 (06:48→17:35)
[2023-08-01 07:06] LABS: Glucose Point of Care 416 mg/dL (70-110)
[2023-08-01] MEDS: finasteride 5 mg Tablet PO (08:20)
[2023-08-01] MEDS: cyanocobalamin 1,000 mcg Tablet 1000 MCG PO (08:20)
[2023-08-01] MEDS: aspirin 81 mg EC Tablet PO (08:20)
[2023-08-01] MEDS: cholecalciferol (vitamin D3) 1,000 unit Tablet 2000 UNIT PO (08:20)
[2023-08-01] MEDS: pantoprazole DR 40 mg Tablet PO (08:20)
[2023-08-01] MEDS: folic acid 1 mg Tablet PO (08:20)
[2023-08-01] MEDS: ferrous sulfate EC 325 mg Tablet PO (08:20)
[2023-08-01] MEDS: insulin lispro 100 unit/1 mL SUBCUT ×4 (08:21→22:18)
--- NOTE | 2023-08-01 10:13 | PC.NURSE ---
Physician orders Albumin q8h
[2023-08-01] MEDS: insulin glargine 100 units/1 mL 30 UNIT SUBCUT (10:34)
[2023-08-01] MEDS: albumin 25 G/100 ML BAG 60 G IV ×2 (10:34→17:36)
[2023-08-01 10:46] LABS: Glucose Point of Care 356 mg/dL (70-110)
--- NOTE | 2023-08-01 11:22 | PM.PN ---
Subjective Subjective: Hospital course, labs appreciated. Patient seen with multiple family members at bedside. Patient continues to remain somnolent. Opening his eyes and nodding slowly during the interview. Not able to follow commands or answer questions. Today morning patient was put on 2 L of supplementation for hypoxia. Urine output not documented but around 250 cc overall. Had soft blood pressures early in the morning but improving. Blood work appreciated. Vitals/I&O/Wt Last Vital Signs Temp 99.6 F 08/01/23 03:54 Pulse 80 08/01/23 08:18 Resp 18 08/01/23 08:18 BP 97/42 08/01/23 08:00 Pulse Ox 94 08/01/23 08:18 O2 Del Method Nasal Cannula 08/01/23 08:18 O2 Flow Rate 2 08/01/23 08:18 07/31/23 08/01/23 08/01/23 22:59 06:59 14:59 Intake Total 2100 / 2100 1000 / 3100 Balance 2100 / 2100 1000 / 3100 Weight last 48 hrs Weight 97.522 kg Physical Exam Narrative: General: Somnolent, not following commands, comfortable, opening eyes to verbal stimulus, not able to have conversation, nasal cannula HEENT: Normocephalic, atraumatic, EOMI, Cardio: Regular rate rhythm, normal S1-S2, Respiratory: No wheezes, there are bilateral rhonchi present with decreased air entry. Mild crackles at right base. GI: Abdomen soft, nontender, bowel sounds + Extremities: Generalized edema 1+ bilateral lower extremities with erythema up to knees flaky skin with calluses on feet. Also has a foot ulcer by left heel without any purulence at this time. Urinary Catheter Management: Lai: Cath Placed During This Visit: yes Reason for Continuing Indwelling Catheter: Accurate Measurement of Urinary Output in Critically Ill Patients Urinary Catheter Date of Insertion: 07/31/23 Urinary Catheter Time of Insertion: 17:20 Data 08/01/23 02:34 08/01/23 02:34 Micro: Microbiology 07/31/23 16:22 Blood Culture - Preliminary Blood SPECIMEN COLLECTED 07/31/23 16:26 Blood Culture - Preliminary Blood SPECIMEN COLLECTED A&P Assessment and plan (1) Pneumonia: (2) Acute renal insufficiency: (3) Medication side effects: (4) Hypotension: (5) Obesity (BMI 30.0-34.9): (6) Benign prostatic hyperplasia: (7) Diabetes mellitus type 2 in obese: (8) HTN (hypertension): Qualifiers: Hypertension type: essential hypertension Qualified Code(s): I10 - Essential (primary) hypertension (9) COPD (chronic obstructive pulmonary disease): (10) Failure to thrive: (11) Weakness: (12) Fall: (13) Altered mental status: (14) Uncontrolled diabetes mellitus: Plan #Hypotension, possibly due to polypharmacy #LYNDSEY, on CKD #Diabetes mellitus, insulin-dependent #GERD #History of hypertension #Obesity #COPD chronically on 3 L oxygen #Possible pneumonia versus atelectasis? #Weakness #Diastolic heart failure Failure to Thrive ? Baseline creatinine 1.4-1.5 range. Creatinine 1.9 today possibly pre-renal cause ? Patient is status post 2 L normal saline bolus in the ER. Placed on normal saline 125 cc/h ? Place Lai catheter for accurate output ? Moderate dose intensity sliding scale insulin ACHS ? Levemir 45 units bedtime ? Levofloxacin 750 IV daily empirically cover for pneumonia ? Check blood cultures, urine culture, sputum culture Gram stain ? Oxygen therapy protocol. ? Continue aspirin, folic acid, pantoprazole, tramadol ? Hold lisinopril ? Hold Lasix for today ? DuoNeb every 6 hours as needed ? Monitor in cardiac stepdown unit ? Place on telemetry ? Check CPK. Patient does have a history of rhabdomyolysis - Check procalcitonin - Hold nephrotoxic agents -Check PT OT ? Patient does have failure to thrive and has been weak at home. He was recently admitted to detention yesterday for therapy. He also had a vomiting episode last few days and may have aspirated but family is unsure about it. He uses a walker to ambulate however has been unable to use that as he is very weak. Check B12, phosphorus, magnesium -Check head CT due to multiple falls recently. Diet: Cardiac diet Electrolytes: Replete as needed DNR/DNI Plan for the day: Altered mental status could be in setting of possible infection, viral prodrome, possibility of worsening of baseline B12 deficiency. Drug screen to be added to urinalysis from yesterday. Patient continues to remain altered. Not sure of the reason currently. No active signs of infection other than a possible lower limb cellulitis. Patient has remained afebrile and no leukocytosis. Mildly elevated procalcitonin. Empirically start patient on IV ceftriaxone. Patient was treated for lower limb cellulitis few months ago. Culture history appreciated for Klebsiella and Staph aureus both sensitive to ceftriaxone. Check MRSA swab. Cannot rule out viral prodrome leading to altered mental status or failure to thrive. Check respiratory viral panel. Uncontrolled blood sugars. Takes 25 units 3 times daily of Humalog and 45 units of Lantus at home. Restart 40 units Lantus every morning. Continue with sliding scale moderate dose protocol. Soft blood pressures. Continue to monitor blood pressures. Stop IV fluids as patient is developing fluid overload. Last echocardiogram showed a normal EF with diastolic dysfunction. Start on albumin every 8 hourly for 1 day. Continue other chronic medications. Hold off on Flomax. Does have history of B12 deficiency. Check vitamin B12 levels. Goals of care discussed in detail with [id number] at bedside. Brother is the DPOA. Confirms DNR/DNI. They state if patient does not improve the next few days they would rather concentrate on his quality of life versus quantity and would prefer for hospice. They are agreeable with current treatment plan. Brother has DPOA. He states patient is DNR/DNI Attestations Medical Necessity Statement*: Requires further hospitalization for management of altered mental status, acute kidney injury on CKD, uncontrolled diabetes mellitus in a patient with concerns for failure to thrive. Requires hospitalization for more than 48 hours. Switch to inpatient for above said healthcare issues Diagnoses Pneumonia J18.9 Acute renal insufficiency N28.9 Medication side effects T88.7XXA Hypotension I95.9 Obesity (BMI 30.0-34.9) E66.9 Benign prostatic hyperplasia N40.0 Diabetes mellitus type 2 in obese E11.69; E66.9 HTN (hypertension) I10 Hypertension type: essential hypertension COPD (chronic obstructive pulmonary disease) J44.9 Failure to thrive Weakness R53.1 Fall W19.XXXA Altered mental status R41.82 Uncontrolled diabetes mellitus
[2023-08-01 11:26] LABS: Vitamin B12 547 pg/mL (232-1245)
[2023-08-01 11:29] LABS: Glucose Point of Care 386 mg/dL (70-110)
[2023-08-01 12:18] LABS: Amphetamines Screen Urine Negative (Negative); Barbiturates Screen Urine Negative (Negative); Benzodiazepines Screen Urine Negative (Negative); Cocaine Screen Urine Negative (Negative); Opiate Screen Urine Positive (Negative); PCP Screen Urine Negative (Negative); THC Screen Urine Negative (Negative)
[2023-08-01] MEDS: cefTRIAXone 1,000 MG in sodium chloride 0.9% (plus) 50 ML 100 MG IV (12:26)
[2023-08-01] MEDS: ipratropium-albuterol 3 mL Neb INHALATION ×2 (14:15→20:35)
[2023-08-01 14:35] LABS: Adenovirus Not Detected (NOT DETECT); Chlamydia Pneumoniae Not Detected (NOT DETECT); Coronavirus 229E,HKU1,NL63,OC4 Not Detected (NOT DETECT); Human Metapneumovirus Not Detected (NOT DETECT); Human Rhinovirus/Enterovirus Not Detected (NOT DETECT); Influenza A Not Detected (NOT DETECT); Influenza A H1 Not Detected (NOT DETECT); Influenza A H1-2009 Not Detected (NOT DETECT); Influenza A H3 Not Detected (NOT DETECT); Influenza B Not Detected (NOT DETECT); Mycoplasma Pneumoniae Not Detected (NOT DETECT); Parainfluenza Virus Type 1 Not Detected (NOT DETECT); Parainfluenza Virus Type 2 Not Detected (NOT DETECT); Parainfluenza Virus Type 3 Not Detected (NOT DETECT); Parainfluenza Virus Type 4 Not Detected (NOT DETECT); Respiratory Syncytial Virus A Not Detected (NOT DETECT); Respiratory Syncytial Virus B Not Detected (NOT DETECT); SARS-COV-2 Not Detected (NOT DETECT)
[2023-08-01] MEDS: acetaminophen 1,000 MG/100 ML PIGGYBACK 400 MG IV (15:38)
--- NOTE | 2023-08-01 16:00 | PC.NURSE ---
Patient has developed resp distress. RT and Physician notified. Patient given lasix IVP 40mg, ABG obtained, Chest xray ordered, and bipap initiated. Patient is responding well to bipap. Nurse will continue to monitor.
[2023-08-01] MEDS: FUROsemide 10 mg/mL SDV 4mL 40 MG IVP (16:05)
[2023-08-01 16:12] LABS: ABG PH Result 7.24 (7.35-7.45); Alveolar-Arterial Oxygen Gradi 11.4 mmHg (5-10); Arterial Blood Gas Hematocrit 32.9 % (42-52); Base Excess ABG -5.4 mmol/L (-2.0-2.0); Blood Gas Allen Test Pos; Blood Gas Operator Identificat GD; Blood Gas Sample Site Radial, right; Blood Gas Sample Type Arterial; Carboxyhemoglobin 1.5 %THgb (0.4-20.1); HCO3 ABG 22.1 mmol/L (22-26); HGB O2 Sat 96.9 % (95-100); Ionized Calcium Level - ABG 1.4 mmol/L (1.1-1.4); Methemoglobin 0.6 % (0.4-1.5); Oxygen Device NC; PO2 FiO2 Ratio Arterial Blood 0; Potassium Level - ABG 4.6 mmol/L (3.5-5.0); Total Hemoglobin 10.7 g/dL (14-18)
--- NOTE | 2023-08-01 16:43 | XRR_ITS ---
PROCEDURE INFORMATION: Exam: XR Chest Exam date and time: 08/01/2023 5:51 PM Age: 77 years old Clinical indication: Shortness of breath; Additional info: Resp distress TECHNIQUE: Imaging protocol: Radiologic exam of the chest. Views: 1 view. COMPARISON: CR XR chest 1V portable [id number] 07/31/2023 12:52 PM FINDINGS: Lungs: There is increasing vascular prominence with probable bilateral superimposed small patchy areas of infiltrate or atelectasis. Slightly improved but still decreased inspiratory effort. Pleural spaces: Unremarkable. No pleural effusion. No pneumothorax. Heart/Mediastinum: Unremarkable. No cardiomegaly. Bones/joints: Unremarkable. XR/XR chest 1V portable [id number] IMPRESSION: There is increasing vascular prominence with probable bilateral superimposed small patchy areas of infiltrate or atelectasis.
[2023-08-01 16:55] LABS: Glucose Point of Care 365 mg/dL (70-110)
--- NOTE | 2023-08-01 17:25 | CTR_ITS ---
PROCEDURE INFORMATION: Exam: CT Chest Without Contrast; Diagnostic Exam date and time: 08/01/2023 7:00 PM Age: 77 years old Clinical indication: Shortness of breath; Additional info: SOB TECHNIQUE: Imaging protocol: Diagnostic computed tomography of the chest without contrast. Radiation optimization: All CT scans at this facility use at least one of these dose optimization techniques: automated exposure control; mA and/or kV adjustment per patient size (includes targeted exams where dose is matched to clinical indication); or iterative reconstruction. REPORTING DATA: Count of CT and Cardiac NM exams in prior 12 months: This patient has received 3 known CTs and 0 known cardiac nuclear medicine studies in the 12 months prior to the current study. COMPARISON: CT angio chest PE protcl [id number] 05/16/2023 10:31 AM RADIATION DOSE METRICS: Total DLP (mGy-cm): 630 FINDINGS: Lungs: Chronic bilateral, peripheral interstitial coarsening. Superimposed new consolidation in the right lower lobe and right upper lobe. Pleural spaces: There is no pleural effusion or pneumothorax. Heart: Aortic valvular mitral annulus calcification. There are no pericardial fluid collections. Coronary arteries: There is moderate atherosclerotic calcification of the coronary arteries. Esophagus: No focal wall thickening. Mediastinal space: There are no enlarged mediastinal lymph nodes or masses. Lymph nodes: No enlarged hilar lymph nodes. Vasculature: There is no thoracic aortic aneurysm. There is mild scattered atherosclerotic calcification throughout the thoracic aorta. Bones/joints: Sever the e chronic wedge compression fracture of T6, no significantly changed from the comparison study. Chronic fractures with advanced healing changes of the right 8th-10th ribs and the left 7th and 9th ribs. Soft tissues: Unremarkable. Other findings: No acute findings in the included upper abdomen. CT/CT chest con [id number] IMPRESSION: 1. New, superimposed area of consolidation in the right lower lobe and right upper lobe. This is favored to represent pneumonia. 2. Severe, chronic, wedge fracture of T6. 3. Additional non emergent findings are described in the body of the report.
[2023-08-01 21:22] LABS: Glucose Point of Care 367 mg/dL (70-110)
[2023-08-01] MEDS: vancomycin 1,500 MG/300 ML PIGGYBACK 200 MG IV (23:29)
[2023-08-02] VITALS (13 sets, daily range): BP systolic 92–116; BP diastolic 47–62; PULSE 65–104; RESP 18–31; TEMP 37.6–38.4; O2SAT 94–96
[2023-08-02] MEDS: ipratropium-albuterol 3 mL Neb INHALATION ×3 (01:20→14:12)
[2023-08-02] MEDS: albumin 25 G/100 ML BAG 60 G IV (02:07)
[2023-08-02 05:01] LABS: Basophils % 0.5 %; Eosinophils # 0.2 10^3/uL (0.0-0.8); Eosinophils % 2.4 %; Lymphocytes # 0.5 10^3/uL (0.8-4.8); Lymphocytes % 7.1 %; Mean Corpuscular HGB Conc 29.1 g/dL (30-55); Mean Corpuscular Hemoglobin 25.8 pg (27-33); Mean Corpuscular Volume 88.9 fl (82-101); Mean Platelet Volume 9.7 fL (7.4-10.4); Monocytes # 0.9 10^3/uL (0.2-0.9); Monocytes % 12.2 %; Neutrophils # 5.82 10^3/uL (1.8-7.7); Neutrophils % 76.9 %; Nucleated Red Blood Cells % 0 %; Platelet Count 223 10^3/cmm (157-399); Red Cell Distribution Width 15.8 % (12.1-15.1); White Blood Count 7.57 10^3/uL (3.29-11.43)
[2023-08-02] MEDS: insulin glargine 100 units/1 mL 30 UNIT SUBCUT (05:21)
[2023-08-02] MEDS: heparin 5,000 unit/mL INJ 1 mL 5000 UNIT SUBCUT (05:22)
[2023-08-02 05:32] LABS: Alanine Aminotransferase 8 U/L (0-41); Albumin Level 2.6 g/dL (3.5-5.2); Alkaline Phosphatase 95 U/L (40-130); Aspartate Amino Transferase 18 U/L (0-40); Blood Urea Nitrogen 74 mg/dL (8-23); Carbon Dioxide 20 mmol/L (22-29); Chloride 105 mmol/L (98-107); Globulin 3.5 g/dL (1.3-4.6); Glucose 323 mg/dL (65-115); Magnesium 2.2 mg/dL (1.7-2.3); Osmolality Calculated 320 mOsm/kg (285-295); Sodium 138 mmol/L (136-145); Total Bilirubin 0.4 mg/dL (0.15-1.2); Total Protein 6.1 g/dL (6.6-8.7)
[2023-08-02 05:33] LABS: Anion Gap 17.8 (5-19); Potassium 4.8 mmol/L (3.5-5.1)
[2023-08-02 06:31] LABS: Glucose Point of Care 376 mg/dL (70-110)
--- NOTE | 2023-08-02 09:04 | PC.CHAP ---
Pastoral Care Encounter/Spiritual Assessment Type of Contact [] Declined promotions specialist visit [] Patient/Family/Request visit [] Outpatient visit [] Follow-up visit [] Physician referral [] Code/Alert [x] Routine visit [] Staff referral [] Actively dying [] Patient sleeping [x] Family support [] [] Out of room [] Palliative care [] [] Receiving care in room [] Pre-surgical visit [] Trauma [] Long length of stay [] ICU visit [] Other: Relational/Emotional Strength [x] Patient feels connected with others/family/visitors/staff [] Distress [] Loneliness/isolation [] Abandonment Spirituality of Patient [x] Person of Joan [] Attends [employer] of their Joan [x] Believes in Prayer [] Reads Bible or Shinto materials [] There are Spiritual issues to be addressed Range Master Interventions [x] Prayer [x] Active listening [] Non-anxious presence [x] Spiritual/emotional support [] Crisis/trauma care [] Spiritual counseling [] Bereavement support [] Provided bereavement packet [] Provided Bible/devotional materials [] Provided toy/stuffed animal, coloring book to patient or family member [] Provided Communion [] Anointing/[place] [] Salvation [x] Completed spiritual assessment [] Other: Impact on Illness or Injury [] Angry [] Fearful [] Anxious [] Often cries [] Exhaustion [] Unable to work [] Unable to attend yarsanism [] Unable to walk/stand [] Unable to read [] Unable to drive [] Unable to eat/drink [] Unable to sleep [] Unable to be with family [] Patient intubated [] Other: Summary Time spent with patient 5 min
[2023-08-02 11:21] LABS: Glucose Point of Care 349 mg/dL (70-110)
--- NOTE | 2023-08-02 12:48 | PM.DCS ---
Discharge Providers Date of Admission: 08/01/23 11:21 Date of Discharge: August 02, 2023 Attending Provider at Admission: Марина Ochoa MD Attending Provider at Discharge: Марина Ochoa MD Primary Care Provider: Jero Juárez MD Diagnoses at Discharge Discharge Diagnosis (1) Pneumonia: Status: Acute (2) Acute renal insufficiency: Status: Acute (3) Medication side effects: Status: Acute (4) Hypotension: Status: Acute (5) Obesity (BMI 30.0-34.9): Status: Acute (6) Benign prostatic hyperplasia: Status: Acute (7) Diabetes mellitus type 2 in obese: Status: Acute (8) HTN (hypertension): Status: Acute Qualifiers: Hypertension type: essential hypertension Qualified Code(s): I10 - Essential (primary) hypertension (9) COPD (chronic obstructive pulmonary disease): Status: Acute (10) Failure to thrive: Status: Acute (11) Weakness: Status: Acute (12) Fall: Status: Acute (13) Altered mental status: Status: Acute (14) Uncontrolled diabetes mellitus: Status: Acute Reason for Visit Reason for Visit: Hypotension Hospital Course Hospital Course Patient with past medical history of diabetes insulin-dependent with uncontrolled hyperglycemia, COPD on 3 L oxygen, hypertension, BPH, diabetic foot ulcer, lower extremity cellulitis, presented to hospital with weakness fatigue. He lives alone at home and is possibly noncompliant with his medications. Please see history physical document for more detail. Patient was admitted for LYNDSEY, hypertension, uncontrolled diabetes, weakness, failure to thrive. He was noted to have altered mental status, and found to have pneumonia. He was placed on IV antibiotics. There is also severe chronic wedge fracture of T6. Patient was seen with multiple family present at bedside. Urine output also low. Patient's family expressed wishes regarding hospice yesterday with recovering condition. I talk with them again today and they are in favor of hospice considering patient's quality of life versus quantity. They would like to stop all antibiotics IV fluids current active treatment and to send him to group home on hospice to keep him comfortable. Patient is not eating or drinking and is somnolent at this time. I have gone ahead and stopped his insulin as well due to risk of hypoglycemia. I have also stopped his blood pressure medications. Patient to see hospice [facility]. He will be sent to group home today. Family on board with the plan. All of the above was done as per patient's family's wishes including the DPOA. I also went over patient's discharge medications with patient's brother who is the DPOA. Physical Exam Narrative: No acute distress, on 5 L nasal cannula Somnolent, not very arousable, not following commands not able to have a conversation. Lungs rhonchi bilaterally present, decreased bilateral air entry Abdomen soft, does not grimace to palpation Extremities erythematous, diabetic foot ulcer present at left heel base, generalized edema 1+ bilateral lower extremities with erythema up to the knees flaky skin with calluses on feet. Urinary Catheter Management: Lai: Cath Placed During This Visit: yes Reason for Continuing Indwelling Catheter: Accurate Measurement of Urinary Output in Critically Ill Patients Urinary Catheter Date of Insertion: 07/31/23 Urinary Catheter Time of Insertion: 17:20 Discharge Data Studies Completed and Pending Completed Studies During Hospitalization Category Date Time Status CT chest wo con 14884 Stat Cat Scan 08/01/23 17:[address] head wo con* [id number] Stat Cat Scan 07/31/23 17:03 Completed XR chest 1V portable [id number] Stat Exams 07/31/23 12:40 Completed XR chest 1V portable [id number] Stat Exams 08/01/23 16:43 Completed Pending at discharge Category Date Time Status Blood Culture Stat Lab 07/31/23 16:22 Results MAG [Magnesium] AM LABS Lab 08/03/23 04:00 Ordered MAG [Magnesium] AM LABS Lab 08/04/23 04:00 Ordered MRSA [Methicillin Resistant S.aureu] Routine Lab 08/01/23 11:20 Ordered SARS Covid-2 Antigen Routine Lab 08/02/23 12:38 Uncollected Sputum Culture and Gram Stain Stat Lab 07/31/23 16:24 Uncollected Urine Culture Stat Lab 07/31/23 17:46 Results Radiology Impressions Head CT 07/31/23 17:03 IMPRESSION: No acute intracranial abnormality. Chest X-Ray 08/01/23 16:43 IMPRESSION: There is increasing vascular prominence with probable bilateral superimposed small patchy areas of infiltrate or atelectasis. Chest CT 08/01/23 17:25 IMPRESSION: 1. New, superimposed area of consolidation in the right lower lobe and right upper lobe. This is favored to represent pneumonia. 2. Severe, chronic, wedge fracture of T6. 3. Additional non emergent findings are described in the body of the report. Laboratory Results WBC 7.57 10^3/uL (3.29-11.43) 08/02/23 04:43 RBC 3.60 10^6/uL (3.85-5.65) L 08/02/23 04:43 Hgb 9.30 g/dL (11.27-16.99) L 08/02/23 04:43 Hct 32.0 % (37-53) L 08/02/23 04:43 MCV 88.9 fl (82-101) 08/02/23 04:43 MCH 25.8 pg (27-33) L 08/02/23 04:43 MCHC 29.1 g/dL (30-55) L 08/02/23 04:43 RDW 15.8 % (12.1-15.1) H 08/02/23 04:43 Plt Count 223 10^3/cmm (157-399) 08/02/23 04:43 MPV 9.7 fL (7.4-10.4) 08/02/23 04:43 Neut % (Auto) 76.9 % 08/02/23 04:43 Lymph % (Auto) 7.1 % 08/02/23 04:43 [place] % (Auto) 12.2 % 08/02/23 04:43 Eos % (Auto) 2.4 % 08/02/23 04:43 Baso % (Auto) 0.5 % 08/02/23 04:43 Neut # (Auto) 5.82 10^3/uL (1.8-7.7) 08/02/23 04:43 Lymph # (Auto) 0.5 10^3/uL (0.8-4.8) L 08/02/23 04:43 [place] # (Auto) 0.9 10^3/uL (0.2-0.9) 08/02/23 04:43 Eos # (Auto) 0.2 10^3/uL (0.0-0.8) 08/02/23 04:43 Baso # (Auto) 0.0 10^3/uL (0.0-0.1) 08/02/23 04:43 Nucleated RBC % (auto) 0 % 08/02/23 04:43 Nucleated RBCs # 0.0 /100WBC 08/02/23 04:43 Specimen Type Arterial 08/01/23 15:57 Sample Site Radial, right 08/01/23 15:57 ABG pH 7.24 (7.35-7.45) L 08/01/23 15:57 ABG pCO2 51.0 mmHg (35-45) H 08/01/23 15:57 ABG pO2 107.0 mmHg (80.0-100.0) H 08/01/23 15:57 ABG PO2/FiO2 Ratio 0 08/01/23 15:57 ABG HCO3 22.1 mmol/L (22-26) 08/01/23 15:57 ABG O2 Saturation 99.0 08/01/23 15:57 ABG Base Excess -5.4 mmol/L (-2.0-2.0) L 08/01/23 15:57 Jose Test Pos 08/01/23 15:57 A-a O2 Gradient 11.4 mmHg (5-10) H 08/01/23 15:57 Hematocrit 32.9 % (42-52) L 08/01/23 15:57 Hgb O2 Saturation 96.9 % (95-100) 08/01/23 15:57 Carboxyhemoglobin 1.5 %THgb (0.4-20.1) 08/01/23 15:57 Methemoglobin 0.6 % (0.4-1.5) 08/01/23 15:57 Total Hemoglobin 10.7 g/dL (14-18) L 08/01/23 15:57 Sodium 137.0 mmol/L (131-143) 08/01/23 15:57 Potassium 4.6 mmol/L (3.5-5.0) 08/01/23 15:57 Glucose 357.0 mg/dL (70-115) H 08/01/23 15:57 Ionized Calcium 1.4 mmol/L (1.1-1.4) 08/01/23 15:57 O2 Delivery Device Nc 08/01/23 15:57 O2 Liters/Min 4.0 % 08/01/23 15:57 FiO2 36.0 % 08/01/23 15:57 Central Processing Technician ID Gd 08/01/23 15:57 Sodium 138 mmol/L (136-145) 08/02/23 04:43 Potassium 4.8 mmol/L (3.5-5.1) 08/02/23 04:43 Chloride 105 mmol/L (98-107) 08/02/23 04:43 Carbon Dioxide 20 mmol/L (22-29) L 08/02/23 04:43 Anion Gap 17.8 (5-19) 08/02/23 04:43 BUN 74 mg/dL (8-23) H 08/02/23 04:43 Creatinine 2.1 mg/dL (0.7-1.2) H 08/02/23 04:43 GFR Calculation Not Reportable 08/02/23 04:43 Glucose 323 mg/dL (65-115) H 08/02/23 04:43 POC Glucose 349 mg/dL (70-110) H 08/02/23 11:16 Estimat Average Glucose 266 07/31/23 12:12 Hemoglobin A1c 10.9 % (4.0-6.0) H 07/31/23 12:12 Calculated Osmolality 320 mOsm/kg (285-295) H 08/02/23 04:43 Lactic Acid 1.6 mmol/L (0.5-2.2) 07/31/23 12:08 Calcium 10.0 mg/dL (8.5-10.5) 08/02/23 04:43 Phosphorus 3.1 mg/dL (2.5-4.5) 07/31/23 12:12 Magnesium 2.2 mg/dL (1.7-2.3) 08/02/23 04:43 Total Bilirubin 0.4 mg/dL (0.15-1.2) 08/02/23 04:43 AST 18 U/L (0-40) 08/02/23 04:43 ALT 8 U/L (0-41) 08/02/23 04:43 Alkaline Phosphatase 95 U/L (40-130) 08/02/23 04:43 Creatine Kinase 48 U/L (39-308) 07/31/23 12:12 NT-Pro-B Natriuret Pep 1263 pg/mL (0-450) H 07/31/23 12:12 Total Protein 6.1 g/dL (6.6-8.7) L 08/02/23 04:43 Albumin 2.6 g/dL (3.5-5.2) L 08/02/23 04:43 Globulin 3.5 g/dL (1.3-4.6) 08/02/23 04:43 Vitamin B12 547 pg/mL (232-1245) 08/01/23 02:34 Folate 13.0 ng/mL (4.5-32.2) 08/02/23 04:43 Procalcitonin 0.91 ng/mL (0-0.5) H 07/31/23 12:12 Urine Color Yellow (Yellow) 07/31/23 13:45 Urine Appearance Clear (CLEAR) 07/31/23 13:45 Urine pH 5 (5-7) 07/31/23 13:45 Ur Specific [place] 1.020 (1.005-1.030) 07/31/23 13:45 Urine Protein Neg (Negative) 07/31/23 13:45 Urine Glucose (UA) 4+ (Normal) H 07/31/23 13:45 Urine Ketones 1+ (Negative) H 07/31/23 13:45 Urine Blood Neg (Negative) 07/31/23 13:45 Urine Nitrate Negative (Negative) 07/31/23 13:45 Urine Bilirubin Neg (Negative) 07/31/23 13:45 Urine Urobilinogen Norm mg/dL (Negative) 07/31/23 13:45 Ur Leukocyte Esterase Negative (Negative) 07/31/23 13:45 Nasal Influ A H1 2008 PCR Not detected (NOT DETECT) 08/01/23 11:45 Urine Opiates Screen Positive ng/mL (Negative) H 07/31/23 13:45 Ur Barbiturates Screen Negative ng/mL (Negative) 07/31/23 13:45 Ur Phencyclidine Scrn Negative ng/mL (Negative) 07/31/23 13:45 Ur Amphetamines Screen Negative ng/mL (Negative) 07/31/23 13:45 U Benzodiazepines Scrn Negative ng/mL (Negative) 07/31/23 13:45 Urine Cocaine Screen Negative ng/mL (Negative) 07/31/23 13:45 U Marijuana (THC) Screen Negative ng/mL (Negative) 07/31/23 13:45 Adenovirus (PCR) Not detected (NOT DETECT) 08/01/23 11:45 C. pneumoniae DNA (PCR) Not detected (NOT DETECT) 08/01/23 11:45 Coronavirus 229E (PCR) Not detected (NOT DETECT) 08/01/23 11:45 Human Metapneumovir PCR Not detected (NOT DETECT) 08/01/23 11:45 Influenza A (H1) PCR Not detected (NOT DETECT) 08/01/23 11:45 Influenza A (H3) PCR Not detected (NOT DETECT) 08/01/23 11:45 Influenza Type A (PCR) Not detected (NOT DETECT) 08/01/23 11:45 Influenza Type B (PCR) Not detected (NOT DETECT) 08/01/23 11:45 M. pneumoniae (PCR) Not detected (NOT DETECT) 08/01/23 11:45 Parainfluenza 1 (PCR) Not detected (NOT DETECT) 08/01/23 11:45 Parainfluenza 2 (PCR) Not detected (NOT DETECT) 08/01/23 11:45 Parainfluenza 3 (PCR) Not detected (NOT DETECT) 08/01/23 11:45 Parainfluenza 4 (PCR) Not detected (NOT DETECT) 08/01/23 11:45 RSV Type A (PCR) Not detected (NOT DETECT) 08/01/23 11:45 RSV Type B (PCR) Not detected (NOT DETECT) 08/01/23 11:45 Entero/Rhino (PCR) Not detected (NOT DETECT) 08/01/23 11:45 SARS-CoV-2 (PCR) Not detected (NOT DETECT) 08/01/23 11:45 Vitals Last Vital Signs Temp 101.1 F H 08/02/23 12:00 Pulse 97 08/02/23 12:00 Resp 31 H 08/02/23 12:00 BP 109/62 08/02/23 12:00 Pulse Ox 96 08/02/23 12:00 O2 Del Method Nasal Cannula 08/02/23 12:00 O2 Flow Rate 4 08/02/23 09:06 FiO2 30 08/02/23 01:21 Discharge Plan Discharge Patient Disposition: Hospice - Medical Facility Condition: Fair Prescriptions: Continued tramadol 50 mg Tablet 50 mg PO Q6H PRN (Reason: Pain) Milk of Magnesia 400 mg/5 mL Suspension 30 ml PO Q72H PRN (Reason: Constipation) Dulcolax (bisacodyl) 10 mg Suppository 10 mg VA DAILY PRN (Reason: Constipation) Fleet Enema 19-7 gram/118 mL Enema 118 ml VA DAILY PRN (Reason: Constipation) betamethasone dipropionate 0.05 % cream 1 applic TOPICAL BID Dulcolax (bisacodyl) 5 mg Tablet,Delayed Release (Dr/Ec) 10 mg PO DAILY PRN (Reason: Constipation) parab-cetyl,stea alc-p.gly-sls Cleanser 1 applic TOPICAL .TWICE A WEEK Rx Instructions: ON SATURDAY AND SATURDAY pantoprazole 40 mg Tablet,Delayed Release (Dr/Ec) 40 mg PO DAILY formoterol fumarate 20 mcg/2 mL Solution For Nebulization 2 ml INHALATION BID Held insulin aspart U-100 100 unit/mL (3 mL) Insulin Pen 25 unit SUBCUT TID Hold Instructions: patient not eating Rx Instructions: WITH MEALS methotrexate sodium 2.5 mg tablet 2.5 mg PO Q7D Hold Instructions: see pcp Rx Instructions: ON SATURDAY furosemide 80 mg tablet 80 mg PO DAILY Hold Instructions: resume after pcp f/u Discontinued aspirin [Adult Low Dose Aspirin] 81 mg tablet,delayed release (DR/EC) 81 mg PO DAILY cholecalciferol (vitamin D3) [Vitamin D3] 50 mcg (2,000 unit) Capsule 50 mcg PO DAILY omega-3 fatty acids 500 mg Capsule 1,000 mg PO BID tamsulosin 0.4 mg Capsule 0.4 mg PO BID Qty: 60 0RF lisinopril 20 mg tablet 20 mg PO DAILY allopurinol 100 mg tablet 100 mg PO DAILY ferrous sulfate 325 mg (65 mg iron) Tablet 325 mg PO DAILY folic acid 1 mg Tablet 1 mg PO DAILY spironolactone 50 mg tablet 50 mg PO DAILY Levemir U-100 Insulin 100 unit/mL solution 40 unit SUBCUT BEDTIME hydrochlorothiazide 12.5 mg Tablet 12.5 mg PO DAILY cyanocobalamin (vitamin B-12) 1,000 mcg Capsule 1,000 mcg PO DAILY finasteride 5 mg Tablet 5 mg PO DAILY Discharge Orders: Discharge Order (Routine); Ordered 08/02/23 Ordered By: Марина Ochoa Referrals: Jero Juárez MD [Primary Care Provider] - 4-7 days Discharge Diet: Usual diet Discharge Activity: Resume usual activity Patient Instructions: Levofloxacin (By mouth) (Levaquin, Levaquin Leva-stalin), Insulin Detemir (By injection) (Levemir, Levemir FlexPen, Levemir..., Pain Management Activity Restrictions/Additional Instructions: Hospice at Long-Term. Patient is not eating and therefore insulin has been stopped at this time. They may do blood glucose check at the group home and place him on a sliding scale insulin if required. Patient to see the physician at the group home once there. Discharge Attestations Time Spent in Discharge Care*: greater than 30 min Quality Metrics Clinical Quality Measures [ No reported AMI, CVA or VTE this stay] Coding Level of Care Code 81559 Total time (in minutes) for Discharge: 45 Diagnoses Pneumonia J18.9 Acute renal insufficiency N28.9 Medication side effects T88.7XXA Hypotension I95.9 Obesity (BMI 30.0-34.9) E66.9 Benign prostatic hyperplasia N40.0 Diabetes mellitus type 2 in obese E11.69; E66.9 HTN (hypertension) I10 Hypertension type: essential hypertension COPD (chronic obstructive pulmonary disease) J44.9 Failure to thrive Weakness R53.1 Fall W19.XXXA Altered mental status R41.82 Uncontrolled diabetes mellitus
--- NOTE | 2023-08-02 13:17 | PC.SLP ---
Pt unable to participate in [employer] assessment due to decreased alertness.
[2023-08-02] MEDS: morphine 4 mg/mL SDV 1 mL 2 MG IVP (15:09)
--- NOTE | 2023-08-02 16:15 | PC.NURSE ---
Discharge Note Patient discharged to SNF via ambulance accompanied by ambulance personnel. 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 Mobile pharmacy medications and/or prescriptions provided. Belongings/home medications returned.
== END 2023-08-02 16:16 | disposition hospice, home (50) | DRG 314 ==
LOC: ER 15:32 → CSU 16:34
PROVIDERS: Student in an Organized Health Care Education/Training Program; Admitting Provider Internal Medicine; Emergency Provider Family Medicine; PCP Family Medicine; Visit Provider Internal Medicine
DX: I95.9 Hypotension, unspecified (principal); J18.9 Pneumonia, unspecified organism; J44.0 Chronic obstructive pulmonary disease with (acute) lower respiratory infection; N17.9 Acute kidney failure, unspecified; I13.0 Hypertensive heart and chronic kidney disease with heart failure and stage 1 through stage 4 chronic kidney disease, or unspecified chronic kidney disease; I50.30 Unspecified diastolic (congestive) heart failure; E11.65 Type 2 diabetes mellitus with hyperglycemia; E66.9 Obesity, unspecified; Z68.26 Body mass index [BMI] 26.0-26.9, adult; N40.0 Benign prostatic hyperplasia without lower urinary tract symptoms; E11.22 Type 2 diabetes mellitus with diabetic chronic kidney disease; N18.30 Chronic kidney disease, stage 3 unspecified; R29.6 Repeated falls; R41.82 Altered mental status, unspecified; Z99.81 Dependence on supplemental oxygen; S22.050D Wedge compression fracture of T5-T6 vertebra, subsequent encounter for fracture with routine healing; W19.XXXD Unspecified fall, subsequent encounter; Z51.5 Encounter for palliative care; Z11.52 Encounter for screening for COVID-19; Z87.891 Personal history of nicotine dependence; R09.02 Hypoxemia; Z91.148 Patient's other noncompliance with medication regimen for other reason; E53.8 Deficiency of other specified B group vitamins; Z66 Do not resuscitate; K21.9 Gastro-esophageal reflux disease without esophagitis
CPT/HCPCS: 36415; 36416; 36600; 51702; 70450; 71045; 71250; 80048; 80051; 80053; 80306; 81003; 82330; 82550; 82607; 82746; 82805; 82962; 83036; 83605; 83735; 83880; 84100; 84145; 85025; 87040; 87077; 87086; 87150; 87186; 87205; 87486; 87581; 87633; 93005; 94640; 94660; 96372; G0378; J0131; J0696; J1644; J1815; J1940; J1956; J2270; J3370; J7030; J7040; P9046